=== PATIENT | female | born 1995 | race Caucasian/White ===

== ENCOUNTER 2024-03-23 11:12 | Emergency (ER) | payer OTHER, SELFPAY ==
[2024-03-23 11:15] VITALS: BP 130/85; PULSE 83; RESP 18; TEMP 36.9; O2SAT 97
--- NOTE | 2024-03-23 11:28 | ED.GENADUL_ITS ---
Discharge Plan Disposition Patient Disposition: Home Condition: Stable Discharge Details Clinical Impression: Hives of unknown origin, Allergic reaction Primary Care Provider: Janeth,Local ED Provider: Mildred Aguilar Home Meds and New Rx's Prescriptions: New famotidine [Pepcid] 20 mg tablet 20 mg PO DAILY 7 Days Qty: 7 0RF Rx Instructions: Take 1 tablet daily for the next 7 days prednisone 50 mg tablet 50 mg PO DAILY 5 Days Qty: 5 0RF Rx Instructions: Take 1 tablet daily for the next 5 days No Action lamotrigine [Lamictal] 100 mg tablet 100 mg PO DAILY propranolol [Inderal LA] 120 mg capsule,extended release 24hr 120 mg PO BID escitalopram oxalate [Lexapro] 20 mg tablet 20 mg PO DAILY metformin 500 mg tablet 500 mg PO BID trazodone 50 mg tablet 50 mg PO QHS montelukast [Singulair] 10 mg tablet 10 mg PO DAILY Ajovy Autoinjector 225 mg/1.5 mL auto-injector 225 mg subcut [id number] etonogestrel-ethinyl estradiol [EluRyng] 0.12-0.015 mg/24 hr ring 1 vag ring vaginal ONCE Discharge Instructions Instructions: Allergic Reaction ED Additional Instructions: Please continue to take Claritin or Zyrtec or similar during the day as directed for hives and itching. You may take Benadryl 1 or 2 tablets every 6-8 hours as needed during the nighttime or for severe hives and itching. Please take the Pepcid and prednisone daily as directed. Keep your previously scheduled appointment with the inside sales account manager. Return to the ER for any worsening swelling of your face, trouble breathing, trouble swallowing, wheezing, if you need to use your EpiPen, or concerns. Follow up with primary care provider in 3-5 days. Return to ED sooner if any worsening or concerns. Thank you for allowing us to care for you today. Referrals: Primary Care Provider [Outside] - 5 days HPI General Mode of arrival: ambulatory . Date/Time Provider Initiated Documentation: 03/23/24 11:20 . Limitations to Documentation: no limitations . Information obtained by: patient, RN notes reviewed and old records reviewed . HPI Narrative: 28-year-old female presents to the ER with urticaria hives and pruritus and facial swelling. She has been having hives on and off for the last month and is due to see an inside sales account manager on the . However last night she reports that she started having lip and face swelling which is not normal for her, she does have swollen lips noted, no stridor lungs are clear to auscultation bilaterally. She did take 3 tablets of Benadryl last night the last around 4 AM. She has hives noted to her anterior and posterior torso. She is allergic to sulfa and cephalexin, denies any new detergents or any known source. She does take Lamictal, metformin Singulair propranolol and trazodone. Related Data Home Medications ?Medication ?Instructions ?Recorded ?Confirmed escitalopram oxalate 20 mg tablet 20 mg PO DAILY 03/23/24 03/23/24 (Lexapro) etonogestrel 0.12 mg-ethinyl 1 vag ring vaginal ONCE 03/23/24 03/23/24 estradiol 0.015 mg/24 hr vaginal ring (EluRyng) famotidine 20 mg tablet (Pepcid) 20 mg PO DAILY Allergic reaction 7 03/23/24 days #7 tabs fremanezumab-vfrm 225 mg/1.5 mL 225 mg subcut [id number] 03/23/24 03/23/24 subcutaneous auto-injector (Ajovy) lamotrigine 100 mg tablet 100 mg PO DAILY 03/23/24 03/23/24 (Lamictal) metformin 500 mg tablet 500 mg PO BID 03/23/24 03/23/24 montelukast 10 mg tablet 10 mg PO DAILY 03/23/24 03/23/24 (Singulair) prednisone 50 mg tablet 50 mg PO DAILY Inflammation 5 days 03/23/24 #5 tabs propranolol 120 mg capsule,24 120 mg PO BID 03/23/24 03/23/24 hr,extended release (Inderal LA) trazodone 50 mg tablet 50 mg PO QHS 03/23/24 03/23/24 Previous Rx's ?Medication ?Instructions ?Recorded famotidine 20 mg tablet (Pepcid) 20 mg PO DAILY Allergic reaction 7 03/23/24 days #7 tabs prednisone 50 mg tablet 50 mg PO DAILY Inflammation 5 days 03/23/24 #5 tabs Allergies Allergy/AdvReac Type Severity Reaction Status Date / Time Sulfa (Sulfonamide Allergy Severe Anaphylaxis Verified 03/23/24 11:18 Antibiotics) cephalexin (From Keflex) Allergy Intermediate Skin Rash Verified 03/23/24 11:18 General Stated Complaint: Allergic KUMAR: 3 Review of Systems All systems reviewed & are unremarkable except as noted in HPI and below Constitutional Constitutional: Reports as per HPI ENT Ears, Nose, Mouth, and Throat: Reports lip swelling Integumentary/Breasts Skin/Breast: Reports pruritus, Reports erythema and Reports rash Allergic/Immunologic Allergic/Immunologic: Reports as per HPI, Reports urticaria and Reports lip swelling Exam Narrative Exam Narrative: Constitutional: Alert and oriented x3. Appears stated age. Normal body habitus. Head: Normocephalic, no trauma. Lip swelling noted. Eyes: Pupils PERRL, Red reflex noted, EOM's intact. Eyelids symmetrical without lesions, discharge, or swelling. ENT: Bilateral TM's WNL, External ear normal to inspection, no mastoid TTP, swelling, or erythema, Nasal turbinates WNL, no nasal discharge. Normal dentition, Posterior pharynx WNL, no exudate. Chest: RRR, Normal S1, S2, distal pulses intact. Resp: Lungs clear to auscultation bilaterally, no wheezes, rales, or rhonchi. Abdomen: Soft, non-distended, Normoactive bowel sounds all 4 quads. Musculoskeletal: Normal gait, Moves all 4 extremities without difficulty. Skin: He urticaria and hives noted to anterior and posterior torso, raised red maculopapular rash, capillary refill less than 2 sec. Neurologic: Cranial nerves II-XII intact. Alert and oriented x 3. Motor: No deficits noted. Sensory: Intact bilaterally all 4 extremities. Hematologic/Lymphatic: No ecchymosis, no lymphadenopathy. Course Vital Signs Vital signs: Vital Signs Temperature 36.9 C 03/23/24 11:15 Pulse 83 03/23/24 11:15 Respiratory Rate 18 03/23/24 11:15 Blood Pressure 130/85 03/23/24 11:15 Pulse Oximetry 97 03/23/24 11:15 Temperature 36.9 C 03/23/24 11:15 Temperature Source Oral 03/23/24 11:15 Pulse 83 03/23/24 11:15 Respiratory Rate 18 03/23/24 11:15 Blood Pressure 130/85 03/23/24 11:15 Blood Pressure Position Sitting 03/23/24 11:15 Pulse Oximetry 97 03/23/24 11:15 Oxygen Delivery Method Room Air 03/23/24 11:15 Oxygen Flow Rate 0 03/23/24 11:15 Medical Decision Making 28-year-old female presents to the ER with urticaria hives and pruritus and facial swelling. She has been having hives on and off for the last month and is due to see an inside sales account manager on the . However last night she reports that she started having lip and face swelling which is not normal for her, she does have swollen lips noted, no stridor lungs are clear to auscultation bilaterally. She did take 3 tablets of Benadryl last night the last around 4 AM. She has hives noted to her anterior and posterior torso. She is allergic to sulfa and cephalexin, denies any new detergents or any known source. She does take Lamictal, metformin Singulair propranolol and trazodone. IV ordered, 125 Solu-Medrol, 20 of Pepcid and 25 of Benadryl IV. Will reevaluate after medication administration. 1158: On reevaluation patient reports that she feels her face is becoming less swollen, the redness has decreased to her hives on her torso. Will continue to observe. Patient swelling and rash is decreasing, discussed home care I will give her a prescription for Pepcid and prednisone. Discussed taking Zyrtec or Claritin during the day and Benadryl at night as needed for itching. Encouraged to get keep follow-up appointment with inside sales account manager and discussed return instructions. Patient does have an EpiPen at home. This text was generated using Gold Lasso[employer] system, please disregard any oddities of phrase or misspellings. Medical Records Medical records reviewed: Yes I reviewed the patient's medical records. Quality:SDOH Health Related Social Needs: No Data to Display PFSH All Active Problems (Updated 03/23/24 @ 12:26 by Mildred Aguilar NP) Allergic reaction (Acute) Hives of unknown origin (Acute) Social History Smoking/Tobacco Use Status: Never Smoking risk assessment performed?: Yes Alcohol Intake: current Alcohol Intake frequency: a few times a month Drug use: Never Substance use type: does not use PAWSS Have you Been Recently Intoxicated or Drunk Within the Last 30 days?: No Have you Ever Experienced Previous Episodes of Alcohol Withdrawal?: No Have you ever Experienced Withdrawal Seizures?: No Have you ever Experienced Delirium Tremens(DT)s?: No Have you ever undergone Alcohol Rehabilitation Treatment (i.e, inpt ot outpatient treatment programs)?: No Have you ever Experienced Blackouts?: No Have you ever Combined Alcohol with other Downers within the last 90 days?: No Have you ever Combined Alcohol with any other Substance of Abuse during the last 90 days?: No Positive Blood Alcohol level on Presentation? [PCS.BAL]: No Evidence of Increased Autonomic Activity (i.e. HR>120, tremor, sweating, agitation, nausea)?: No Result: 0
[2024-03-23] MEDS: methylPREDNISolone SUCC 125 MG VIAL IVP (11:41)
[2024-03-23] MEDS: Famotidine 20 MG/2 ML VIAL IVP (11:41)
[2024-03-23] MEDS: diphenhydrAMINE 50 MG/ML VIAL 25 MG IVP (11:41)
--- OUTSIDE RECORDS SUMMARY | 2024-03-23 13:11 | XMS_ITS | Encounter Summary ---
Author Organization [facility] Care Address [address] [place] [address] Care Team Providers Care Freezer Assistant Name Role Phone Julito Mayo MD Primary Care Pro vider Reason for Referral * Diagnostic Imaging (Routine) - Closed Specialty Diagnoses / Procedures Referred By Hiram montalvo Referred To Contact Diagnoses Closed displaced fracture of proximal phalanx of lesser toe of left foot with routine healing, subsequent encounter Procedures XR Toes Left Franca Hyde FNP [address] [place] [id number] Phone: tel: fax: Referral ID Status Reason Start Date Expiration Date Visits Re quested Visits Authorized [id number] Closed 09/20/2019 09/19/2020 1 1 Reason for Visit * Diagnostic Imaging (Routine) - Closed Specialty Diagnoses / Procedures Referred By Hiram montalvo Referred To Contact Diagnoses Closed displaced fracture of proximal phalanx of lesser toe of left foot with routine healing, subsequent encounter Procedures XR Toes Left Franca Hyde FNP [address] [place] [phone] Phone: tel: fax: Referral ID Status Reason Start Date Expiration Date Visits Re quested Visits Authorized [id number] Closed 09/20/2019 09/19/2020 1 1 Encounter Details Date Type Department Care Team (Latest Contact Info) Description 09/20/2019 3:11 PM EDT - 09/20/2019 11:59 PM EDT Hospital Encounter IMG DIAG X-RAY [facility] [address] [facility] [address] [place] [address] Mary Ellen, May Graciela, COLOR WEIGHER [address] [place], [place] [id number] Injury of left toe, subsequent encounter Discharge Disposition: Home with Self Care Social History Tobacco Use Types Packs/Day Years Used Date Smoking Tobacco: Never Smokeless Tobacco: Never Alcohol Use Standard Drinks/Week Comments Yes 0 (1 standard drink = 0.6 oz pur e alcohol) occas PHQ-2 Answer Date Recorded PHQ-2 Total Score 2 09/05/2019 Comments No Sex and Gender Information Value Date Recorded Sex Assigned at Not on file Legal Sex Female 11:55 PM EST Gender Identity Not on file Sexual Orientation Not on file Occupation Industry Job Start Date Job End Date student [employer] Not on file Not on file Not on file documented as of this encounter Medications at Time of Discharge B2-mag cit & ox-feverfew (MIGRELIEF) 200-180-50 mg Tab Take 1 tablet by mouth Two (2) times a day. docusate sodium (COLACE) 50 MG capsule Take by mouth Two (2) times a day. escitalopram oxalate (LEXAPRO) 20 MG tablet Take 20 mg by mouth daily. fluticasone-vilante rol (BREO ELLIPTA) 100-25 mcg/dose inhaler Inhale 1 puff nightly. HYDROcodone-acetami nophen (NORCO) 5-325 mg per tablet Take 1 tablet by mouth every six (6) hours as needed for pain. 20 tablet 08/23/2019 lamoTRIgine (LAMICTAL) 25 MG tablet Take 100 mg by mouth daily. levocetirizine (XYZAL) 5 MG tablet Take 5 mg by mouth every evening. melatonin 3 mg Tab Take 6 mg by mouth nightly. montelukast (SINGULAIR) 10 mg tablet Take 10 mg by mouth nightly. multivitamin (MULTIVITAMIN) per tablet Take 1 tablet by mouth daily. prazosin (MINIPRESS) 2 MG capsule Take 1 capsule (2 mg total) by mouth nightly. 90 capsule 3 09/05/2019 propranolol (INDERAL LA) 80 mg 24 hr capsule Take 80 mg by mouth daily. migraines propranoloL (INDERAL XL) 120 MG 24 hr capsule Take 120 mg by mouth every morning. thyroid, pork, (ARMOUR THYROID) 180 mg Tab Take by mouth nightly. traZODone (DESYREL) 50 MG tablet Take 50 mg by mouth nightly. norethindrone-ethin yl estradiol (02/25, ,) 1-20 mg-mcg per tabletIndications:E ncounter for surveillance of contraceptive pills Take 1 tablet by mouth daily. 84 tablet 09/05/2019 0 documented as of this encounter Plan of Treatment Not on file documented as of this encounter Procedures Procedure Name Priority Date/Time Associated Diagnosis Comments XR TOES LEFT Routine 09/20/2019 3:21 PM EDT Injury of left toe, subsequent encounter documented in this encounter Results * XR Toes Left (09/20/2019 3:21 PM EDT) Anatomical Region Laterality Modality Foot Left Radiographic Iveth ging 09/20/2019 3:26 PM EDT Impressions 09/20/2019 3:27 PM EDT Healing and otherwise unchanged small toe proximal phalanx fracture. Narrative 09/20/2019 3:27 PM EDT EXAM: XR TOES LEFT DATE: 09/20/2019 3:21 PM DICTATED: 09/20/2019 3:26 PM INTERPRETATION LOCATION: [facility] [place] CLINICAL INDICATION: 24 years old Female with eval left 5th toe injury ??- S99.922D - Injury of left toe, subsequent encounter ?? COMPARISON: 08/19/2019 TECHNIQUE: AP, lateral, oblique views of the left fifth toe. FINDINGS: Healing minimally displaced transverse fracture of the small toe proximal phalanx with callus formation. Alignment is unchanged. No new fracture. Joint spaces are preserved. Decreased soft tissue swelling. Procedure Note Nate Mclean MD - 09/20/2019 EXAM: XR TOES LEFT DATE: 09/20/2019 3:21 PM DICTATED: 09/20/2019 3:26 PM INTERPRETATION LOCATION: [facility] [place] CLINICAL INDICATION: 24 years old Female with eval left 5th toe injury -S99.922D - Injury of left toe, subsequent encounter COMPARISON: 08/19/2019 TECHNIQUE: AP, lateral, oblique views of the left fifth toe. FINDINGS: Healing minimally displaced transverse fracture of the small toe proximalphalanx with callus formation. Alignment is unchanged. No new fracture.Joint spaces are preserved. Decreased soft tissue swelling. IMPRESSION: Healing and otherwise unchanged small toe proximal phalanx fracture. May Graciela Hyde COLOR WEIGHER IMG DIAGNOSTIC IMAGING ORDERABLES Final Result documented in this encounter Visit Diagnoses Diagnosis Injury of left toe, subsequent encounter documented in this encounter Care Teams Freezer Assistant Relationship Specialty Start Date End Date Julito Mayo MD [address] [place] [id number] PCP - General Family Medicine 09/06/19 02/11/20 documented as of this encounter
--- OUTSIDE RECORDS SUMMARY | 2024-03-23 13:11 | XMS_ITS | Clinical Summary ---
Author Organization [facility] Care Address [address] [place] [address] Care Team Providers Care Lumber Material Handler Name Role Phone Natanael Santoyo MD Primary Care Provider + Source Comments In the event that these patient records contain information protected by 42 CFRpart 2 (i.e., would identify the patient as a substance abuser and was obtainedby a federally assisted substance abuse program to diagnose, refer fortreatment or treat the patient for substance abuse), please be advised of thefollowing: This information has been disclosed to you from records protected by Federalconfidentiality rules (42 CFR part 2). The Federal rules prohibit you frommaking any further disclosure of this information unless further disclosure isexpressly permitted by the written consent of the person to whom it pertains oras otherwise permitted by 42 CFR part 2. A general authorization for therelea se of medical or other information is NOT sufficient for this purpose.The Federal rules restrict any use of the information to criminally investigateor prosecute any alcohol or drug abuse patient. expressly permitted by the written consent of the person to whom it pertains or as otherwise permitted by 42 CFR part 2. A general authorization for the release of medical or other information is NOT sufficient for this purpose. The Federal rules restrict any use of the information to criminally investigate or prosecute any alcohol or drug abuse patient.[facility] Allergies Active Allergy Reactions Criticality Noted Date Comments Cephalosporins Rash Low 03/07/2014 Sulfa (Sulfonamide Antibiotics) Anaphylaxis High Medications B2-mag cit & ox-feverfew (MIGRELIEF) 200-180-50 mg Tab Take 1 tablet by mouth Two (2) times a day. Active fluticasone-moe anterol (BREO ELLIPTA) 100-25 mcg/dose inhaler Inhale 1 puff nightly. Active docusate sodium (COLACE) 50 MG capsule Take by mouth Two (2) times a day. Active propranolol (INDERAL LA) 80 mg 24 hr capsule Take 80 mg by mouth daily. migraines Active lamoTRIgine (LAMICTAL) 25 MG tablet Take 100 mg by mouth daily. Active traZODone (DESYREL) 50 MG tablet Take 50 mg by mouth nightly. Active thyroid, pork, (ARMOUR THYROID) 180 mg Tab Take by mouth nightly. Active multivitamin (MULTIVITAMIN) per tablet Take 1 tablet by mouth daily. Active melatonin 3 mg Tab Take 6 mg by mouth nightly. Active propranoloL (INDERAL XL) 120 MG 24 hr capsule Take 120 mg by mouth every morning. Active escitalopram oxalate (LEXAPRO) 20 MG tablet Take 20 mg by mouth daily. Active levocetirizine (XYZAL) 5 MG tablet Take 5 mg by mouth every evening. Active montelukast (SINGULAIR) 10 mg tablet Take 10 mg by mouth nightly. Active HYDROcodone-tye taminophen (NORCO) 5-325 mg per tablet Take 1 tablet by mouth every six (6) hours as needed for pain. 20 tablet 0 Active Additional Information Patient not taking.Reported on 10/24/2019 prazosin (MINIPRESS) 2 MG capsule Take 1 capsule (2 mg total) by mouth nightly. 90 capsule 3 0 Active JUNEL 1.5/, 21, 1.5-30 mg-mcg Tab TAKE 1 TABLET ONCE DAILY 84 tablet 0 Active predniSONE (DELTASONE) 20 MG tablet 3 po daily for 2 days, then 2 po daily for 2 days, then 1 po daily for 2 days 12 tablet 4 Active Active Problems Problem Noted Date Diagnosed Date Anxiety 09/05/2019 Gastroesophageal reflux disease 09/05/2019 Allergic rhinitis 09/05/2019 Migraine without aura and wi thout status migrainosus, not intractable 02/06/2018 Chondromalacia patellae 12/01/2017 Obesity (BMI 30-39.9) 11/20/2017 Mild intermittent asthma with acute exacerbation 04/20/2015 Raynaud's phenomenon 10/15/2014 Other specified behavioral a nd emotional disorders with onset usually occurring in childhood and adolescence 10/15/2014 Attention deficit disorder 10/15/2014 Depression 10/15/2014 Headache 10/15/2014 Acquired hypothyroidism 10/07/2006 Immunizations Immunization Administration Dates Next Due DTaP 12/15/1998, 9,01/12/1998,11/11 HPV Quadrivalent (Gardasil) 12/16/2010, 1,05/19/2010 Hepatitis A Vaccine Pediatri c / Adolescent 2 Dose IM 12/16/2010,05/19/2010 Hepatitis B vaccine, pediatric/adolescent dosage, 01/12/1998,1997,1997 HiB, unspecified 12/15/1998,01/12/1998, 8 INFLUENZA TIV (TRI) PF (IM)(HISTORICAL) 11/22/2013 Influenza Vaccine Quad(IM)6 MO-Adult(PF) 11/27/2018,11/17/2017 MMR 06/24/2002,09/21/1998 Meningococcal Conjugate MCV4P 11/17/2017, 009 PNEUMOCOCCAL POLYSACCHARIDE 23-VALENT 06/26/2018 TdaP 11/06/2016 Varicella 11/30/2006,09/21/1998 Family History Medical History Relation Name Comments Hyperlipidemia Father Hypertension Father Anxiety disorder Mother Depression Mother Heart disease Paternal Grandfather Diabetes Paternal Grandmother Relation Name Status Comments Father Alive Mother Alive Paternal Grandfather Paternal Grandmother Social History Tobacco Use Types Packs/Day Years Used Date Smoking Tobacco: Never Smokeless Tobacco: Never Alcohol Use Standard Drinks/Week Comments Yes 0 (1 standard drink = 0.6 oz pur e alcohol) occas PHQ-2 Answer Date Recorded PHQ-2 Total Score 2 09/05/2019 Substance Use Answer Date Recorded In the past year, how often have you used prescription drugs for non-medical reasons? Not on file 12/16/2023 In the past year, how often have you used illega l drugs? Not on file 12/16/2023 In the past year, have you u sed any substance for non-medical reasons? No 12/16/2023 Comments No Sex and Gender Information Value Date Recorded Sex Assigned at Not on file Legal Sex Female 11:55 PM EST Gender Identity Not on file Sexual Orientation Not on file Occupation Industry Job Start Date Job End Date student [employer] Not on file Not on file Not on file Last Filed Vital Signs Vital Sign Reading Time Taken Comments Blood Pressure 111/86 11/20/2023 7:21 PM EDT Pulse 95 11/20/2023 7:21 PM EDT Temperature 37.9 ??C (100.3 ??F) 11/20/2023 10:45 PM EDT Respiratory Rate 19 11/20/2023 7:21 PM EDT Oxygen Saturation 94% 11/20/2023 10: 45 PM EDT DOWN TO 91% WHILE AMBULATING, PAC AWARE Inhaled Oxygen Concentration - - Weight 98.4 kg (217 lb) 11/20/2023 7:19 PM EDT Height 147.3 cm (4' 10) 11/20/2023 7:1 9 PM EDT Body Mass Index 45.35 11/20/2023 7:19 PM EDT Plan of Treatment Health Maintenance Due Date Last Done Comments Pap Smear with Reflex HPV (21-) 03/04/2023 03/04/2020 COVID-19 Vaccine ( season) 2023 05/05/2020, 04/06/2020 Influenza Vaccine (#1) 2023 9, 11/17/2017, 11/22/2013, Additional history exists DTaP/Tdap/Td Vaccines (8 - Td or Tdap) 11/06/2026 11/06/2016, 09/16/2008, 06/24/2002, Additional history exists HPV Vaccines Completed 12/16/2010, 0707/2010, 05/19/2010 Hepatitis C Screen Completed 01/26/2017 Pneumococcal Vaccine 0-49 Aged Out 06/26/2018 No longer eligible based on patient's age to complete [place] [address] [place] [address] [facility] [employer] Care Teams Lumber Material Handler Relationship Specialty Start Date End Date Natanael Santoyo MD [address] [place] [id number] PCP - General Internal Medicine 11/20/23
--- OUTSIDE RECORDS SUMMARY | 2024-03-23 13:11 | XMS_ITS | Encounter Summary ---
Author Organization [facility] Health Care Address [address] [place] [id number] Care Team Providers Care Building Construction Foreman Name Role Phone Toshia Heller MD Primary Care [facility] Reason for Referral * Generic Referral (Routine) - Closed Specialty Diagnoses / Procedures Referred By Contac t Referred To Contact Obstetrics and Gynecology Diagnoses Encounter for surveillance of contraceptive pills Well woman exam Julito Mayo MD [address] [place] [id number] Phone: tel: fax: [facility] [address] [place] [address] Phone: tel: fax: Referral ID Status Reason Start Date Expiration Date V isits Requested Visits Authorized [id number] Closed Specialty Services Required 09/05/2019 09/04/2020 1 1 * Generic Referral (Routine) - Closed Specialty Diagnoses / Procedures Referred By Contac t Referred To Contact Diagnoses Gastroesophageal reflux disease, esophagitis presence not specified Abdominal pain, unspecified abdominal location Julito Mayo MD [address] [place] [address] Phone: tel: fax: Referral ID Status Reason Start Date Expiration Date V isits Requested Visits Authorized [id number] Closed Specialty Services Required 09/05/2019 09/04/2020 1 1 * Generic Referral (Routine) - Closed Specialty Diagnoses / Procedures Referred By Contac t Referred To Contact Orthopedic Surgery Diagnoses Closed nondisplaced fracture of phalanx of lesser toe of left foot, unspecified phalanx, sequela Julito Mayo MD [address] [address] Phone: tel: fax: [facility] [address] [address] Phone: tel: fax: Referral ID Status Reason Start Date Expiration Date V isits Requested Visits Authorized [id number] Closed Specialty Services Required 09/05/2019 09/04/2020 1 1 * Generic Referral (Routine) - Closed Specialty Diagnoses / Procedures Referred By Contac t Referred To Contact Diagnoses Acquired hypothyroidism Julito Mayo MD [address] [address] Phone: tel: fax: Referral ID Status Reason Start Date Expiration Date V isits Requested Visits Authorized [id number] Closed Specialty Services Required 09/05/2019 09/04/2020 1 1 * Generic Referral (Routine) - Closed Specialty Diagnoses / Procedures Referred By Contac t Referred To Contact Diagnoses Migraine without aura and without status migrainosus, not intractable Julito Mayo MD [address] [address] Phone: tel: fax: Referral ID Status Reason Start Date Expiration Date V isits Requested Visits Authorized [id number] Closed Specialty Services Required 09/05/2019 09/04/2020 1 1 * Generic Referral (Routine) - Closed Specialty Diagnoses / Procedures Referred By Contac t Referred To Contact Diagnoses Mild intermittent asthma with acute exacerbation Allergic rhinitis, unspecified seasonality, unspecified trigger Julito Mayo MD [address] [place] [address] Phone: tel: fax: Referral ID Status Reason Start Date Expiration Date V isits Requested Visits Authorized [id number] Closed Specialty Services Required 09/05/2019 09/04/2020 1 1 Reason for Visit * Reason Comments Establish Care Referral Setup requesting referrals to allergy dr. Buchanan at [facility] backdated to july. Dr. Elias [address] [place] [address] [facility] Dr. Niko luna gastro back dated to april, [facility] back dated to this past monday, therapist nicole stack with [facility] in [place], [place], Would like General referral to Gynecology * Generic Referral (Routine) - Closed Specialty Diagnoses / Procedures Referred By Hiram montalvo Referred To Contact Family Medicine Diagnoses establish care Procedures NEW GENERAL [facility] [address] [place] [address] Phone: tel: fax: Julito Mayo MD [facility] [place] [address] Phone: tel: fax: Referral ID Status Reason Start Date Expiration Date Visits Re quested Visits Authorized [id number] Closed 09/05/2019 09/04/2020 1 1 Encounter Details Date Type Department Care Team (Latest Contact Info) Description 09/05/2019 11:10 AM EDT Office Visit [facility] [address] [place] [address] Julito Mayo MD [facility] [place] [address] Acquired hypothyroidism (Primary Dx); Mild intermittent asthma with acute exacerbation; Migraine without aura and without status migrainosus, not intractable; Recurrent major depressive disorder, remission status unspecified ([facility]); Attention deficit disorder, unspecified hyperactivity presence; Allergic rhinitis, unspecified seasonality, unspecified trigger; Encounter for surveillance of contraceptive pills; Well woman exam; Closed nondisplaced fracture of phalanx of lesser toe of left foot, unspecified phalanx, sequela; Gastroesophageal reflux disease, esophagitis presence not specified; Abdominal pain, unspecified abdominal location; Anxiety Social History Tobacco Use Types Packs/Day Years [...] on file documented as of this encounter Last Filed Vital Signs Vital Sign Reading Time Taken Comments Blood Pressure 116/74 09/05/2019 11:08 AM EDT Pulse 77 09/05/2019 11:08 AM EDT Temperature 37.4 ??C (99.4 ??F) 09/05/2019 11:08 AM E DT Respiratory Rate - - Oxygen Saturation 98% 09/05/2019 11:08 AM EDT Inhaled Oxygen Concentration - - Weight 96.4 kg (212 lb 8 oz) 09/05/2019 11:08 AM EDT Height 147.3 cm (4' 10) 09/05/2019 11:08 AM EDT Body Mass Index 44.41 09/05/2019 11:08 AM EDT documented in this encounter Functional Status documented as of this encounter Patient Instructions * Patient Instructions* Julito Mayo MD - 09/05/2019 11:10 AM EDT Images from the original note were not included. Patient Education Heart-Healthy Diet: Care Instructions Your Care Instructions A heart-healthy diet has lots of vegetables, fruits, nuts, beans, and whole grains, and is low in salt. It limits foods that are high in saturated fat, such as meats, cheeses, and fried foods. It maybe hard to change your diet, but even small changes can lower your risk of heart attack and heart disease. Follow-up care is a marie part of your treatment and safety. Be sure to make and go to all appointments, and call your doctor if you are having problems. It's also a good idea to know your test resultsand keep a list of the medicines you take. How can you care for yourself at home? Watch your portions ?? Learn what a serving is. A serving and a portion are not always the same thing. Make sure that you are not eating larger portions than are recommended. For example, a serving of pasta is ?? cup. A serving size of meat is 2 to 3 ounces. A 3-ounce serving is about the size of a deck of cards. Measure serving sizes until you are good at eyeballing them. Keep in mind that restaurants often serve portions that are 2 or 3 times the size of one serving. ?? To keep your energy level up and keep you from feeling hungry, eat often but in smaller portions. ?? Eat only the number of calories you need to stay at a healthy weight. If you need to lose weight, eat fewer calories than your body coates (through exercise and other physical activity). Eat more fruits and vegetables ?? Eat a variety of fruit and vegetables every day. Dark green, deep orange, red, or yellow fruits and vegetables are especially good for you. Examples include spinach, carrots, peaches, and berries. ?? Keep carrots, celery, and other veggies handy for snacks. Buy fruit that is in season and store it where you can see it so that you will be tempted to eat it. ?? Cook dishes that have a lot of veggies in them, such as stir-fries and soups. Limit saturated and trans fat ?? Read food labels, and try to avoid saturated and trans fats. They increase your risk of heart disease. ?? Use olive or canola oil when you cook. ?? Bake, broil, grill, or steam foods instead of frying them. ?? Choose lean meats instead of high-fat meats such as hot dogs and sausages. Cut off all visible fat when you prepare meat. ?? Eat fish, skinless poultry, and meat alternatives such as soy products instead of high-fat meats. Soy products, such as tofu, may be especially good for your heart. ?? Choose low-fat or fat-free milk and dairy products. Eat foods high in fiber ?? Eat a variety of grain products every day. Include whole-grain foods that have lots of fiber andnutrients. Examples of whole-grain foods include oats, whole wheat bread, and brown rice. ?? Buy whole-grain breads and cereals, instead of white bread or pastries. Limit salt and sodium ?? Limit how much salt and sodium you eat to help lower your blood pressure. ?? Taste food before you salt it. Add only a little salt when you think you need it. With time, your taste buds will adjust to less salt. ?? Eat fewer snack items, fast foods, and other high-salt, processed foods. Check food labels for the amount of sodium in packaged foods. ?? Choose low-sodium versions of canned goods (such as soups, vegetables, and beans). Limit sugar ?? Limit drinks and foods with added sugar. These include candy, desserts, and soda pop. Limit alcohol ?? Limit alcohol to no more than 2 drinks a day for men and 1 drink a day for women. Too much alcohol can cause health problems. When should you call for help? Watch closely for changes in your health, and be sure to contact your doctor if: ?? You would like help planning heart-healthy meals. Where can you learn more? Go to [facility] at https://[facility].org Select bluebird bio under the Resources menu. Enter V137 in the search box to learn more about Heart-Healthy Diet: Care Instructions. Current as of: September 27, 2018?Content Version: 12.5 ?? [id number] [employer]. Care instructions adapted under license by [facility]. If you have questions about a medical condition or this instruction, always ask your healthcare professional. [employer] disclaims any warranty or liability for your use of this information. documented in this encounter Progress Notes * Julito Mayo MD - 09/05/2019 11:10 AM EDT CC: Chief Complaint Patient presents with ??? Establish Care ??? Referral Setup requesting referrals to allergy dr. Buchanan at [facility] backdated to july. [facility] backdated to april, [facility], [facility]. Dr. Niko luna gastro back dated to april, [facility] back dated to this past monday, therapist nicole stack with [facility] in [place], Would like General referral to Gynecology S: -- Establishing care, needs referrals for continued care. -- Sees Allergy Ptnrs for A/A issues. Paul Tavera Singulair. Has a prn albuterol, uses once per 6 mo. Occas slight sx that she is able to manage w/o MDI. Triggers = exercise, URIs, some AIA sx. Never had allergy shots. Manageable for now. -- Migraines. Dxd since a child. Currently gets one r/t caffeine, chocolate etc. Occurs once a month or less. Inderal 120am and 80pm preventive; abortive is Imitrex shots, or naratriptan PO; also hasajovy q3m, and ubrelvy. Atarax prn TRUONG as well has helped. No viz loss or N/W extrs. No aura. In past could occur when awakening. No snoring or wit apnea. -- Endocrine for hypothyroid and short stature. Dxd 11yo. No XRT or surgery to thyroid. Was found oneval of falling off the growth chart. States TSH>100 before meds. Was on GH shots for 4 yrs as well, of those now (since menarche). Denies concerns about thyroid dose; states very stable past couple yrs -- [facility] Ortho for fx toe. See note in chart. Was running c dog, tripped and it went out. No surgery,just hard soled shoe. Sporadic Lortab now. Pain off/on. Has f/u next mo. -- Dr. Pope for GERD, also some ill defined abd pains. PRN Bentyl helps that. Initial sx were some ocas vomiting. She had bell out was crystallized, helped partially. PRN Zofran used for these sx as well, QOD-QD use 4mg ODT. Workup still in progress per pt. No BRB/melena. Tends to some constipated, has Colace. Bentyl does not worsen her constipation. BM q3d. Had tried Linzess samples that helped some. Does not like Miralax. -- Mood d/o since 13yo. Denies BPD, just anx/dep/ADHD. Lamictal, Lexapro been on Lamitcal few yrs, resumed Lexapro 6mo ago. In general they do well for her sx. Has ? OTC lithium supp. No current hopeless/SI thought (has had in past). Has had panic attacks in past, but therapy is helping. Has Klonopin for prn use. Has done DBT/mindfullness tx in past. Feels in control of sx @ present. Has Trazodone for sleep. Also has Prazosin 2mg from Neuro for night terrors. -- desires FIRE ENGINE PUMP OPERATOR referral for routine care. On OCPs for irreg menses as well. OCP does not worsen hermigraines or mood. No ACHES sx on it (nothing new since she got on it 3-4 yr ago related to above. ROS above. Otherwise 10 point ROS negative as per intake form. Past Medical History: Diagnosis Date ??? Acid reflux ??? ADHD (attention deficit hyperactivity disorder) ??? Anemia ??? Anxiety ??? Asthma ??? Benign essential tremor ??? Depression ??? History of Helicobacter pylori infection ??? History of MRSA infection 2013 left leg ??? Hypothyroidism, juvenile ??? IgA deficiency (CMS-HCC) ??? Low ferritin ??? Migraines ??? Obesity Past Surgical History: Procedure Laterality Date ??? COLONOSCOPY ? ulcer ??? ESOPHAGOGASTRODUODENOSCOPY x2 ??? KNEE ARTHROSCOPY Bilateral ??? [place] LAP,CHOLECYSTECTOMY N/A 06/15/2017 Procedure: LAPAROSCOPIC CHOLECYSTECTOMY; Surgeon: New Felton MD; Location: [facility]; Service: General Surgery ??? TONSILLECTOMY AND ADENOIDECTOMY ??? TYMPANOSTOMY TUBE PLACEMENT Bilateral Family History Problem Relation Age of Onset ??? Depression Mother ??? Anxiety disorder Mother ??? Hypertension Father ??? Hyperlipidemia Father ??? Diabetes Paternal Grandmother ??? Heart disease Paternal Grandfather Social History Socioeconomic History ??? Marital status: Single Spouse name: None ??? Number of children: None ??? Years of education: None ??? Highest education level: None Occupational History ??? Occupation: student [employer] Social Needs ??? Financial resource strain: None ??? Food insecurity Worry: None Inability: None ??? Transportation needs Medical: None Non-medical: None Tobacco Use ??? Smoking status: Never Smoker ??? Smokeless tobacco: Never Used Substance and Sexual Activity ??? Alcohol use: Yes Frequency: Monthly or less Comment: occas ??? Drug use: No ??? Sexual activity: Yes Partners: Male control/protection: Pill Lifestyle ??? Physical activity Days per week: None Minutes per session: None ??? Stress: None Relationships ??? Social connections Talks on phone: None Gets together: None Attends mormon service: None Active member of club or organization: None Attends meetings of clubs or organizations: None Relationship status: None Other Topics Concern ??? None Social History Narrative ??? None Allergies Allergen Reactions ??? Sulfa (Sulfonamide Antibiotics) Anaphylaxis ??? Cephalosporins Rash Current Outpatient Medications: ? ? B2-mag cit & ox-feverfew (MIGRELIEF) 200-180-50 mg Tab, Take 1 tablet by mouth Two (2) times a day. , Disp: , Rfl: ??? docusate sodium (COLACE) 50 MG capsule, Take by mouth Two (2) times a day., Disp: , Rfl: ??? escitalopram oxalate (LEXAPRO) 20 MG tablet, Take 20 mg by mouth daily., Disp: , Rfl: ??? fluticasone-vilanterol (BREO ELLIPTA) 100-25 mcg/dose inhaler, Inhale 1 puff nightly., Disp: , Rfl: ??? HYDROcodone-acetaminophen (NORCO) 5-325 mg per tablet, Take 1 tablet by mouth every six (6) hours as needed for pain., Disp: 20 tablet, Rfl: 0 ??? lamoTRIgine (LAMICTAL) 25 MG tablet, Take 100 mg by mouth daily. , Disp: , Rfl: ??? levocetirizine (XYZAL) 5 MG tablet, Take 5 mg by mouth every evening., Disp: , Rfl: ??? melatonin 3 mg Tab, Take 6 mg by mouth nightly., Disp: , Rfl: ??? montelukast (SINGULAIR) 10 mg tablet, Take 10 mg by mouth nightly., Disp: , Rfl: ??? multivitamin (MULTIVITAMIN) per tablet, Take 1 tablet by mouth daily., Disp: , Rfl: ??? norethindrone-ethinyl estradiol (JUNEL ,) 1-20 mg-mcg per tablet, Take 1 tablet by mouth daily., Disp: , Rfl: ??? propranolol (INDERAL LA) 80 mg 24 hr capsule, Take 80 mg by mouth daily. migraines , Disp: , Rfl: ??? propranoloL (INDERAL XL) 120 MG 24 hr capsule, Take 120 mg by mouth every morning., Disp: , Rfl: ??? thyroid, pork, (ARMOUR THYROID) 180 mg Tab, Take by mouth nightly., Disp: , Rfl: ??? traZODone (DESYREL) 50 MG tablet, Take 50 mg by mouth nightly., Disp: , Rfl: Vitals: 09/05/19 1108 BP: 116/74 Pulse: 77 Temp: 37.4 ??C (99.4 ??F) SpO2: 98% Vitals: 09/05/19 1108 Weight: 96.4 kg (212 lb 8 oz) O: GEN: WDWN. NAD. nontoxic. EYES: PERRL. EOMI. no conjunctivitis or jaundice. ENT: TMs normal without eryth, opacity, or bulge. EACs benign withouth eryth, edema, or lesions. NECK: Supple. No LAD. 2+ carotids. No carotid bruits. Posterior neck MMs somethat tight. Thyroid mild generous but symmetric, no palpable nodules. HEART: RRR. no MGR. LUNG: CTAB. unlabored. no WRR. ABD: Soft. Nontender. Nondistended. NABS. No HSM palpable. No midline bruits. No rebound, guarding,or rigidity. EXTREMETIES: Warm and dry. No PTE. NEURO: Good gait. SKIN: No jaundice. No mottling. No unusual pallor. MALE: FEMALE: BREAST: PSY: Normal mood. Normal affect. Well kempt. Clear and coherent thought and speech. A/P: -- A/A stable, manageable, ok referral. -- Migraines stable, ok referral. -- Hypothyroid, ok referral. Gets labs there. She does not recall a PCOS w/u in past, could consider asking them (or FIRE ENGINE PUMP OPERATOR) given abnl menses, obesity, etc. -- ok referral for continued f/u @ [facility] Ortho for toe fx. -- GERD, also ill defined abd pains, constipation issues, cramps etc, poss IBS? Await notes, ok referral. -- Anxiety, depression, ADHD, stable, ok referral. -- ok referral for routine FIRE ENGINE PUMP OPERATOR care. Gave 1 rf of BCPs pending. Tolerated well. -- Will await specialist notes and follow along. OK to f/u here for next routine CPE, or prn. Medication adherence and barriers to the treatment plan have been addressed. Opportunities to optimize healthy behaviors have been discussed. Patient / caregiver voiced understanding. Barriers to goals identified and addressed. Pertinent handouts given today if indicated. Encouragedkeeping regular logs as indicated for me to review at next visit if indicated. No outside resources/referrals needed at this time unless listed. The potential common side effects and benefits associated with any new medications that were prescribed today were discussed and patient expressed understanding and agreement to the treatment plan. documented in this encounter Plan of Treatment Not on file documented as of this encounter Results * Ambulatory referral to Gynecology (10/04/2019) Impressions Natty Boucher - 10/04/2019 Unable to contact patient after numerous times Per [facility] van driver helper at [facility] us Julito Mayo MD OUTPATIENT REFERR AL ORDERABLES Final Result * Ambulatory referral to Orthopedic Surgery (09/20/2019) Impressions Natty Boucher - 09/20/2019 Saw Franca Hyde at [facility] Ortho on 09/20/19 Office notes are in epic under the chart review tab then see encounters us Julito Mayo MD OUTPATIENT REFERR AL ORDERABLES Final Result * Ambulatory referral to Neurology (07/19/2019) Result María Elena Mayo MD OUTPATIENT REFERR AL ORDERABLES Final Result * Ambulatory referral to Immunology (07/17/2019) ImpressionNatty Lamb - 07/17/2019 She is a patient of Dr Isabel Schroeder and was seen on 07/17/19 And needed a back dated authorization for that visit Result María Elena Mayo MD OUTPATIENT REFERR AL ORDERABLES Final Result * Ambulatory referral to Endocrinology (05/31/2019) Natty Garrido - 05/31/[address] Edie Oconnor on 05/31/19 at [place] Office notes are in care everywhere us Julito Mayo MD OUTPATIENT REFERR AL ORDERABLES Final Result * Ambulatory referral to Gastroenterology (04/16/2019) ImpressionNatty Lamb - 04/16/2019 She was seen at [facility] and needed a back dated authorization from [facility] To cover her visit on 04/16/19 Result María Elena Mayo MD OUTPATIENT REFERR AL ORDERABLES Final Result documented in this encounter Visit Diagnoses Diagnosis Acquired hypothyroidism- Primary Unspecified hypothyroidism Mild intermittent asthma with acute exacerbation Migraine without aura and without status migrainosus, not intractable Recurrent major depressive disorder, remission status unspecified ([facility]) Attention deficit disorder, unspecified hyperactivity presence Allergic rhinitis, unspecified seasonality, unspecified trigger Encounter for surveillance of contraceptive pills Well woman exam Routine general medical examination at a health care facility Closed nondisplaced fracture of phalanx of lesser toe of left foot, unspecified phalanx, sequela Gastroesophageal reflux disease, esophagitis presence not specified Abdominal pain, unspecified abdominal location Anxiety Anxiety state, unspecified Closed displaced fracture of proximal phalanx of lesser toe of left foot with routine healing, subsequent encounter- Primary Closed nondisplaced fracture of proximal phalanx of lesser toe of left foot with routine healing, subsequent encounter Mild intermittent asthma with acute exacerbation Allergic rhinitis, unspecified seasonality, unspecified trigger Migraine without aura and without status migrainosus, not intractable Acquired hypothyroidism Unspecified hypothyroidism Gastroesophageal reflux disease, esophagitis presence not specified Abdominal pain, unspecified abdominal location Encounter for surveillance of contraceptive pills Well woman exam Routine general medical examination at a health care facility documented in this encounter Care Teams Building Construction Foreman Relationship Specialty Start Date End Date Toshia Heller MD PCP - General 03/13/14 09/05/19 documented as of this encounter
--- OUTSIDE RECORDS SUMMARY | 2024-03-23 13:11 | XMS_ITS | Encounter Summary ---
Author Organization [facility] Address [address] [place] [address] Care Team Providers Care Employee Communications Manager Name Role Phone Julito Mayo MD Primary Care Pro vider Reason for Visit * Reason Comments Insect Bite c/o ant bite to L fo ot yesterday; L foot dorsal side appears red and swollen Encounter Details Date Type Department Care Team (Late st Contact Info) Description 10/24/2019 12:45 PM EDT Office Visit [facility] [address] [facility] [place] [address] [place] [address] Yenny Serrano PA [address] [place] [address] Cellulitis of left lower extremity (Primary Dx) Social History Tobacco Use Types Packs/Day Years [...] Sign Reading Time Taken Comments Blood Pressure 144/69 10/24/2019 12:55 PM EDT Pulse 85 10/24/2019 12:55 PM EDT Temperature 36.7 ??C (98.1 ??F) 10/24/2019 12:55 PM E DT Respiratory Rate 20 10/24/2019 12:55 PM EDT Oxygen Saturation 98% 10/24/2019 12:55 PM EDT Inhaled Oxygen Concentration - - Weight 97 kg (213 lb 13.5 oz) 10/24/2019 12:55 P M EDT Height 147.3 cm (4' 10) 10/24/2019 12:55 PM EDT Body Mass Index 44.69 10/24/2019 12:55 PM EDT documented in this encounter Patient Instructions * Patient Instructions* Yenny Serrano PA - 10/24/2019 12:45 PM EDT You were seen in the today for cellulitis which is a skin infection. This will get better with the help of antibiotics. You will take it twice a day for 10 days. You can still apply hydrocortisoneand benadryl creams and take oral benadryl at night if there is itching. If you get worse after 2 full days of antibiotics, you will need to return or go to the Emergency Room. documented in this encounter Progress Notes * Yenny Serrano PA - 10/24/2019 12:45 PM EDT Assessment/Plan: Diagnoses and all orders for this visit: Cellulitis of left lower extremity - doxycycline (VIBRAMYCIN) 100 MG capsule; Take 1 capsule (100 mg total) by mouth Two (2) times a day for 10 days. 12:45 PM Linh Carvalho is a 24 y/o F with PMH of asthma, hypothyroidism, migraines who presented to the with concerns for a possible infected ant bite to her left foot which was initially sustained yesterday. VS with slight HTN. PE demonstrates: left dorsal foot with erythema, mild swelling and warmth to touch. DP pulses 2+. NV intact. Full ROM. Due to degree of erythema and pt reports of pain rather than itching, will treat with Doxycycline BID x 10 days. I recommended topical hydrocortisone or benadryl if itching becomes a concern. I discussed strict return precautions for worsening redness, warmth, swelling. She voiced understanding and all questions were answered prior to discharge. BP 144/69 (BP Site: R Arm, BP Position: Sitting) Pulse 85 Temp 36.7 ??C (98.1 ??F) (Tympanic) Resp 20 Ht 147.3 cm (4' 10) Wt 97 kg (213 lb 13.5 oz) SpO2 98% BMI 44.69 kg/m?? Subjective: Patient ID: Linh Carvalho is a 24 y.o. female. Linh Carvalho is a 24 y/o F with PMH of asthma, hypothyroidism, migraines who presented to the with concerns for a possible infected ant bite to her left foot. She reports she was bitten byan ant yesterday and it was mildly swollen/red and she priya a line and then it has extended past ittoday. She reports this has never happened before with ant bites and usually they are much smaller.She denies itching and reports this is mostly pain. The following portions of the patient's history were reviewed and updated as appropriate: allergies, current medications, past family history, past medical history, past social history, past surgicalhistory and problem list. Review of Systems Skin: Positive for wound. All other systems reviewed and are negative. Objective: Physical Exam Vitals signs and nursing note reviewed. Constitutional: General: She is not in acute distress. Appearance: Normal appearance. She is normal weight. She is not ill-appearing or toxic-appearing. HENT: Head: Normocephalic and atraumatic. Eyes: Conjunctiva/sclera: Conjunctivae normal. Neck: Musculoskeletal: Normal range of motion. Cardiovascular: Rate and Rhythm: Normal rate. Pulmonary: Effort: Pulmonary effort is normal. Musculoskeletal: Normal range of motion. Skin: Comments: Left dorsal foot with erythema, mild swelling and warmth to touch. DP pulses 2+, NV intact. Full ROM. Neurological: General: No focal deficit present. Mental Status: She is alert and oriented to person, place, and time. Mental status is at baseline. documented in this encounter Plan of Treatment Not on file documented as of this encounter Visit Diagnoses Diagnosis Cellulitis of left lower extremity- Primary documented in this encounter Care Teams Employee Communications Manager Relationship Specialty Start Date End Date Julito Mayo MD [address] [place] [id number] PCP - General Family Medicine 09/06/19 02/11/20 documented as of this encounter
--- OUTSIDE RECORDS SUMMARY | 2024-03-23 13:11 | XMS_ITS | Encounter Summary ---
Author Organization [facility] Address [address] [place] [id number] Care Team Providers Care Software Licensing Analyst Name Role Phone Toshia Heller MD Primary Care Provi [facility] Reason for Visit * Reason Onset Date Comments REFERRAL 08/22/2019 Encounter Details Date Type Department Care Team (Late st Contact Info) Description 08/22/2019 Telephone [facility] [address] [place] [address] ChelseaJulito MD [address] [place] [address] REFERRAL Social History Tobacco Use Types Packs/Day Years Used Date Smoking Tobacco: Never Smokeless Tobacco: Never Alcohol Use Standard Drinks/Week Comments No 0 (1 standard drink = 0.6 oz pur e alcohol) Comments No Sex and Gender Information Value Date Recorded Sex Assigned at Not on file Legal Sex Female 11:55 PM EST Gender Identity Not on file Sexual Orientation Not on file documented as of this encounter Progress Notes * Natty Boucher - 08/22/2019 3:13 PM EDT Linh called and she broke her left pinky toe on MondayAugust 15 and was seen at [facility] [address] on MondayAugust 18 The notes for this visit in in epic under the notes or encounters tabs They want her to follow up with Randy Yeager She will be seeing you on 09/06/19 for her first New patient visit She has prime and in order for her to be seen at [facility] she needs a authorizaiton Can you asist? documented in this encounter Plan of Treatment Not on file documented as of this encounter Visit Diagnoses Not on filedocumented in this encounter Care Teams Software Licensing Analyst Relationship Specialty Start Date End Date Toshia Heller MD PCP - General 03/13/14 09/05/19 documented as of this encounter
--- OUTSIDE RECORDS SUMMARY | 2024-03-23 13:11 | XMS_ITS | Encounter Summary ---
Author Organization [facility] Address [address] [place] [id number] Care Team Providers Care Water/Wastewater Project Engineer Name Role Phone Julito Mayo MD Primary Care Pro vider Encounter Details Date Type Department Care Team (Late st Contact Info) Description 10/04/2019 Abstract PENDING SALE TO [facility] FAMILY [facility]IC[facility] [address] [place] [address] Julito Mayo MD [address] [place], [place] [id number] Mild intermittent asthma with acute exacerbation; Allergic rhinitis, unspecified seasonality, unspecified trigger; Migraine without aura and without status migrainosus, not intractable; Acquired hypothyroidism; Gastroesophageal reflux disease, esophagitis presence not specified; Abdominal pain, unspecified abdominal location; Encounter for surveillance of contraceptive pills; Well woman exam Social History Tobacco Use Types Packs/Day Years [...] on file documented as of this encounter Plan of Treatment Not on file documented as of this encounter Procedures Procedure Name Priority Date/Time Associated Diagnosis Comments AMB REFERRAL TO GYNECOLOGY Routine 10/04/2019 Encounter for surveillance of contraceptive pills Well woman exam AMB REFERRAL TO NEUROLOGY Routine 07/19/2019 Migraine without aura and without status migrainosus, not intractable AMB REFERRAL TO IMMUNOLOGY Routine 07/17/2019 Mild intermittent asthma with acute exacerbation Allergic rhinitis, unspecified seasonality, unspecified trigger AMB REFERRAL TO ENDOCRINOLOGY Routine 05/31/2019 Acquired hypothyroidism AMB REFERRAL TO GASTROENTEROLOGY Routine 04/16/2019 Gastroesophageal reflux disease, esophagitis presence not specified Abdominal pain, unspecified abdominal location documented in this encounter Results * Ambulatory referral to Gynecology (10/04/2019) Natty Garrido - 10/04/2019 Unable to contact patient after numerous times Per PENDING SALE TO [facility] psychologist clinical at [facility] us Julito Mayo MD OUTPATIENT REFERR AL ORDERABLES Final Result * Ambulatory referral to Neurology (07/19/2019) us Julito Mayo MD OUTPATIENT REFERR AL ORDERABLES Final Result * Ambulatory referral to Immunology (07/17/2019) Natty Garrido - 07/17/2019 She is a patient of Dr Isabel Schroeder and was seen on 07/17/19 And needed a back dated authorization for that visit us Julito Mayo MD OUTPATIENT REFERR AL ORDERABLES Final Result * Ambulatory referral to Endocrinology (05/31/2019) Natty Garrido - 05/31/[address] Edie Oconnor on 05/31/19 at [place] Office notes are in care everywhere us Julito Mayo MD OUTPATIENT REFERR AL ORDERABLES Final Result * Ambulatory referral to Gastroenterology (04/16/2019) Natty Garrido - 04/16/2019 She was seen at [facility] and needed a back dated authorization from To cover her visit on 04/16/19 us Julito Mayo MD OUTPATIENT REFERR AL ORDERABLES Final Result documented in this encounter Visit Diagnoses Diagnosis Mild intermittent asthma with acute exacerbation Allergic rhinitis, unspecified seasonality, unspecified trigger Migraine without aura and without status migrainosus, not intractable Acquired hypothyroidism Unspecified hypothyroidism Gastroesophageal reflux disease, esophagitis presence not specified Abdominal pain, unspecified abdominal location Encounter for surveillance of contraceptive pills Well woman exam Routine general medical examination at a health care facility documented in this encounter Care Teams Water/Wastewater Project Engineer Relationship Specialty Start Date End Date Julito Mayo MD [address] [place] [address] PCP - General Family Medicine 09/06/19 02/11/20 documented as of this encounter
--- OUTSIDE RECORDS SUMMARY | 2024-03-23 13:11 | XMS_ITS | Encounter Summary ---
Author Organization [facility] Address [address] [place] [id number] Care Team Providers Care Picture Framer Name Role Phone Julito Mayo MD Primary Care Pro vider Reason for Visit * Reason Comments Other Encounter Details Date Type Department Care Team (Late st Contact Info) Description 12/25/2019 Refill [facility]IC[facility] [place] [address] [place] [address] Julito Mayo MD [address] [place] [address] Social History Tobacco Use Types Packs/Day Years [...] as of this encounter Progress Notes * Michelle Webster CMA - 12/27/2019 7:23 AM EST My chart message sent to the patient. JE * Julito Mayo MD - 12/26/2019 4:28 PM EST 1 more rf sent See 09/04 HARVESTING SUPERVISOR referral for routine well woman care per pt request. See if you can give her that contact info if she is still planning to see them for checkups. Then they can manage OCPs. * Michelle Webster CMA - 12/26/2019 7:39 AM EST Last well women exam was 09-05-19 documented in this encounter Plan of Treatment Not on file documented as of this encounter Visit Diagnoses Not on filedocumented in this encounter Care Teams Picture Framer Relationship Specialty Start Date End Date Julito Mayo MD [address] [place] [id number] PCP - General Family Medicine 09/06/19 02/11/20 documented as of this encounter
--- OUTSIDE RECORDS SUMMARY | 2024-03-23 13:11 | XMS_ITS | Encounter Summary ---
Author Organization [facility] Address [address] [place] [address] Care Team Providers Care Marshmallow Machine Operator Name Role Phone Toshia Heller MD Primary Care Provi [facility] Reason for Visit * Auth/Cert Specialty Diagnoses / Procedures Referred By Contac t Referred To Contact Diagnoses RIGHT UPPER QUADRANT PAIN Procedures IA LAP,CHOLECYSTECTOMY LAPAROSCOPIC CHOLECYSTECTOMY Referral ID Status Reason Start Date Expiration Date Visits Re quested Visits Authorized [id number] 1 1 Encounter Details Date Type Department Care Team (Late st Contact Info) Description 06/15/2017 8:00 AM EDT - 06/15/2017 10:00 AM EDT Surgery [facility] [address] [place] [id number] New Felton MD [address] [facility] [place] [address] LAPAROSCOPIC CHOLECYSTECTOMY Social History Tobacco Use Types Packs/Day Years [...] Sign Reading Time Taken Comments Blood Pressure 111/55 06/15/2017 10:00 AM EDT Pulse 91 06/15/2017 10:00 AM EDT Temperature 36.8 ??C (98.2 ??F) 06/15/2017 10:00 AM E DT Respiratory Rate 17 06/15/2017 10:00 AM EDT Oxygen Saturation 98% 06/15/2017 10:00 AM EDT Inhaled Oxygen Concentration - - Weight 79.5 kg (175 lb 3.2 oz) 06/15/2017 6:42 A M EDT Height 147.3 cm (4' 10) 06/15/2017 6:42 AM EDT Body Mass Index 36.62 06/15/2017 6:42 AM EDT documented in this encounter Discharge Instructions * Patient Instructions* Keiry Cortez RN - 06/13/2017 10:57 AM EDT Pt instructed to arrive 2 hours prior to surgery unless otherwise instructed by surgeon's office. Pt instructed to remove all jewelry and nail bengali prior to surgery. Per NPO guidelines - pt instructed that they may have 12oz of clear liquids up to 3 hours prior to surgery. Pt instructed to have no food after midnight prior to surgery. Pt instructed to have a responsible adult drive them home and stay with them for 24 hours post-procedure. Pt instructed to bathe with an antibacterial soap prior to surgery. Pt instructed to have no alcohol or tobacco products 24 hours prior to surgery. Preop instructions reviewed with pt, verbalized understanding. * Medications* Tyler Gibson RN - 06/15/2017 10:58 AM EDT NO TYLENOL OR TYLENOL PRODUCTS UNTIL AFTER 6:30 PM 1 OXYCODONE GIVEN AT 10:30 AM * Discharge Instr - Other Orders* Tyler Gibson RN - 06/15/2017 10:55 AM EDT 1. If you have had sedation, you must have a responsible adult with you today and tonight. 2. You may feel tired and slightly weak following the procedure. Limit your activities for today. Rest at home for the remainder of the day and while taking prescription pain medications. If the patient is a child you should watch the child closely to prevent accidents. They may be slower to react and their sense of balance may be off. 3. Eat a light diet (soups, jello, ect.). Advance gradually to your your regular diet,unless otherwise Instructed by your doctor. 4. Drink plenty of fluids. Pain medications can cause constipation. Use Milk of Magnesia or Laxative of your choice if needed. 5. Take pain medication as directed to stay comfortable and heal more quickly. You may resume your normal prescription medications, unless otherwise instructed by your doctor. 6. You may experience swelling or bruising around the surgical site. You may also experience some bleeding or drainage from the incision. documented in this encounter Medications at Time of Discharge B2-mag cit & ox-feverfew (MIGRELIEF) 200-180-50 mg Tab Take 1 tablet by mouth Two (2) times a day. docusate sodium (COLACE) 50 MG capsule Take by mouth Two (2) times a day. fluticasone-jd nterol (BREO ELLIPTA) 100-25 mcg/dose inhaler Inhale 1 puff nightly. lamoTRIgine (LAMICTAL) 25 MG tablet Take 100 mg by mouth daily. melatonin 3 mg Tab Take 6 mg by mouth nightly. multivitamin (MULTIVITAMIN) per tablet Take 1 tablet by mouth daily. propranolol (INDERAL LA) 80 mg 24 hr capsule Take 80 mg by mouth daily. migraines thyroid, pork, (ARMOUR THYROID) 180 mg Tab Take by mouth nightly. traZODone (DESYREL) 50 MG tablet Take 50 mg by mouth nightly. melatonin 5 mg Tab Take 6 mg by mouth nightly. 0 norethindrone-et hinyl estradiol (JUNEL 02/25, ,) 1-20 mg-mcg per tablet Take 1 tablet by mouth daily. 0 vortioxetine (TRINTELLIX) 10 mg tablet Take 15 mg by mouth nightly. 0 documented as of this encounter H&P Notes * New Felton MD - 06/15/2017 7:49 AM EDT History and Physical Assessment/Plan: Recurring Right upper abdominal pain with progressive nausea. U/S of GB negative with poor EF. Planlaparoscopic cholecystectomy. History of Present Illness: Chief Complaint: Recurring RUQ pain. The patient describes his symptoms as abdominal pain. Onset of symptoms was gradual starting 3 months ago. The symptoms are located in the right upper quandrant. The patient describes the symptoms assharp and aching. The symptoms are intermittent and post prandial. The symptoms radiate to the R chest and R flank. The patient rates the symptoms as moderate. Allergies Sulfa (sulfonamide antibiotics) and Cephalosporins Medications Current Facility-Administered Medications Medication Dose Route Frequency Provider Last Rate Last Dose ??? cefazolin 2 g in 100 mL D5W (premix) 2 g Intravenous Once New Felton MD ??? lactated Ringers infusion 20 mL/hr Intravenous Continuous Benigno Hull, DO 20 mL/hrat 06/15/17 0735 20 mL/hr at 06/15/17 0735 ??? lidocaine (PF) (XYLOCAINE-MPF) 10 mg/mL (1 %) injection 0.2 mL 0.2 mL Intradermal Q 1 min PRN Benigno Hull, DO 0.2 mL at 06/15/17 0720 ??? scopolamine (TRANSDERM-SCOP) 1 mg over 3 days topical patch 1.5 mg 1 patch Topical Q72H Sunita Pulido MD 1.5 mg at 06/15/17 0719 Past Medical History Past Medical History: Diagnosis Date ??? Acid reflux ??? ADHD (attention deficit hyperactivity disorder) ??? Anemia ??? Anxiety ??? Depression ??? History of MRSA infection 2013 left leg ??? Hypothyroidism, juvenile ??? IgA deficiency (CMS-HCC) ??? Low ferritin ??? Migraines ??? Obesity Past Surgical History Past Surgical History: Procedure Laterality Date ??? KNEE ARTHROSCOPY Bilateral ??? TONSILLECTOMY AND ADENOIDECTOMY ??? TYMPANOSTOMY TUBE PLACEMENT Bilateral Family History The patient's family history is not on file.. Social History: Tobacco use: denies Alcohol use: denies Drug use: denies Review of Systems A 12 system review of systems was negative except as noted in HPI Objective: Vital Signs Temp: [37.1 ??C (98.7 ??F)] 37.1 ??C (98.7 ??F) Heart Rate: [80] 80 Resp: [16] 16 BP: (112)/(68) 112/68 SpO2: [98 %] 98 % BMI (Calculated): [36.6] 36.6 No intake or output data in the 24 hours ending 06/15/17 0750 Physical Exam General Appearance: No acute distress, well appearing and well nourished. Head: Normocephalic, atraumatic. Eyes: Conjuctiva and lids appear normal. Pupils equal and round, sclera anicteric. Ears: Overall appearance normal with no scars, lesions or masses. Hearing is grossly normal. Nose: Nares grossly normal, no drainage. Throat: Lips, mucosa, and tongue normal; teeth and gums normal. Neck: Supple, symmetrical, trachea midline, no adenopathy; thyroid: no enlargement/tenderness/nodules. Pulmonary: Normal respiratory effort. Lungs were clear to auscultation bilaterally. Cardiovascular: Regular rate and rhythm, no murmur noted. No thrill noted. Abdomen: Soft, non-tender, without masses. No hepatosplenomegaly. No hernias appreciated. Musculoskeletal: Normal gait. Extremities without clubbing, cyanosis, or edema. Skin: Skin color, texture, turgor normal, no rashes or lesions. Neurologic: No motor abnormalities noted. Sensation grossly intact. Psychiatric: Judgement and insight appropriate. Oriented to person, place, and time. Test Results All lab results last 24 hours: Recent Results (from the past 24 hour(s)) Qualitative, Urine Collection Time: 06/15/17 6:56 AM Result Value Ref Range Test, Urine Negative Negative Imaging: Radiology studies were personally reviewed Problem List: Active Problems: * No active hospital problems. * documented in this encounter OR Notes * Op Note - New Felton MD - 06/15/2017 9:12 AM EDT 10/30/14 0000 Expand All Collapse All Linh Carvalho [phone] Operative Note (CSN: [id number]) Date of Surgery: 06/15/2017 Pre-op Diagnosis: RIGHT UPPER QUADRANT PAIN Post-op Diagnosis: same LAPAROSCOPIC CHOLECYSTECTOMY Performing Service: General Surgery Surgeon(s) and Role: * New Felton MD - Primary * ASHLEY Yancey - assist Anesthesia: General Estimated Blood Loss: minimal Complications: None Specimens: gallbladder Procedure Note: The patient was brought to the operating room and placed in the supine position. General anesthesiawas obtained with orotracheal intubation. The abdomen was sterilely prepped and draped. A linear incision was made in the superior fold of the umbilicus through which a Veress needle was introduced in the abdominal cavity as confirmed by saline drop test. Pneumoperitoneum obtained with carbon dioxide. A 5 mm Optiview trocar was introduced under direct visualization. Pneumoperitoneum preserved. A 5 mm trocar introduced in the epigastric area followed by two 2 mm percutaneous graspers introduced in the right subcostal area. The gallbladder was elevated. The peritoneum at the base of the gallblad padma scored by use of the Harmonic scalpel. The cystic duct was then isolated circumferentially as was the cystic artery. The cystic artery divided at several of its branch points along the base of the gallbladder by use of the Harmonic scalpel. A retrograde dissection of the gallbladder then performed with the use of the Harmonic scalpel resulting in excellent hemostasis as the gallbladder was free. The cystic duct then further isolated as the dissection was directed towards the common bile duct. 2 Hem-o-janis clips were then used to ligate the cystic duct near its junction with the common bileduct. The cystic duct was transected and the gallbladder was brought up to the epigastric wound where its contents were cleared by aspiration followed by retrieval of the gallbladder. The liver bed was inspected for hemostasis and found to be adequate. Pneumoperitoneum relieved and wounds injected with local anesthetic. Wounds closed with 4.0 Monocryl to the dermis and covered with Dermabond. He was allowed to recover from anesthesia having tolerated the procedure well. New Felton M.D. * Pre-Procedure Instructions - Keiry Cortez RN - 06/13/2017 10:57 AM EDT EKG - none. Pt given information on how to access the Preparing for Surgery video and preoperative patient handout. documented in this encounter Plan of Treatment Not on file documented as of this encounter Procedures Procedure Name Priority Date/Time Associated Diagnosis Comments SURGICAL PATHOLOGY EXAM Timed 06/15/2017 9:00 AM EDT LAPAROSCOPY, SURGICAL; CHOLECYSTECTOMY 06/15/2017 8:00 AM EDT RIGHT UPPER QUADRANT PAIN Case Notes /CPT 55104 / PRE-CALL / CASE MOVED UP TO 0800 WITH JONATHAN 4/16 [facility] Special Needs /CPT 17560 / PRE-CALL / CASE MOVED UP TO 0800 WITH JONATHAN 4/16 [facility] , URINE STAT 06/15/2017 6:56 AM EDT documented in this encounter Results * Surgical pathology exam (06/15/2017 9:00 AM EDT) Case Report Surgical Pathology Report ? Case: [id number] ? Authorizing Provider: ??New Felton MD ??Collected: ? 06/15/2017 0900 ? Ordering Location: ? [facility] ? Received: ?06/15/2017 0929 ? Pathologist: ? Violet Harley MD ? Specimen: ?Gallbladder, GALLBLADDER ? 06/16/2017 8:40 AM EDT [facility] Diagnosis Gallbladder, excision: -Cholesterolos is and mild chronic cholecystitis. 06/16/2017 8:40 AM EDT [facility] at 0840 EDT Clinical History Pre-op diagnosis: RIGHT UPPER QUADRANT PAIN 06/16/2017 8:40 AM EDT [facility] Gross Description Label: Gallbladder. Received: Focally disrupted. Measurements: 5.7 x 2.6 x 1.5 cm. External surface: pink-prescott, smooth, glistening. Luminal Contents: Green viscous bile. Stones: Absent. Mucosa: [place]-prescott prescott with diffuse yellow stippling. Wall thickness: 0.2 cm. Other findings: None. Rep, 1. 06/16/2017 8:40 AM EDT [facility] Microscopic Description Microscopic examination performed. 06/16/2017 8:40 AM EDT [facility] EMBEDDED IMAGES 06/16/2017 8:40 AM EDT [facility] Tissue GALLBLADDER STRUCTURE / Unknown 06/15/2017 9:00 AM EDT 06/15/2017 9:29 AM EDT Comment:Pre-op diagnosis: RIGHT UPPER QUADRANT PAIN New Felton MD PATHOLOGY/CYTOLOGY ORDE ALPHONSO Final Result Performing Organization Address [facility] de Phone Number [facility] [address] [place] [address] * Qualitative, Urine (06/15/2017 6:56 AM EDT) Test, Urine Negative Negative 06/15/2017 7:13 AM EDT [facility] Urine Collection / Unknown 06/15/2017 6:56 AM EDT 06/15/2017 7:00 AM EDT New Felton MD URINE ORDERABLES Final Result Performing Organization Address [facility]/State/ZIP Co de Phone Number TUSHAR FEL[facility] [address] [facility] [place] [address] documented in this encounter Visit Diagnoses Not on filedocumented in this encounter Administered Medications Inactive Administered Medications - up to 3 most recent administrations Medication Order MAR Action Action Date Dose Rate Site acetaminophen (TYLENOL) tablet 975 mg 975 mg, Oral, Once as needed, other, For ALL pain levels, Starting on Cheri 06/15/17 at 0911, For 1 dose, PACU (only), Use as 1st choice. (PACU LEVEL II). May administer acetaminophen if NOT given within the last 4 hrs. Discontinue 6 hours post-op. ADULT MAX: NOT TO EXCEED 4GM ACETAMINOPHEN IN 24HRS, Routine Given 06/15/2017 10:40 AM EDT 975 mg bupivacaine-epinephrine (PF) (MARCAINE-PF w/EPI) 0.25 %-1:200,000 injection (PF) As needed (once a day), Starting on Cheri 06/15/17 at 0859, Intra-op, Routine Given 06/15/2017 8:59 AM EDT 20 mL Abdominal Tissue fentaNYL (PF) (SUBLIMAZE) injection 25 mcg 25 mcg, Intravenous, Every 5 min PRN, other, pain scale score > 4, Starting on Cheri 06/15/17 at 0911, For 4 doses, PACU (only), (PACU LEVEL 1) Up to a total dose 100 mcg MAX. Call anesthesiologist if pain not controlled. Concentration = 50 mcg/mL., Routine Given 06/15/2017 9:41 AM EDT 25 mcg Given 06/15/2017 9:35 AM EDT 25 mcg Given 06/15/2017 9:30 AM EDT 25 mcg HYDROmorphone (PF) (DILAUDID) injection 0.2 mg 0.2 mg, Intravenous, Every 5 min PRN, other, Pain scale score >4, Starting on Cheri 06/15/17 at 0911, For 10 doses, PACU (only), (PACU LEVEL I) Up to a total dose of 2 mg MAX. ONLY administer HYDROmorphone if pain level remains >4 after MAX dose of fentanyl is reached or if allergic to fentanyl. Call Anesthesiologist if pain not controlled or patient is allergic to HYDROmorphone. Concentration = 1 mg/mL, Routine lactated Ringers infusion 20 mL/hr, Intravenous, Continuous, Starting on Cheri 06/15/17 at 0800, Pre-op (day of surgery), KVO; All other patients receive LR except for those meeting criteria 1-4 in Peripheral IV Therapy Protocol., Routine Rate/Dose Verify 06/15/2017 10:25 AM EDT 80 mL/hr 80 mL/hr Rate/Dose Change 06/15/2017 9:15 AM EDT 80 mL/hr 80 mL/h r New Bag 06/15/2017 7:35 AM EDT 20 mL/hr 20 mL/hr lidocaine (PF) (XYLOCAINE-MPF) 10 mg/mL (1 %) injection 0.2 mL 0.2 mL, Intradermal, Every 1 minute PRN, intradermal wheal, Starting on Cheri 06/15/17 at 0703, For 2 doses, Pre-op (day of surgery), An intradermal wheal of 0.05 mL to 0.2 mL is made near the IV insertion site by using 25 or 30 gauge needles. (Not to exceed to 0.2 mL) Limit 2 attempts., Routine Given 06/15/2017 7:20 AM EDT 0.2 mL meperidine (DEMEROL) injection 12.5 mg 12.5 mg, Intravenous, Every 10 min PRN, shivering, Starting on Cheri 06/15/17 at 0911, For 2 doses, PACU (only), (PACU LEVEL I) Until a maximum dose of 25mg is reached or shivering is relieved. Discontinue 4 hours post-op., Routine ondansetron (ZOFRAN) injection 4 mg 4 mg, Intravenous, Once as needed, nausea, vomiting, Starting on Cheri 06/15/17 at 0911, For 1 dose, PACU (only), (PACU LEVEL I & II) Do NOT exceed maximum dose of 8 mg in 6 hours. Discontinue 4 hours post-op., Routine oxyCODONE (ROXICODONE) immediate release tablet 5 mg 5 mg, Oral, Every 30 min PRN, other, pain scale >/=4, Starting on Cheri 06/15/17 at 0911, For 2 doses, PACU (only), (PACU LEVEL II) If acetaminophen given within the last 4 hrs, may administer oxycodone for pain scale GREATER than or EQUAL to 4. May repeat dose in 30 min if pain unrelieved or pain scale remains GREATER than or EQUAL to 4. Discontinue 6 hours post-op., Routine Given 06/15/2017 10:40 AM EDT 5 mg oxyCODONE-acetaminophen (PERCOCET) 5-325 mg tablet 1 tablet 1 tablet, Oral, Every 30 min PRN, other, pain scale >/= 4, Starting on Cheri 06/15/17 at 0911, For 2 doses, PACU (only), (PACU LEVEL II) If acetaminophen NOT given within last 4 hours, may administer for pain GREATER than or EQUAL to 4. May repeat dose in 30 min if pain unrelieved or pain scale remains GREATER than or EQUAL to 4. Discontinue 6 hours post-op. ADULT MAX: NOT TO EXCEED 4GM ACETAMINOPHEN IN 24HRS, Routine promethazine (PHENERGAN) injection 25 mg 25 mg, Intramuscular, Once as needed, nausea, vomiting, Starting on Cheri 06/15/17 at 0911, For 1 dose, PACU (only), (PACU LEVEL ll) Administer promethazine if no relief from ondansetron after 15 min OR if ondansetron has been given within the previous 8 hours. Discontinue 6 hours post-op., Routine scopolamine (TRANSDERM-SCOP) 1 mg over 3 days topical patch 1.5 mg 1.5 mg (1 patch), Topical, Administer over 72 Hours, Every 72 hours, First dose on Cheri 06/15/17 at 0800, Pre-op (day of surgery), Apply patch to hairless area of skin behind the ear. Do NOT cut. Patch Applied 06/15/2017 7:19 AM EDT 1.5 mg Behind Left Ear documented in this encounter Active and Recently Administered Medications Times are shown in EDT. Scheduled Medication Order 06/13/2017 06/14/2017 06/15/2017 scopolamine (TRANSDERM-SCOP) 1 mg over 3 days topical patch 1.5 mg 1.5 mg (1 patch), Topical, Administer over 72 Hours, Every 72 hours, First dose on Cheri 06/15/17 at 0800, Pre-op (day of surgery), Apply patch to hairless area of skin behind the ear. Do NOT cut. 0719 (Patch Applied - Provider: Ayse Mooney RN) Continuous Medication Order 06/13/2017 06/14/2017 06/15/2017 lactated Ringers infusion 20 mL/hr, Intravenous, Continuous, Starting on Cheri 06/15/17 at 0800, Pre-op (day of surgery), KVO; All other patients receive LR except for those meeting criteria 1-4 in Peripheral IV Therapy Protocol., Routine 0735 (New Bag - Prov ider: Ayse Mooney RN)0907 (Anesthesia Volume Adjustment - Provider: RICHELLE Velasco)0915 (Rate/Dose Change - Provider: Louise Bailey RN)1025 (Rate/Dose Verify - Provider: Tyler Gibson RN) PRN Medication Order 06/13/2017 06/14/2017 06/15/2017 acetaminophen (TYLENOL) tablet 975 mg (COMPLETED) 975 mg, Oral, Once as needed, other, For ALL pain levels, Starting on Cheri 06/15/17 at 0911, For 1 dose, PACU (only), Use as 1st choice. (PACU LEVEL II). May administer acetaminophen if NOT given within the last 4 hrs. Discontinue 6 hours post-op. ADULT MAX: NOT TO EXCEED 4GM ACETAMINOPHEN IN 24HRS, Routine 1040 (Given - Provid er: Tyler Gibson RN) bupivacaine-epinephrine (PF) (MARCAINE-PF w/EPI) 0.25 %-1:200,000 injection (PF) (CANCELED) As needed (once a day), Starting on Cheri 06/15/17 at 0859, Intra-op, Routine 0859 (Given - Provid er: New Felton MD) fentaNYL (PF) (SUBLIMAZE) injection 25 mcg (COMPLETED) 25 mcg, Intravenous, Every 5 min PRN, other, pain scale score > 4, Starting on Cheri 06/15/17 at 0911, For 4 doses, PACU (only), (PACU LEVEL 1) Up to a total dose 100 mcg MAX. Call anesthesiologist if pain not controlled. Concentration = 50 mcg/mL., Routine 0925 (Given - Provid er: Louise Bailey RN)0930 (Given - Provider: Louise Bailey RN)0935 (Given - Provider: Louise Bailey RN)0941 (Given - Provider: Louise Bailey RN) HYDROmorphone (PF) (DILAUDID) injection 0.2 mg 0.2 mg, Intravenous, Every 5 min PRN, other, Pain scale score >4, Starting on Cheri 06/15/17 at 0911, For 10 doses, PACU (only), (PACU LEVEL I) Up to a total dose of 2 mg MAX. ONLY administer HYDROmorphone if pain level remains >4 after MAX dose of fentanyl is reached or if allergic to fentanyl. Call Anesthesiologist if pain not controlled or patient is allergic to HYDROmorphone. Concentration = 1 mg/mL, Routine lidocaine (PF) (XYLOCAINE-MPF) 10 mg/mL (1 %) injection 0.2 mL 0.2 mL, Intradermal, Every 1 minute PRN, intradermal wheal, Starting on Cheri 06/15/17 at 0703, For 2 doses, Pre-op (day of surgery), An intradermal wheal of 0.05 mL to 0.2 mL is made near the IV insertion site by using 25 or 30 gauge needles. (Not to exceed to 0.2 mL) Limit 2 attempts., Routine 07 (Given - Provid er: Ayse Mooney RN) meperidine (DEMEROL) injection 12.5 mg 12.5 mg, Intravenous, Every 10 min PRN, shivering, Starting on Cheri 06/15/17 at 0911, For 2 doses, PACU (only), (PACU LEVEL I) Until a maximum dose of 25mg is reached or shivering is relieved. Discontinue 4 hours post-op., Routine ondansetron (ZOFRAN) injection 4 mg 4 mg, Intravenous, Once as needed, nausea, vomiting, Starting on Cheri 06/15/17 at 0911, For 1 dose, PACU (only), (PACU LEVEL I & II) Do NOT exceed maximum dose of 8 mg in 6 hours. Discontinue 4 hours post-op., Routine oxyCODONE (ROXICODONE) immediate release tablet 5 mg 5 mg, Oral, Every 30 min PRN, other, pain scale >/=4, Starting on Cheri 06/15/17 at 0911, For 2 doses, PACU (only), (PACU LEVEL II) If acetaminophen given within the last 4 hrs, may administer oxycodone for pain scale GREATER than or EQUAL to 4. May repeat dose in 30 min if pain unrelieved or pain scale remains GREATER than or EQUAL to 4. Discontinue 6 hours post-op., Routine 1040 (Given - Provid er: Tyler Gibson RN) oxyCODONE-acetaminophen (PERCOCET) 5-325 mg tablet 1 tablet 1 tablet, Oral, Every 30 min PRN, other, pain scale >/= 4, Starting on Cheri 06/15/17 at 0911, For 2 doses, PACU (only), (PACU LEVEL II) If acetaminophen NOT given within last 4 hours, may administer for pain GREATER than or EQUAL to 4. May repeat dose in 30 min if pain unrelieved or pain scale remains GREATER than or EQUAL to 4. Discontinue 6 hours post-op. ADULT MAX: NOT TO EXCEED 4GM ACETAMINOPHEN IN 24HRS, Routine promethazine (PHENERGAN) injection 25 mg 25 mg, Intramuscular, Once as needed, nausea, vomiting, Starting on Cheri 06/15/17 at 0911, For 1 dose, PACU (only), (PACU LEVEL ll) Administer promethazine if no relief from ondansetron after 15 min OR if ondansetron has been given within the previous 8 hours. Discontinue 6 hours post-op., Routine documented in this encounter Care Teams Marshmallow Machine Operator Relationship Specialty Start Date End Date Toshia Heller MD PCP - General 03/13/14 09/05/19 documented as of this encounter
--- OUTSIDE RECORDS SUMMARY | 2024-03-23 13:11 | XMS_ITS | Encounter Summary ---
Author Organization [facility] Health Care Address [address] [place] [address] Care Team Providers Care Nylon Machine Operator Name Role Phone Toshia Heller MD Primary Care Provi [facility] Reason for Referral * Diagnostic Imaging (Routine) - Closed Specialty Diagnoses / Procedures Referred By Contac t Referred To Contact Diagnoses Injury of right foot, initial encounter Procedures XR Foot 3 Or More Views Left Janis Khan PA [address] [place] [address] Phone: tel: fax: Referral ID Status Reason Start Date Expiration Date Visits Re quested Visits Authorized [id number] Closed 08/19/2019 08/18/2020 1 1 Reason for Visit * Reason Comments Toe Injury Patient states she w as playing/running with her dogs in the middle of the night Monday night of last week. She states the dog stepped on her left pinkey toe, causing her pain. Mild redness, swelling and bruising noted to the area. Encounter Details Date Type Department Care Team (Late st Contact Info) Description 08/19/2019 1:10 PM EDT Office Visit [facility] [address] [facility] [place] [address] [place] [address] Janis Khan PA [address] [facility] [address] [place], [place] [id number] Closed fracture of phalanx of left fifth toe, initial encounter (Primary Dx); Injury of right foot, initial encounter Social History Tobacco Use Types Packs/Day Years [...] Sign Reading Time Taken Comments Blood Pressure 121/67 08/19/2019 1:25 PM EDT Pulse 69 08/19/2019 1:25 PM EDT Temperature 36.9 ??C (98.4 ??F) 08/19/2019 1:25 PM ED T Respiratory Rate 16 08/19/2019 1:25 PM EDT Oxygen Saturation 98% 08/19/2019 1:25 PM EDT Inhaled Oxygen Concentration - - Weight 97.9 kg (215 lb 13.3 oz) 08/19/2019 1:25 PM EDT Height 147.3 cm (4' 10) 08/19/2019 1:25 PM EDT Body Mass Index 45.11 08/19/2019 1:25 PM EDT documented in this encounter Patient Instructions * Patient Instructions* Janis Khan PA - 08/19/2019 1:10 PM EDT Images from the original note were not included. You were seen today for left toe pain after and injury. Your xray today revealed you have a fracture to your pinky toe. We recommend you wear the post op shoe given as well as using crutches for comfort. We have provided you with a disc of your xray and recommend following up with orthopedics within the week. Continue resting, icing and elevating the foot to help with pain and swelling. We also re commend using tylenol for pain control. If you develop any new or worsening symptoms such as increased pain, numbness, tingling, swelling, warmth or fever go immediately to the emergency room for further evaluation. Patient Education Broken Toe: Care Instructions Your Care Instructions You have broken (fractured) a bone in your toe. This kind of fracture does not need a special cast or brace. Emmanuel-taping your broken toe to a healthy toe next to it is almost always enough to treat the problem and ease symptoms. The toe may take 4 weeks or more to heal. You heal best when you take good care of yourself. Eat a variety of healthy foods, and don't smoke. Follow-up care is a marie part of your treatment and safety. Be sure to make and go to all appointments, and call your doctor if you are having problems. It's also a good idea to know your test resultsand keep a list of the medicines you take. How can you care for yourself at home? ?? Be safe with medicines. Take pain medicines exactly as directed. ? If the doctor gave you a prescription medicine for pain, take it as prescribed. ? If you are not taking a prescription pain medicine, ask your doctor if you can take an [id number]-[id number] medicine. ?? If your toe is taped to the toe next to it, your doctor has shown you how to change the tape. Protect the skin by putting something soft, such as felt or foam, between your toes before you tape them together. Never tape the toes together [id number]. Your broken toe may need to be emmanuel-taped for 2 to 4 weeks to heal. ?? Rest and protect your toe. Do not walk on it until you can do so without too much pain. If the doctor has told you to use crutches, use them as instructed. ?? Put ice or a cold pack on your toe for 10 to 20 minutes at a time. Try to do this every 1 to 2 hours for the next 3 days (when you are awake) or until the swelling goes down. Put a thin cloth between the ice and your skin. ?? Prop up your foot on a pillow when you ice it or anytime you sit or lie down. Try to keep it above the level of your heart. This will help reduce swelling. ?? Make sure you go to your follow-up appointments. Your doctor will need to check that your toe ishealing right. When should you call for help? Call your doctor now or seek immediate medical care if: ?? You have severe pain. ?? Your toe is cool or pale or changes color. ?? You have tingling, weakness, or numbness in your toe. Watch closely for changes in your health, and be sure to contact your doctor if: ?? Pain and swelling get worse. ?? You are not getting better as expected. Where can you learn more? Go to [facility] at https://[facility].org [employer] under the Resources menu. Enter W408 in the search box to learn more about Broken Toe: Care Instructions. Current as of: April 08, 2019?Content Version: 12.5 ?? 7239-1400 [employer]. Care instructions adapted under license by [facility]. If you have questions about a medical condition or this instruction, always ask your healthcare professional. [employer] disclaims any warranty or liability for your use of this information. ORTHOPAEDIC PROVIDERS [facility] URGENT CARE AT [facility] These practices are members of the [facility] Health and Senior alliance network [facility] ORTH[facility]EDICS AT [facility] [address] [place] [address], [address], [address], [place] [phone] URGENT CARE Monday - Monday 8a - 8p [facility] [phone] [place] [address], [address], [address], [place] [address] [facility], [address], [place] [address] [place] [address] [place] [address], [address], [place] [address] [facility] URGENT CARE [place] location M-F 8a-8pm, Sat 9-2 pm [place] location Mon-Mon 8:00-4:00pm [facility] [address] [facility], [address] [place] [phone] [facility] [address] [facility], [address], [place] [address] [address] [facility], [address], [place] [address] URGENT CARE Hours 7 days/wk, 9:00 AM to 9:00 PM [address] [facility], [address], [place] [address] URGENT CARE Hours 7 days/wk, 9:00 to 9:00 PM [facility] ( formerly known as [facility]) [facility] operates numerous office locations, dispersed throughout multiple [facility] and [facility]. Each location, staffed with board-certified physicians and professional medical staff, offers comprehensive orthopaedic care including imaging services, rehabilitation and pain management. Ten locations feature urgent care clinics, also known as [facility] centers. Please check their website @ [email or web address] for all locations, urgent care centers and hours of operation. 02/2019 documented in this encounter Progress Notes * Janis Khan PA - 08/19/2019 1:10 PM EDT [facility] Urgent Care Provider Note Clinical Impression Final diagnoses: Closed fracture of phalanx of left fifth toe, initial encounter (Primary) Injury of right foot, initial encounter Initial Impression, Course, Assessment and Plan 23 y.o. female with a PMH of acid reflux, ADHD, anemia, anxiety, depression, MRSA, hypothyroidism, IgA deficiency, migraines presenting to the for left fifth digit pain x1 week. Upon exam, patient appears nontoxic and in NAD. TTP noted to proximal left 5th digit and lateral foot. Ecchymosis and swelling noted to affected area. Distal pulses intact. Cap refill <3 sec. Footstrength 5/5. Sensation intact. Decreased flexion and extension to fifth digit, otherwise normal ROM. Pain with weightbearing. Will obtain foot xray to assess for possible fracture. I personally reviewed xray which revealed Minimally displaced transversely oriented fracture through the proximal shaft of the fifth proximal phalanx. I discussed results with patient and plan to d/c with post op shoe, crutches and ortho follow up. Patient provided disc with xrays and is already followed at [facility]. I discussed rice protocol as well as strict return precautions. Patient expressed understanding and agreed to plan. Patient discharged in stable condition. FOLLOWING PPE WAS USED DURING THIS ENCOUNTER PATIENT: Linh Carvalho [] EXAM GLOVES, N95 MASK, FACE SHIELD [] EXAM GLOVES, N95 MASK, FACE SHIELD AND GOWN [] EXAM GLOVES, MAX AIR, AND GOWN [x] EXAM GLOVES, SURGICAL MASK, EYE PROTECTION [facility] No results found for this visit on 08/19/19. Radiology Xr Foot 3 Or More Views Left Result Date: 08/19/2019 Exam: Left Foot History: Pinky toe pain after injury. Technique: AP, oblique, and lateral views were obtained. Comparison: None. Findings: There is a minimally displaced transversely oriented fracture noted at the junction of the base and proximal shaft of the fifth proximal phalanx, without articular extension. There is associated mild soft tissue swelling. The remainder of the foot is unremarkable. Minimally displaced transversely oriented fracture through the proximal shaft of the fifth proximalphalanx. Signed (Electronic Signature): 08/19/2019 1:57 PM Signed By: Pasquale Olea MD History Chief Complaint Toe Injury (Patient states she was playing/running with her dogs in the middle of the night Monday night of last week. She states the dog stepped on her left pinkey toe, causing her pain. Mild redness, swelling and bruising noted to the area. ) HPI Patient was seen by me at 2:13 PM. Patient is a 23 y.o. female with a PMH of acid reflux, ADHD, anemia, anxiety, depression, MRSA, hypothyroidism, IgA deficiency, migraines presenting to the for left fifth digit pain x1 week. Patient states a week ago she was playing around with her dog when he collided with her left foot. She states since then she has had pain, swelling, and bruising to her lateral foot and fifth digit. She has pain with weightbearing. She has been taking Tylenol and Aleve without significant improvement. She denies any numbness, tingling, weakness, fever, shortness of breath, cough, or other physical complaints. She further denies any previous injury to this affected area. Previous chart, nursing notes, and vital signs reviewed. Pertinent labs & imaging results that were available during my care of the patient were reviewed by me and considered in my medical decision making (see chart for details). Past Medical History: Diagnosis Date ??? Acid reflux ??? ADHD (attention deficit hyperactivity disorder) ??? Anemia ??? Anxiety ??? Depression ??? History of MRSA infection 2013 left leg ??? Hypothyroidism, juvenile ??? IgA deficiency (CMS-HCC) ??? Low ferritin ??? Migraines ??? Obesity Past Surgical History: Procedure Laterality Date ??? KNEE ARTHROSCOPY Bilateral ??? WI LAP,CHOLECYSTECTOMY N/A 06/15/2017 Procedure: LAPAROSCOPIC CHOLECYSTECTOMY; Surgeon: New Felton MD; Location: [place]; Service: General Surgery ??? TONSILLECTOMY AND ADENOIDECTOMY ??? TYMPANOSTOMY TUBE PLACEMENT Bilateral Current Outpatient Medications: ??? escitalopram oxalate (LEXAPRO) 20 MG tablet, Take 20 mg by mouth daily., Disp: , Rfl: ??? levocetirizine (XYZAL) 5 MG tablet, Take 5 mg by mouth every evening., Disp: , Rfl: ??? montelukast (SINGULAIR) 10 mg tablet, Take 10 mg by mouth nightly., Disp: , Rfl: ??? propranoloL (INDERAL XL) 120 MG 24 hr capsule, Take 120 mg by mouth every morning., Disp: , Rfl: ? ? B2-mag cit & ox-feverfew (MIGRELIEF) 200-180-50 mg Tab, Take 1 tablet by mouth Two (2) times a day. , Disp: , Rfl: ??? docusate sodium (COLACE) 50 MG capsule, Take by mouth Two (2) times a day., Disp: , Rfl: ??? fluticasone-vilanterol (BREO ELLIPTA) 100-25 mcg/dose inhaler, Inhale 1 puff nightly., Disp: , Rfl: ??? lamoTRIgine (LAMICTAL) 25 MG tablet, Take 100 mg by mouth daily. , Disp: , Rfl: ??? melatonin 3 mg Tab, Take 6 mg by mouth nightly., Disp: , Rfl: ??? melatonin 5 mg Tab, Take 6 mg by mouth nightly. , Disp: , Rfl: ??? multivitamin (MULTIVITAMIN) per tablet, Take 1 tablet by mouth daily., Disp: , Rfl: ??? norethindrone-ethinyl estradiol (JUNEL 02/25, ,) 1-20 mg-mcg per tablet, Take 1 tablet by mouth daily., Disp: , Rfl: ??? propranolol (INDERAL LA) 80 mg 24 hr capsule, Take 80 mg by mouth daily. migraines , Disp: , Rfl: ??? thyroid, pork, (ARMOUR THYROID) 180 mg Tab, Take by mouth nightly., Disp: , Rfl: ??? traZODone (DESYREL) 50 MG tablet, Take 50 mg by mouth nightly., Disp: , Rfl: ??? vortioxetine (TRINTELLIX) 10 mg tablet, Take 15 mg by mouth nightly., Disp: , Rfl: Allergies Sulfa (sulfonamide antibiotics) and Cephalosporins History reviewed. No pertinent family history. Social History Social History Tobacco Use ??? Smoking status: Never Smoker ??? Smokeless tobacco: Never Used Substance Use Topics ??? Alcohol use: No ??? Drug use: No Review of Systems Review of Systems Constitutional: Negative for chills, fever and malaise/fatigue. HENT: Negative. Eyes: Negative. Respiratory: Negative for cough and shortness of breath. Cardiovascular: Negative for chest pain, palpitations and leg swelling. Gastrointestinal: Negative for nausea and vomiting. Musculoskeletal: Negative for myalgias. Positive for left foot pain. Skin: Negative for itching and rash. Neurological: Negative for dizziness, tingling, sensory change, speech change, focal weakness and headaches. All other systems reviewed and are negative. Physical Exam VITAL SIGNS: Vitals: 08/19/19 1325 BP: 121/67 BP Site: R Arm BP Position: Sitting BP Cuff Size: Medium Pulse: 69 Resp: 16 Temp: 36.9 ??C (98.4 ??F) TempSrc: Oral SpO2: 98% Weight: 97.9 kg (215 lb 13.3 oz) Height: 147.3 cm (4' 10) Physical Exam Constitutional: She is oriented to person, place, and time and well-developed, well-nourished, and in no distress. Vital signs are normal. HENT: Head: Normocephalic and atraumatic. Eyes: Conjunctivae and lids are normal. Neck: Normal range of motion present. Cardiovascular: Normal rate, regular rhythm, normal heart sounds and normal pulses. Pulmonary/Chest: Effort normal and breath sounds normal. No stridor. Musculoskeletal: Left foot: Decreased range of motion. Normal capillary refill. Tenderness, bony tenderness and swelling present. No deformity or laceration. Comments: TTP noted to proximal left 5th digit and lateral foot. Ecchymosis and swelling noted to affected area. Neurological: She is alert and oriented to person, place, and time. She has normal sensation and normal strength. GCS score is 15. Skin: Skin is warm and dry. Ecchymosis noted. Nursing note and vitals reviewed. documented in this encounter Plan of Treatment Not on file documented as of this encounter Results * XR Foot 3 Or More Views Left (08/19/2019 1:53 PM EDT) Anatomical Region Laterality Modality Foot Bilateral Radiographic Iveth ging 08/19/2019 1:56 PM EDT Impressions 08/19/2019 1:57 PM EDT Minimally displaced transversely oriented fracture through the proximal shaft of the fifth proximal phalanx. Signed (Electronic Signature): 08/19/2019 1:57 PM Signed By: Pasquale Olea MD Narrative 08/19/2019 1:57 PM EDT Exam: ??Left Foot History: ??Pinky toe pain after injury. Technique: ??AP, oblique, and lateral views were obtained. Comparison: ??None. Findings: ??There is a minimally displaced transversely oriented fracture noted at the junction of the base and proximal shaft of the fifth proximal phalanx, without articular extension. ?? There is associated mild soft tissue swelling. The remainder of the foot is unremarkable. Procedure Note Pasquale Olea MD - 08/19/2019 Exam: Left Foot History: Pinky toe pain after injury. Technique: AP, oblique, and lateral views were obtained. Comparison: None. Findings: There is a minimally displaced transversely oriented fracturenoted at the junction of the base and proximal shaft of the fifth proximalphalanx, without articular extension. There is associated mild softtissue swelling. The remainder of the foot is unremarkable. IMPRESSION: Minimally displaced transversely oriented fracture through the proximalshaft of the fifth proximal phalanx. Signed (Electronic Signature): 08/19/2019 1:57 PM Signed By: Pasquale Olea MD [facility] Final Result documented in this encounter Visit Diagnoses Diagnosis Closed fracture of phalanx of left fifth toe, initial encounter- Primary Injury of right foot, initial encounter Injury of right foot, initial encounter documented in this encounter Care Teams Nylon Machine Operator Relationship Specialty Start Date End Date Toshia Heller MD PCP - General 03/13/14 09/05/19 documented as of this encounter
--- OUTSIDE RECORDS SUMMARY | 2024-03-23 13:11 | XMS_ITS | Encounter Summary ---
Author Organization [facility] Address [address] [place] [address] Care Team Providers Care Dough Molder Hand Name Role Phone Mali Ascencio MD Primary Care Provider Reason for Visit * Reason Comments Cyst cyst to left axilla for past 3 days. Increasing in size over past three days. Encounter Details Date Type Department Care Team (Late st Contact Info) Description 02/12/2020 5:10 PM EST Office Visit [facility] [address] [place] [address] Silvana Lou, HARNESS BRUSHER [id number] [facility] [place] [address] Cellulitis of left axilla (Primary Dx) Social History Tobacco Use Types [...] Sign Reading Time Taken Comments Blood Pressure 122/74 02/12/2020 5:21 PM EST Pulse 87 02/12/2020 5:21 PM EST Temperature 37 ??C (98.6 ??F) 02/12/2020 5:21 PM EST Respiratory Rate 16 02/12/2020 5:21 PM EST Oxygen Saturation 98% 02/12/2020 5:21 PM EST Inhaled Oxygen Concentration - - Weight 95.3 kg (210 lb) 02/12/2020 5:21 PM EST Height 147.3 cm (4' 10) 02/12/2020 5:21 PM EST Body Mass Index 43.89 02/12/2020 5:21 PM EST documented in this encounter Patient Instructions * Patient Instructions* Silvana Lou FNP - 02/12/2020 5:10 PM EST You have been seen in the Urgent Care (UC) for your left armpit redness and tenderness. Your evaluation was generally reassuring. We will be sending you home with a prescription for doxycycline (an antibiotic), please take this medication as directed. Additionally, we recommend warm compresses withepsom salt and use of [id number] NSAIDs for pain and swelling. Please follow up with your Primary Care Provider as needed or within x1-2wks regarding today???s urgent care visit and the symptoms that are bothering you. Please go to the Emergency Department if your pain worsens or fails to improve, weakness/dizziness,severe headaches, nausea, vomiting, diarrhea, you are unable to tolerate fluids, fever greater [id number], or any other concerning signs or symptoms. documented in this encounter Progress Notes * Jyoti Hall RN - 02/12/2020 5:10 PM EST THE FOLLOWING PPE WAS USED DURING THIS ENCOUNTER PATIENT: Linh Carvalho [] EXAM GLOVES, N95 MASK, FACE SHIELD [] EXAM GLOVES, N95 MASK, FACE SHIELD AND GOWN [] EXAM GLOVES, N95 MASK, EYE PROTECTION AND GOWN [] EXAM GLOVES, MAX AIR, AND GOWN [] EXAM GLOVES, SURGICAL MASK AND EYE PROTECTION [] EXAM GLOVES, SURGICAL MASK [x] SURGICAL MASK, EYE PROTECTION Patient wearing mask. Jyoti Hall RN * Silvana Lou, HARNESS BRUSHER - 02/12/2020 5:10 PM EST [facility] Provider Note UC Clinical Impression Final diagnoses: Cellulitis of left axilla (Primary) UC HPI/Impression/Assessment/Plan and UC Course Patient was seen by me at 5:35 PM. Patient is a 24 y.o. female with a PMH of asthma, rhinitis, GERD, hypothyroidism, Raynaud's, ADD, depression, migraine, anxiety, obesity, anemia who presents to the with c/o left axilla pain, swelling, redness, and mass. Patient reports onset of symptoms was x3 days ago. She reports history of si milar symptoms and states that she has had 2 have the area of swelling drained previously. The patient reports area of redness has spread since onset. She states noticing pus from a central site of the area of swelling. Patient reports that she does shave her axillas regularly. She denies any fevers, numbness or tingling down her left arm, pain into her neck or shoulder. She states she was otherwise feeling well prior to the onset of the symptoms and denies any recent sick contacts. On exam, patient is well-appearing and in no acute distress. Notable area of induration is noted toher left upper and lateral axilla. TTP to the affected site. Very minimal fluctuance (>1cm) is appreciated and a central area of eruption is noted. A small amount of pus is noted with applied gentle pressure to the central site. Area of redness with warmth to touch surrounding affected area spans 4-5 cm. Demonstrates FROM of left shoulder. LS clear, equal, unlabored bilaterally throughout. HRRnormal. Remaining PE otherwise unremarkable. Will plan to treat with abx given hx of MRSA and sxs c/w cellulitis. No indication for I&D at this time given small fluctuant area. Plan: -D/c with rx for doxycycline. -Recs for use of OTC NSAIDs and warm compresses. -Close f/u with PCP and strict ED precautions reviewed. Discussed my evaluation of the patient's symptoms, my clinical impression, and my proposed discharge treatment plan with patient. We have discussed anticipatory guidance, scheduled follow-up, and careful return precautions. Patient expresses understanding, is agreeable, and comfortable with the disc harge plan. Denies any questions or concerns at this time. NAD noted upon discharge. Previous chart, nursing notes, and vital signs reviewed. Pertinent labs & imaging results that were available during my care of the patient were reviewed by me and considered in my medical decision making (see chart for details). Portions of this record have been created using [employer] dictation software. Dictation errors have been sought, but may not have been identified and corrected. History CHIEF COMPLAINT Chief Complaint Patient presents with ??? Cyst cyst to left axilla for past 3 days. Increasing in size over past three days. PAST MEDICAL HISTORY Past Medical History: Diagnosis Date ??? Acid reflux ??? ADHD (attention deficit hyperactivity disorder) ??? Anemia ??? Anxiety ??? Asthma ??? Benign essential tremor ??? Depression ??? History of Helicobacter pylori infection ??? History of MRSA infection 2013 left leg ??? Hypothyroidism, juvenile ??? IgA deficiency (CMS-HCC) ??? Low ferritin ??? Migraines ??? Obesity SURGICAL HISTORY Past Surgical History: Procedure Laterality Date ??? COLONOSCOPY ? ulcer ??? ESOPHAGOGASTRODUODENOSCOPY x2 ??? KNEE ARTHROSCOPY Bilateral ??? CO LAP,CHOLECYSTECTOMY N/A 06/15/2017 Procedure: LAPAROSCOPIC CHOLECYSTECTOMY; Surgeon: New Felton MD; Location: [facility]; Service: General Surgery ??? TONSILLECTOMY AND ADENOIDECTOMY ??? TYMPANOSTOMY TUBE PLACEMENT Bilateral CURRENT MEDICATIONS Current Outpatient Medications: ? ? B2-mag cit [...] six (6) hours as needed for pain. (Patient not taking: Reported on 10/24/2019), Disp: 20 tablet, Rfl: 0 ??? JUNEL 1.07/05, 21, 1.5-30 mg-mcg Tab, TAKE 1 TABLET ONCE DAILY, Disp: 84 tablet, Rfl: 0 ??? lamoTRIgine (LAMICTAL) 25 [...] by mouth daily., Disp: , Rfl: ??? prazosin (MINIPRESS) 2 MG capsule, Take 1 capsule (2 mg total) by mouth nightly., Disp: 90 capsule, Rfl: 3 ??? propranolol (INDERAL LA) 80 mg 24 [...] mg by mouth nightly., Disp: , Rfl: ALLERGIES Allergies Allergen Reactions ??? Sulfa (Sulfonamide Antibiotics) Anaphylaxis ??? Cephalosporins Rash FAMILY HISTORY Family History Problem Relation Age of Onset ??? Depression Mother ??? Anxiety disorder Mother ??? Hypertension Father ??? Hyperlipidemia Father ??? Diabetes Paternal Grandmother ??? Heart disease Paternal Grandfather SOCIAL HISTORY Social History Socioeconomic History ??? Marital status: [...] on phone: None Gets together: None Attends advent service: None Active member of club or organization: None Attends meetings of clubs or organizations: None Relationship status: None Other Topics Concern ??? None Social History Narrative ??? None REVIEW OF SYSTEMS 10-point ROS is otherwise negative except as documented. Review of Systems Constitutional: Negative for fever. HENT: Negative for sore throat. Eyes: Negative for pain. Respiratory: Negative for shortness of breath. Cardiovascular: Negative for chest pain. Gastrointestinal: Negative for abdominal pain. Genitourinary: Negative for hematuria. Skin: Positive for wound (tenderness, swelling, redness, bump noted to left axilla). Negative for rash. Neurological: Negative for headaches. All other systems reviewed and are negative. Physical Exam Vital Signs BP 122/74 (BP Site: R Arm, BP Position: Sitting) Pulse 87 Temp 37 ??C (98.6 ??F) (Tympanic) Resp 16 Ht 147.3 cm (4' 10) Wt 95.3 kg (210 lb) SpO2 98% No BMI 43.89 kg/m?? Physical Exam Physical Exam Constitutional: General: She is not in acute distress. Appearance: Normal appearance. She is well-developed. She is not ill-appearing or toxic-appearing. HENT: Head: Atraumatic. Nose: Nose normal. Eyes: General: Right eye: No discharge. Left eye: No discharge. Conjunctiva/sclera: Conjunctivae normal. Pupils: Pupils are equal, round, and reactive to light. Neck: Musculoskeletal: Normal range of motion and neck supple. Trachea: No tracheal deviation. Cardiovascular: Rate and Rhythm: Normal rate and regular rhythm. Heart sounds: Normal heart sounds. No murmur. Pulmonary: Effort: Pulmonary effort is normal. No respiratory distress. Breath sounds: Normal breath sounds. No wheezing. Abdominal: General: Bowel sounds are normal. There is no distension. Palpations: Abdomen is soft. There is no mass. Tenderness: There is no abdominal tenderness. Musculoskeletal: Normal range of motion. General: No swelling or tenderness. Skin: General: Skin is warm and dry. Capillary Refill: Capillary refill takes less than 2 seconds. Findings: Erythema and lesion present. Comments: Notable area of induration is noted to her left upper and lateral axilla. TTP to the affected site. Very minimal fluctuance (>1cm) is appreciated and a central area of eruption is noted.A small amount of pus is noted with applied gentle pressure to the central site. Area of redness with warmth to touch surrounding affected area spans 4-5 cm. Demonstrates FROM of left shoulder. Neurological: General: No focal deficit present. Mental Status: She is alert and oriented to person, place, and time. Mental status is at baseline. Motor: No weakness. Coordination: Coordination normal. Psychiatric: Mood and Affect: Mood normal. Behavior: Behavior normal. Thought Content: Thought content normal. THE FOLLOWING PPE WAS USED DURING THIS ENCOUNTER PATIENT: Linh Carvalho [x] EXAM GLOVES, N95 MASK, FACE SHIELD [] EXAM GLOVES, N95 MASK, FACE SHIELD AND GOWN [] EXAM GLOVES, MAX AIR, AND GOWN [] EXAM GLOVES, SURGICAL MASK AND EYE PROTECTION [] EXAM GLOVES, SURGICAL MASK [] SURGICAL MASK, EYE PROTECTION NICKI Moore documented in this encounter Plan of Treatment Not on file documented as of this encounter Visit Diagnoses Diagnosis Cellulitis of left axilla- Primary documented in this encounter Care Teams Dough Molder Hand Relationship Specialty Start Date End Date Mali Ascencio MD [address] [facility] [address] [facility] [place] [address] PCP - General Family Medicine 02/12/20 11/19/23 documented as of this encounter
--- OUTSIDE RECORDS SUMMARY | 2024-03-23 13:11 | XMS_ITS | Encounter Summary ---
Author Organization [facility] Address [address] [place] [address] Care Team Providers Care Clinical Account Executive Name Role Phone Julito Mayo MD Primary Care Pro vider Reason for Referral * Diagnostic Imaging (Routine) - Closed Specialty Diagnoses / Procedures Referred By Hiram montalvo Referred To Contact Diagnoses Closed displaced fracture of proximal phalanx of lesser toe of left foot with routine healing, subsequent encounter Procedures XR Toes Left Franca Hyde FNP [address] [place] [address] Phone: tel: fax: Referral ID Status Reason Start Date Expiration Date Visits Re quested Visits Authorized [id number] Closed 09/20/2019 09/19/2020 1 1 Reason for Visit * Reason Comments Foot Injury * Generic Referral (Routine) - Closed Specialty Diagnoses / Procedures Referred By Contsteffanie montalvo Referred To Contact Orthopedic Surgery Diagnoses Closed nondisplaced fracture of phalanx of lesser toe of left foot, unspecified phalanx, sequela Julito Mayo MD [address] [place] [address] Phone: tel: fax: [facility] [address] [place] [address] Phone: tel: fax: Referral ID Status Reason Start Date Expiration Date V isits Requested Visits Authorized [id number] Closed Specialty Services Required 09/05/2019 09/04/2020 1 1 Encounter Details Date Type Department Care Team (Latest Contact Info) Description 09/20/2019 3:00 PM EDT Office Visit [facility] [address] [place] [address] Mary Ellen Franca Graciela, NICKI [address] [place] [address] Closed displaced fracture of proximal phalanx of lesser toe of left foot with routine healing, subsequent encounter (Primary Dx); Closed nondisplaced fracture of proximal phalanx of lesser toe of left foot with routine healing, subsequent encounter Social History Tobacco Use Types Packs/Day [...] on file documented as of this encounter Patient Instructions * Patient Instructions* Mary Ellen Franca NICKI Owens - 09/20/2019 3:00 PM EDT Images from the original note were not included. Patient Education Toe Fracture: Rehab Exercises Introduction Here are some examples of exercises for you to try. The exercises may be suggested for a condition or for rehabilitation. Start each exercise slowly. Ease off the exercises if you start to have pain. You will be told when to start these exercises and which ones will work best for you. How to do the exercises Passive toe exercise 1. Sit on the floor, with the heel of your affected foot on the floor. Use one hand to hold your foot steady. 2. Using the thumb and index (pointing) finger of your other hand, slowly bend your toe forward andthen backward. Hold each position for about 15 seconds. 3. Repeat 2 to 4 times. Toe curl 1. Sit on the floor, with the heel of your affected foot on the floor. 2. Gently curl your toes forward and then backward. Hold each position for about 6 seconds. 3. Repeat 8 to 12 times. Towel scrunches 1. Sit in a chair, and place your affected foot on a towel on the floor. 2. Scrunch the towel toward you with your toes. Then use your toes to push the towel back into place. 3. Repeat 8 to 12 times. Nenzel pick-ups 1. Put some marbles on the floor next to a cup. 2. Sit in a chair, and use the toes of your affected foot to lift up one marble from the floor at atime. Then try to put the marble in the cup. 3. Repeat 8 to 12 times. Towel stretch 1. Sit with your legs extended and knees straight. 2. Place a towel or belt around your foot just under your toes. 3. Hold both ends of the towel or belt, with your hands above your knees. 4. Pull back with the towel or belt so that your foot stretches toward you. 5. Hold the position for at least 15 to 30 seconds. 6. Repeat 2 to 4 times. Follow-up care is a marie part of your treatment and safety. Be sure to make and go to all appointments, and call your doctor if you are having problems. It's also a good idea to know your test resultsand keep a list of the medicines you take. Where can you learn more? Go to [facility] at https://[facility].org Digitwhiz under the Resources menu. Enter N271 in the search box to learn more about Toe Fracture: Rehab Exercises. Current as of: April 08, 2019?Content Version: 12.5 ?? [id number] [employer]. Care instructions adapted under license by [facility]. If you have questions about a medical condition or this instruction, always ask your healthcare professional. [employer] disclaims any warranty or liability for your use of this information. Thank you for choosing [facility]! We appreciate the opportunity to participate in your care. You will likely be following up with one of the specialty teams if you were seen in [facility]. If any questions or concerns arise after your visit, please do not hesitant to contact me by [facility] or by calling: [facility]: [phone] or leaving a voicemail with my Manager Of Compliance, Katharine: [phone] documented in this encounter Progress Notes * Franca Hyde FNP - 09/20/2019 3:00 PM EDT Scheduled Visit Assessment: Diagnosis ICD-10-CM Associated Orders 1. Closed displaced fracture of proximal phalanx of lesser toe of left foot with routine healing, subsequent encounter S92.512D XR Toes Left 2. Closed nondisplaced fracture of proximal phalanx of lesser toe of left foot with routine healing, subsequent encounter S92.515D Ambulatory referral to Orthopedic Surgery Plan: Discussed conservative treatment options (RICE, Tylenol, NSAIDs, heat as appropriate). Discontinue HSS. Slowly return to activities as tolerated. WBAT. F/U plan: Return if symptoms worsen or fail to improve. History of present illness: 24 y.o. female following up for left 5th toe proximal phalanx fracture.DOI 08/16/2019, I last saw her in clinic 08/23/2019, continued HSS, prescription given for HC/APAP, took 5 tables since last visit. Currently not taking anything for pain relief. No interval injury. Has been wearing HSS. Past Medical History: has a past medical history of Acid reflux, ADHD (attention deficit hyperactivity disorder), Anemia, Anxiety, Asthma, Benign essential tremor, Depression, History of Helicobacterpylori infection, History of MRSA infection (2012), Hypothyroidism, juvenile, IgA deficiency ([facility]-HCC), Low ferritin, Migraines, and Obesity. Past Surgical History: has a past surgical history that includes Tonsillectomy and adenoidectomy; Knee arthroscopy (Bilateral); Tympanostomy tube placement (Bilateral); pr lap,cholecystectomy (N/A, 06/15/2017); Esophagogastroduodenoscopy; and Colonoscopy. Current Medications: has a current medication list which includes the following prescription(s): b2-magnesium cit,oxid-feverfew, docusate sodium, escitalopram oxalate, fluticasone furoate-vilanterol,hydrocodone-acetaminophen, lamotrigine, levocetirizine, melatonin, montelukast, multivitamin, norethindrone-ethinyl estradiol, prazosin, propranolol, propranolol, thyroid (pork), and trazodone. Allergies: is allergic to sulfa (sulfonamide antibiotics) and cephalosporins. Social History: reports that she has never smoked. She has never used smokeless tobacco. She reports current alcohol use. She reports that she does not use drugs. Work: [employer] Family History: family history includes Anxiety disorder in her mother; Depression in her mother; Diabetes in her paternal grandmother; Heart disease in her paternal grandfather; Hyperlipidemia in her father; Hypertension in her father. Review of Systems: No recent fevers, chest pain, eye pain, headache, wheezing, nausea, painful urination, rash, numbness/tingling, hallucinations, easy bruising, excessive thirst, allergic reaction to food. . . Physical examination: Well developed, well nourished, in no acute distress. Alert & oriented x 3. Hearing normal. No evidence of respiratory distress. No scars, rashes or lesions. Obese. Wearing HSS. Minimally antalgic gait favoring left foot. Minimally TTP medial proximal aspect of proximal phalanx left 5th toe. Nontender lateral aspect. Ankle ROM equal, full, painless. No pain with midfoot motion. Negative calcaneal squeeze, syndesmosis squeeze. Strength 5/5. No edema or effusion. Dp pulse 2+ Imaging: Three views of the left 5th toe today continue to show mildly displaced extraarticular fracture through the proximal metaphysis of the proximal phalanx, these xrays are compared with xrays from 08/19/2019, callus, blending and sclerosis at the lateral most aspect of the fracture site. No further displacement of the fracture fragments. documented in this encounter Plan of Treatment Not on file documented as of this encounter Procedures Procedure Name Priority Date/Time Associated Diagnosis Comments AMB REFERRAL TO ORTHOPEDICS Routine 09/20/2019 Closed nondisplaced fracture of proximal phalanx of lesser toe of left foot with routine healing, subsequent encounter documented in this encounter Results * XR Toes Left (09/20/2019 3:21 PM EDT) Anatomical Region Laterality Modality Foot Left Radiographic Iveth ging 09/20/2019 3:26 PM EDT Impressions 09/20/2019 3:27 PM EDT Healing and otherwise unchanged small toe proximal phalanx fracture. Narrative 09/20/2019 3:27 PM EDT EXAM: XR TOES LEFT DATE: 09/20/2019 3:21 PM DICTATED: 09/20/2019 3:26 PM INTERPRETATION LOCATION: [facility] CLINICAL INDICATION: 24 years old Female with [...] DICTATED: 09/20/2019 3:26 PM INTERPRETATION LOCATION: [facility] CLINICAL INDICATION: 24 years old Female with [...] otherwise unchanged small toe proximal phalanx fracture. Franca Graciela Mary Ellen SHOP ASSISTANT IMG DIAGNOSTIC IMAGING ORDERABLES Final Result * Ambulatory referral to Orthopedic Surgery (09/20/2019) Impressions Natty Boucher - 09/20/2019 Saw Franca Hyde at [facility] on 09/20/19 Office notes are in epic under the chart review tab then see encounters us Julito Mayo MD OUTPATIENT REFERR AL ORDERABLES Final Result documented in this encounter Visit Diagnoses Diagnosis Closed displaced fracture of proximal phalanx of lesser toe of left foot with routine healing, subsequent encounter- Primary Closed nondisplaced fracture of proximal phalanx of lesser toe of left foot with routine healing, subsequent encounter Injury of left toe, subsequent encounter documented in this encounter Care Teams Clinical Account Executive Relationship Specialty Start Date End Date Julito Mayo MD [address] [place] [address] PCP - General Family Medicine 09/06/19 02/11/20 documented as of this encounter
--- OUTSIDE RECORDS SUMMARY | 2024-03-23 13:11 | XMS_ITS | Encounter Summary ---
Author Organization [facility] Address [address] [place] [address] Care Team Providers Care Metal Miner Blasting Name Role Phone Julito Mayo MD Primary Care Pro vider Reason for Visit * Reason Onset Date Comments back dated referral 2019 Encounter Details Date Type Department Care Team (Late st Contact Info) Description 2019 Telephone [facility] [address] [place] [address] Michelle Webster CMA [facility] back dated referral Social History Tobacco Use Types Packs/Day Years [...] Progress Notes * Michelle Webster CMA - 2019 2:47 PM EDT My chart sent to the patient. JE * Michelle Webster CMA - 2019 2:47 PM EDT ----- Message from Julito Mayo MD sent at 2019 2:27 PM EDT ----- Regarding: FW: GI REFERRAL Ok with me if ok with pt... call pt 1st then let CP know ----- Message ----- From: Natty Boucher Sent: 2019 1:28 PM EDT To: Julito Mayo MD, # Subject: RE: GI REFERRAL You entered her referral for [facility] and they don't take [facility] anymore Is it okay to send referral to [facility] instead? Thank you Pratima ----- Message ----- From: Juarez Brown RN Sent: 2019 12:37 PM EDT To: Natty Boucher Subject: RE: GI REFERRAL Good morning- I have not entered any referrals so I am not sure why this is assigned to me? Sorry! Juarez ----- Message ----- From: Natty Boucher Sent: 09/05/2019 1:12 PM EDT To: Juarez Brown RN Subject: GI REFERRAL You entered her gastro referral for [facility] and she has prime and they no longer accept[facility]ricare prime Where do you want this referral sent to? Thank you Pratima documented in this encounter Plan of Treatment Not on file documented as of this encounter Visit Diagnoses Not on filedocumented in this encounter Care Teams Metal Miner Blasting Relationship Specialty Start Date End Date Julito Mayo MD [address] [place] [address] PCP - General Family Medicine 09/06/19 02/11/20 documented as of this encounter
--- OUTSIDE RECORDS SUMMARY | 2024-03-23 13:11 | XMS_ITS | Encounter Summary ---
Author Organization [facility] Care Address [address] [place] [id number] Care Team Providers Care Assistant Production Editor Name Role Phone Toshia Heller MD Primary Care [facility] Reason for Referral * Diagnostic Imaging (Routine) - Closed Specialty Diagnoses / Procedures Referred By Contac t Referred To Contact Diagnoses Injury of right foot, initial encounter Procedures XR Foot 3 Or More Views Left Janis Khan PA [address] [place] [address] Phone: tel: fax: Referral ID Status Reason Start Date Expiration Date Visits Re quested Visits Authorized [id number] Closed 08/19/2019 08/18/2020 1 1 Reason for Visit * Diagnostic Imaging (Routine) - Closed Specialty Diagnoses / Procedures Referred By Contac t Referred To Contact Diagnoses Injury of right foot, initial encounter Procedures XR Foot 3 Or More Views Left Janis Khan PA [address] [place] [address] Phone: tel: fax: Referral ID Status Reason Start Date Expiration Date Visits Re quested Visits Authorized [id number] Closed 08/19/2019 08/18/2020 1 1 Encounter Details Date Type Department Care Team (Late st Contact Info) Description 08/19/2019 1:42 PM EDT - 08/19/2019 11:59 PM EDT Hospital Encounter IMG DIAG [facility] [id number] [facility] [place] [id number] Janis Khan PA [address] [facility] [address] [place], [place] [id number] Injury of right foot, initial encounter Discharge Disposition: Home with Self Care [...] tablet Take 20 mg by mouth daily. fluticasone-jd nterol (BREO ELLIPTA) 100-25 mcg/dose inhaler [...] mouth nightly. 0 norethindrone-et hinyl estradiol (JUNEL 20, ,) 1-20 mg-mcg per tablet Take 1 tablet by mouth daily. 0 vortioxetine (TRINTELLIX) 10 mg tablet Take 15 mg by mouth nightly. 0 documented as of this encounter Plan of Treatment Not on file documented as of this encounter Procedures Procedure Name Priority Date/Time Associated Diagnosis Comments XR FOOT 3 OR MORE VIEWS LEFT STAT 08/19/2019 1:53 PM EDT Injury of right foot, initial encounter documented in this encounter Results * XR Foot 3 [...] this encounter Visit Diagnoses Diagnosis Injury of right foot, initial encounter documented in this encounter Care Teams Assistant Production Editor Relationship Specialty Start Date End Date Toshia Heller MD PCP - General 03/13/14 09/05/19 documented as of this encounter
--- OUTSIDE RECORDS SUMMARY | 2024-03-23 13:11 | XMS_ITS | Encounter Summary ---
Author Organization Care Address [address] [place] [id number] Care Team Providers Care Art Museum Docent Name Role Phone Natanael Santoyo MD Primary Care Provider + Encounter Details Date Type Department Care Team (Late st Contact Info) Description 11/20/2023 8:35 PM EDT - 11/20/2023 11:11 PM EDT Emergency [facility] [place] [address] [place] [phone] Gabino Patel MD [address] [place] [address] [address] [place], [place] [id number] Pneumonia of both lower lobes due to infectious organism (Primary Dx); Moderate persistent asthma with exacerbation Discharge Disposition: Home with Self Care Social [...] Mass Index 45.35 11/20/2023 7:19 PM EDT documented in this encounter Discharge Instructions * Discharge Instructions* Nika Gonzalez PA - 11/20/2023 10:52 PM EDT It was a pleasure meeting you today. Thank you for choosing [facility] for your medical care. You presented to the emergency room secondary to feeling more short of breath, having more cough, and fever. Your workup here included history taking and physical exam. We discussed that your workup is reassuring, we do not believe that you need hospitalization or surgery at this time. We discussedthat we want to make sure that your pneumonia is fully treated by having you take both the Augmentin you were previously prescribed as well as adding azithromycin. We gave your first dose here, azithromycin is taken once daily, started at home tomorrow. Additionally, we discussed use of steroids, steroids are used to treat asthma exacerbations, you can start it tomorrow morning, take it once daily. Call primary care and schedule follow-up appointment this week, we want them to reevaluate you and make sure that you are feeling better. Return to the emergency room if you develop lightheadedness, dizziness, shortness of breath, chest pain, oximetry less than 89% on room air or any other new or worsening symptoms. * Attachments The following attachments cannot be sent through Care Everywhere. * Pneumonia ([place]) documented in this encounter Medications at Time [...] 100-25 mcg/dose inhaler Inhale 1 puff nightly. HYDROcodone-acet aminophen (NORCO) 5-325 mg per tablet Take 1 tablet by mouth every six (6) hours as needed for pain. 20 tablet 08/23/2019 JUNEL 1.5/30, 21, 1.5-30 mg-mcg Tab TAKE 1 TABLET ONCE DAILY 84 tablet 12/26/2019 lamoTRIgine (LAMICTAL) 25 MG tablet Take 100 mg by mouth daily. levocetirizine (XYZAL) 5 MG tablet Take 5 mg by mouth every evening. melatonin 3 mg Tab Take 6 mg by mouth nightly. montelukast (SINGULAIR) 10 mg tablet Take 10 mg by mouth nightly. multivitamin (MULTIVITAMIN) per tablet Take 1 tablet by mouth daily. predniSONE (DELTASONE) 20 MG tablet 3 po daily for 2 days, then 2 po daily for 2 days, then 1 po daily for 2 days 12 tablet 11/20/2023 propranolol (INDERAL LA) 80 mg 24 hr capsule Take 80 mg by mouth daily. migraines propranoloL (INDERAL XL) 120 MG 24 hr capsule Take 120 mg by mouth every morning. thyroid, pork, (ARMOUR THYROID) 180 mg Tab Take by mouth nightly. traZODone (DESYREL) 50 MG tablet Take 50 mg by mouth nightly. azithromycin (ZITHROMAX Z-YI) 250 MG tabletIndication s:Pneumonia of both lower lobes due to infectious organism Take 1 tablet (250 mg total) by mouth daily for 4 days. 4 tablet 11/20/2023 4 documented as of this encounter ED Notes * Nika Gonzalez PA - 11/20/2023 10:20 PM EDT Images from the original note were not included. Emergency Department Provider Note Room: [facility] Virtual/Virtual Medical Decision Making Linh Carvalho is a 28 y.o. female with a history of moderate persistent asthma presents withcough and fever despite antibiotic use. On exam, the patient's initial temp is 100.9 ??F, she is not tachycardic, initial O2 sat 94% on room air, she had a repeat temp while she was waiting to see a provider and it got as high as 103 ??F. Patient was given ibuprofen. She sitting comfortably on examtable in no acute distress, I do not appreciate coughing during my exam, she has clear breath sounds without wheezing, rhonchi, or rales, she does have some upper respiratory coarseness that I discussed with her he could be hearing as wheezing. Differential diagnosis includes pneumonia with hypoxia, asthma exacerbation, undertreated pneumonia, viral URI among multiple other etiologies. Had a good conversation with the patient, discussed that we would ambulate the patient make sure that she is not hypoxic, and as long as she is not, we discussed risks and benefits of treating with steroids, discussed that I did not appreciate wheezing onmy exam but if she reports that whenever she gets a cold, she needs to be treated for an asthma exacerbation, I think is reasonable to treat with steroids, would also add azithromycin, will provide pain management as needed, will review old records and reassess frequently. Progress Notes Review of old records reveals visit to [facility] urgent care yesterday, patient was seen for 3 to 4 days of feeling poorly, she had an O2 sat of 97% on room air, she was febrile, her chest x-ray showed bilateral lung opacities compatible with pneumonia, her viral swab was negative, she was started on Augmentin. Patient ambulated, mostly stayed at 94%, towards the end of ambulation, she had an O2 sat of 91%. Discussed with the patient that I think it is reasonable to start the additional antibiotic and she is going to start the steroid pills tomorrow morning. But urged the patient to continue her nebulizertreatments and have a low threshold for returning to the emergency room for worsening shortness of breath, fever, cough or any other new or worsening symptoms. Recommend follow-up with primary care. I have discussed treatment and plan with the patient. I have discussed need for follow up with patient. Questions were addressed at length, at this time there are no remaining questions. I have givenstrict return precautions at this time. Patient verbalizes understanding of return precautions, andis agreeable to treatment plan and discharge. ___ I have reviewed recent and relavant previous record, including: Outpatient notes - urgent care Escalation of Care including OBS/Admission/Transfer was considered: However, patient was determinedto be appropriate for outpatient management. See progress note for additional detail. Considerationfor admission was made after the initial evaluation was performed the possibility of pneumonia withhypoxia was considered Diagnostic tests considered but not performed: Chest x-ray, discussed limited utility with patient Disposition Clinical Impression: Final diagnoses: Pneumonia of both lower lobes due to infectious organism (Primary) Moderate persistent asthma with exacerbation Final Disposition: Home History Chief Complaint: No chief complaint on file. HPI: Linh Carvalho is a 28 y.o. female presents with concern for persistent shortness of breath. The patient reports that about 4 days ago, she started feeling sick, she reports that she had sore throat, runny nose, and cough. The cough has persisted. She has a history of asthma, is on Breo,has not had any asthma exacerbations in the last 12 months. She reports that whenever she gets sick, she requires treatment with steroids. She reports that she went to an urgent care yesterday, they did a chest x-ray and she was diagnosed with pneumonia, she was treated with Augmentin, she took 2 doses the first day, 1 dose today, is due for her next dose at this time. She reports that she is conc erned because she continues to cough, she continues to have fever, she continues to feel poorly. She has tried using her albuterol nebulizer [id number] without much relief. Her reports that he can hear a wheeze. She reports she had a pulse oximetry at home and she had a reading of 87%on room air. She did not take any antipyretic prior to coming in because she reports that she was concerned that we would not believe her if she did not have a fever. Outside Historian(s): Significant other: MEDICATIONS: Discharge Medication List as of 11/20/2023 10:56 PM START taking these medications Details azithromycin (ZITHROMAX Z-YI) 250 MG tablet Take 1 tablet (250 mg total) by mouth daily for 4 days., Starting 11/20/2023, Until Mon11/24/2023, Normal predniSONE (DELTASONE) 20 MG tablet 3 po daily for 2 days, then 2 po daily for 2 days, then 1 po daily for 2 days, Normal CONTINUE these medications which have NOT CHANGED Details B2-mag cit & ox-feverfew (MIGRELIEF) 200-180-50 mg Tab Take 1 tablet by mouth Two (2) times a day. , Historical Med docusate sodium (COLACE) 50 MG capsule Take by mouth Two (2) times a day., Historical Med escitalopram oxalate (LEXAPRO) 20 MG tablet Take 20 mg by mouth daily., Historical Med fluticasone-vilanterol (BREO ELLIPTA) 100-25 mcg/dose inhaler Inhale 1 puff nightly., Historical Med HYDROcodone-acetaminophen (NORCO) 5-325 mg per tablet Take 1 tablet by mouth every six (6) hours asneeded for pain., Starting Mon08/23/2019, Normal JUNE 1.5, 21, 1.5-30 mg-mcg Tab TAKE 1 TABLET ONCE DAILY, Normal lamoTRIgine (LAMICTAL) 25 MG tablet Take 100 mg by mouth daily. , Historical Med levocetirizine (XYZAL) 5 MG tablet Take 5 mg by mouth every evening., Historical Med melatonin 3 mg Tab Take 6 mg by mouth nightly., Historical Med montelukast (SINGULAIR) 10 mg tablet Take 10 mg by mouth nightly., Historical Med multivitamin (MULTIVITAMIN) per tablet Take 1 tablet by mouth daily., Historical Med prazosin (MINIPRESS) 2 MG capsule Take 1 capsule (2 mg total) by mouth nightly., Starting Mon09/05/2019, Until Mon09/04/2020, No Print propranolol (INDERAL LA) 80 mg 24 hr capsule Take 80 mg by mouth daily. migraines , Historical Med propranoloL (INDERAL XL) 120 MG 24 hr capsule Take 120 mg by mouth every morning., Historical Med thyroid, pork, (ARMOUR THYROID) 180 mg Tab Take by mouth nightly., Historical Med traZODone (DESYREL) 50 MG tablet Take 50 mg by mouth nightly., Historical Med ALLERGIES: Allergies Allergen Reactions Sulfa (Sulfonamide Antibiotics) Anaphylaxis Cephalosporins Rash PAST MEDICAL HISTORY: Past Medical History: Diagnosis Date Acid reflux ADHD (attention deficit hyperactivity disorder) Anemia Anxiety Asthma Benign essential tremor Depression History of Helicobacter pylori infection History of MRSA infection 2013 left leg Hypothyroidism, 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) Low ferritin Migraines Obesity PAST SURGICAL HISTORY: Past Surgical History: Procedure Laterality Date COLONOSCOPY ? ulcer ESOPHAGOGASTRODUODENOSCOPY x2 KNEE ARTHROSCOPY Bilateral GA LAP,CHOLECYSTECTOMY N/A 06/15/2017 Procedure: LAPAROSCOPIC CHOLECYSTECTOMY; Surgeon: New Felton MD; Location: [place] [facility] [place]; Service: General Surgery TONSILLECTOMY AND ADENOIDECTOMY TYMPANOSTOMY TUBE PLACEMENT Bilateral SOCIAL HISTORY: Social History Tobacco Use Smoking status: Never Smokeless tobacco: Never Substance Use Topics Alcohol use: Yes Comment: occas FAMILY HISTORY: Family History Problem Relation Age of Onset Depression Mother Anxiety disorder Mother Hypertension Father Hyperlipidemia Father Diabetes Paternal Grandmother Heart disease Paternal Grandfather Physical Exam Vitals: 11/20/23 2245 BP: Pulse: Resp: Temp: (!) 37.9 ??C (100.3 ??F) SpO2: 94% Reviewed vital signs and nursing note as charted by RN. CONSTITUTIONAL: Alert and oriented and responds appropriately to questions. Well-appearing; in no acute distress HEAD: Normocephalic; atraumatic EYES: Conjunctivae clear, sclerae non-icteric ENT: Moist mucous membranes NECK: Supple without meningismus CARD: Skin is well perfused, no JVD. Regular rate and rhythm, no murmur, rub or gallop RESP: I did not appreciate any coughing during the time my exam, normal chest excursion without splinting or tachypnea. Clear to auscultation bilaterally, no wheezing, rhonchi, or rales. I do appreciate some upper respiratory hoarseness ABD/GI: Nondistended EXT: No long bone deformities SKIN: Normal color for age and race; warm; dry; no acute lesions noted NEURO: Alert, oriented, Moves all extremities PSYCH: The patient's mood and manner are appropriate. Grooming and personal hygiene are appropriate Results Pertinent labs & imaging results that were available during my care of the patient were reviewed by me and considered in my medical decision making (see chart for details). No results found for this visit on 11/20/23. No orders to display No results found for this visit on 11/20/23 (from the past 4464 hour(s)). Nika Gonzalez PA 11/21/23 0120 Cosigned by Gabino Patel MD at 11/21/2023 3:12 PM EDT * Dahlia Calvert RN - 11/20/2023 7:19 PM EDT Dx w/ double pneumonia. C/o continued fever and body aches. Last Tylenol was 5 hrs ago documented in this encounter Plan of Treatment Not on file documented as of this encounter Visit Diagnoses Diagnosis Pneumonia of both lower lobes due to infectious organism- Primary Moderate persistent asthma with exacerbation Unspecified asthma, with exacerbation documented in this encounter Administered Medications Inactive Administered Medications - up to 3 most recent administrations Medication Order MAR Action Action Date Dose Rate Site amoxicillin-clavulanate (AUGMENTIN) 875-125 mg per tablet 1 tablet 1 tablet, Oral, Once, On Mon11/20/23 at 2252, For 1 dose, Give With Food, STAT, Indications: pneumoniaIndications:pneumonia Given 11/20/2023 11:01 PM EDT 1 tablet azithromycin (ZITHROMAX) tablet 500 mg 500 mg, Oral, Once, On Mon11/20/23 at 2252, For 1 dose, STAT, Indications: pneumoniaIndications:pneumonia Given 11/20/2023 11:01 PM EDT 500 mg ibuprofen (MOTRIN) tablet 600 mg 600 mg, Oral, Once, On Mon11/20/23 at 2129, For 1 dose, Give with Food or Milk, STAT Given 11/20/2023 9:33 PM EDT 600 mg documented in this encounter Active and Recently Administered Medications Times are shown in EDT. Scheduled Medication Order 11/18/2023 11/19/2023 11/20/2023 amoxicillin-clavulanate (AUGMENTIN) 875-125 mg per tablet 1 tablet (COMPLETED) 1 tablet, Oral, Once, On Mon11/20/23 at 2252, For 1 dose, Give With Food, STAT, Indications: pneumonia 2301 (Given - Provid er: Karina Wolf RN) azithromycin (ZITHROMAX) tablet 500 mg (COMPLETED) 500 mg, Oral, Once, On Mon11/20/23 at 2252, For 1 dose, STAT, Indications: pneumonia 2301 (Given - Provid er: Karina Wolf RN) ibuprofen (MOTRIN) tablet 600 mg (COMPLETED) 600 mg, Oral, Once, On Mon11/20/23 at 2129, For 1 dose, Give with Food or Milk, STAT 2133 (Given - Provid er: Karina Wolf RN) documented in this encounter Care Teams Art Museum Docent Relationship Specialty Start Date End Date Natanael Santoyo MD [address] [place] [address] PCP - General Internal Medicine 11/20/23 documented as of this encounter
--- OUTSIDE RECORDS SUMMARY | 2024-03-23 13:11 | XMS_ITS | Encounter Summary ---
Author Organization [facility] Health Care Address [address] [place] [address] Care Team Providers Care Recruiting Assistant Name Role Phone Toshia Heller MD Primary Care Provi [facility] Reason for Visit * Reason Comments Foot Injury Left foot * Generic Referral (Routine) - Closed Specialty Diagnoses / Procedures Referred By Hiram montalvo Referred To Contact Orthopedic Surgery Diagnoses LEFT FOOT 5TH TOE INJURY- ONSET: ONE WEEK AGO, XRAYS IN EPIC Procedures ORTHONOW Franca Hyde FNP [address] [place] [address] Phone: tel: fax: Referral ID Status Reason Start Date Expiration Date Visits Re quested Visits Authorized [id number] Closed 08/23/2019 08/22/2020 1 1 Encounter Details Date Type Department Care Team (Latest Contact Info) Description 08/23/2019 4:45 PM EDT Office Visit [facility]TH[facility] [address] [place] [address] [address] and [address] [place] [id number] Franca Hyde FNP [address] [place] [address] Closed nondisplaced fracture of proximal phalanx of lesser toe of left foot, initial encounter (Primary Dx) Social History Tobacco Use Types [...] this encounter Patient Instructions * Patient Instructions* Franca Hyde, NICKI - 08/23/2019 4:45 PM EDT Images from the original note [...] place. 3. Repeat 8 to 12 times. Mcdonough pick-ups 1. Put some marbles on the [...] more? Go to [facility] at https://my[facility]chart.org Select nprogress under the Resources menu. Enter N271 in the search box to learn more about Toe Fracture: Rehab Exercises. Current as of: April 08, 2019?Content Version: 12.5 ?? 0425-2646 American Board of Addiction Medicine (ABAM). Care instructions adapted under license by [facility] [place] [employer] [facility]. If you have questions about a medical condition or this instruction, always ask your healthcare professional. American Board of Addiction Medicine (ABAM) disclaims any warranty or liability for your use of this information. Thank you for choosing [facility] Orthopaedics! We appreciate the opportunity to participate in your care. You will likely be following up with one of the specialty teams if you were seen in [facility]. If any questions or concerns arise after your visit, please do not hesitant to contact me by [facility] Aductionst or by calling: Main Orthopaedic Appointment Center: [phone] or leaving a voicemail with my Technical Information Specialist Katharine: [phone] documented in this encounter Progress Notes * Franca Hyde FNP - 08/23/2019 4:45 PM EDT [facility] Visit Assessment: Diagnosis ICD-10-CM Associated Orders 1. Closed nondisplaced fracture of proximal phalanx of lesser toe of left foot, initial encounter S92.515A Plan: Discussed conservative treatment options (RICE, Tylenol, NSAIDs, heat as appropriate). Emmanuel tape for comfort, continue HSS. Prescription sent electronically for HC/APAP 5/325 1 tab po q 6 hr prn pain, #20, refills 0. This should be her only prescription for narcotics for this fracture. Transition to Tylenol after this prescription complete. F/U plan: Return for F/U 3-4 weeks, 5th toe prox ph fx, XR L toe ([place], [place]). History of present illness: 23 y.o. female c/o left toe fracture. DOI 08/16/2019, running with dog in basement, caught toe on something, abduction injury. Presented to [facility] Urgent Care in [place] 08/19/2019, xrays showed 5th toe proximal phalanx fracture. Has not established with PCP yet, called to get a referral to Orthopaedics, declined. Called [facility], declined appt w/o referral from PCP (previously seen for another issue). Localizes pain to proximal phalanx left 5th toe. Given HSS, has been wearing and has been emmanuel taping. No interval injury. No paresthesias. 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 Past Surgical History: has a past surgical history that includes Tonsillectomy and adenoidectomy; Knee arthroscopy (Bilateral); Tympanostomy tube placement (Bilateral); and pr lap,cholecystectomy (N/A, 06/15/2017). Current Medications: has a current medication list which includes the following prescription(s): b2-magnesium cit,oxid-feverfew, docusate sodium, escitalopram oxalate, fluticasone furoate-vilanterol,lamotrigine, levocetirizine, melatonin, melatonin, montelukast, multivitamin, norethindrone-ethinylestradiol, propranolol, propranolol, thyroid (pork), trazodone, vortioxetine, and hydrocodone-acetaminophen. Allergies: is allergic to sulfa (sulfonamide antibiotics) and cephalosporins. Social History: reports that she has never smoked. She has never used smokeless tobacco. She reports that she does not drink alcohol or use drugs. Work: Family History: family history is not on file. Review of Systems: No recent fevers, chest pain, eye pain, headache, wheezing, nausea, painful urination, rash, numbness/tingling, hallucinations, easy bruising, excessive thirst, allergic reaction to food. Negative ROS: no Allergic reaction to food, no Chest pain, no Fever, no Eye pain, no Headache, no Wheezing, no Painful urination, no Nausea, no Excessive thirst, no Easy bruising, no Hallucinations, no Numbness/tingling, no Rash, no Joint pain. . Physical examination: Well developed, well nourished, in no acute distress. Alert & oriented x 3. Hearing normal. No evidence of respiratory distress. Subtle ecchymosis dorsal proximal left 5th toe, and dorsal foot at the base of the 3rd toe. No open wounds. No erythema or warmth. Wearing HSS. No gross deformity. Moves toes well through ROM. Mild pain with ROM 5th toe, MTP and IP joints. Mildly antalgic gait favoring left foot. Sensation intact LLE. Dp pulse 2+ No edema or effusions. No pain with midfoot motion. Ankle ROM equal, full, painless. Nontender throughout entire ankle. Negative syndesmosis squeeze, calcaneal squeeze. Bilateral 5th toes rotate at the PIP joints and toe nail face s laterally. Imaging: No imaging today. Reviewed foot xrays from 08/19/2019, minimally displaced extraarticular fracture through the proximal phalanx metaphysis. IP joints appear malaligned. documented in this encounter Plan of Treatment Not on file documented as of this encounter Visit Diagnoses Diagnosis Closed nondisplaced fracture of proximal phalanx of lesser toe of left foot, initial encounter- Primary documented in this encounter Care Teams Recruiting Assistant Relationship Specialty Start Date End Date Toshia Heller MD PCP - General 03/13/14 09/05/19 documented as of this encounter
--- OUTSIDE RECORDS SUMMARY | 2024-03-23 13:12 | XMS_ITS | Encounter Summary ---
Author Organization [facility] Address [address] [place] [address] Care Team Providers Care Border Machine Operator Name Role Phone Toshia Heller MD Primary Care Provi [facility] Reason for Visit * Auth/Cert Specialty Diagnoses / Procedures Referred By Contac t Referred To Contact Diagnoses RIGHT UPPER QUADRANT PAIN Procedures IL LAP,CHOLECYSTECTOMY LAPAROSCOPIC CHOLECYSTECTOMY Referral ID Status Reason Start Date Expiration Date Visits Re quested Visits Authorized [id number] 1 1 Encounter Details Date Type Department Care Team (Late st Contact Info) Description 06/15/2017 6:03 AM EDT - 06/15/2017 12:15 PM EDT Hospital Encounter [facility] [address] [place] [phone] [place] Fel[place] MD [address] [facility] [place] [address] Discharge Disposition: Home with Self Care Social [...] Sign Reading Time Taken Comments Blood Pressure 119/68 06/15/2017 11:45 AM EDT Pulse 90 06/15/2017 11:45 AM EDT Temperature 36.6 ??C (97.9 ??F) 06/15/2017 11:45 AM E DT Respiratory Rate 18 06/15/2017 11:45 AM EDT Oxygen Saturation 100% 06/15/2017 11:45 AM EDT Inhaled Oxygen Concentration - - [...] instructed to remove all jewelry and nail syriac prior to surgery. Per NPO guidelines - [...] 0000 Expand All Collapse All Linh Carvalho [phone] Operative Note (CSN: [id number]) Date of Surgery: 06/15/2017 Pre-op Diagnosis: RIGHT [...] RIGHT UPPER QUADRANT PAIN Case Notes /CPT 28099 / PRE-CALL / CASE MOVED UP TO 0800 WITH JONATHAN 4/16 [facility] Special Needs /CPT 08471 / PRE-CALL / CASE MOVED UP TO 0800 WITH JONATHAN 4/16 [facility] , URINE STAT 06/15/2017 6:56 AM EDT documented in this encounter Results * Surgical pathology exam (06/15/2017 9:00 AM EDT) Case Report Surgical Pathology Report ? Case: [id number] ? Authorizing Provider: ??New Felton MD ??Collected: ? 06/15/2017 0900 ? Ordering Location: ? [facility] ? Received: ?06/15/2017 0929 ? Pathologist: ? Violet Harley MD ? Specimen: ?Gallbladder, GALLBLADDER ? 06/16/2017 8:40 AM EDT [facility] Diagnosis Gallbladder, excision: -Cholesterolos is and mild chronic cholecystitis. 06/16/2017 8:40 AM EDT [facility] at 0840 EDT Clinical History Pre-op diagnosis: RIGHT UPPER QUADRANT PAIN 06/16/2017 8:40 AM EDT [facility] Gross Description Label: Gallbladder. Received: Focally disrupted. Measurements: 5.7 x 2.6 x 1.5 cm. External surface: pink-prescott, smooth, glistening. Luminal Contents: Green viscous bile. Stones: Absent. Mucosa: [place]-prescott prescott with diffuse yellow stippling. Wall thickness: 0.2 cm. Other findings: None. Rep, 1. 06/16/2017 8:40 AM EDT [facility] Microscopic Description Microscopic examination performed. 06/16/2017 8:40 AM EDT [facility] EMBEDDED IMAGES 06/16/2017 8:40 AM EDT [facility] Tissue GALLBLADDER STRUCTURE / Unknown 06/15/2017 9:00 AM EDT 06/15/2017 9:29 AM EDT Comment:Pre-op diagnosis: RIGHT UPPER QUADRANT PAIN New Fel[place] MD PATHOLOGY/CYTOLOGY OLYA WERNER Final Result Performing Organization Address [facility] de Phone Number [facility] [address] [place] [address] * Qualitative, Urine (06/15/2017 6:56 AM EDT) Test, Urine Negative Negative 06/15/2017 7:13 AM EDT [facility] Urine Collection / Unknown 06/15/2017 6:56 AM EDT 06/15/2017 7:00 AM EDT New Fel[place] MD URINE ORDERABLES Final Result [facility] [address] [place] [address] documented in this encounter Visit Diagnoses Not [...] Given 06/15/2017 10:40 AM EDT 975 mg fentaNYL (PF) (SUBLIMAZE) injection 25 mcg 25 [...] to 0.2 mL) Limit 2 attempts., Routine 0720 (Given - Provid er: Ayse Mooney RN) [...] Routine documented in this encounter Care Teams Border Machine Operator Relationship Specialty Start Date End Date Toshia Heller MD PCP - General 03/13/14 09/05/19 documented as of this encounter
--- OUTSIDE RECORDS SUMMARY | 2024-03-23 13:12 | XMS_ITS | Encounter Summary ---
Author Organization [facility] Address [address] [place] [address] Phone [phone] Care Team Providers Care Filling Separator Name Role Phone Shakira Santos MD Primary Care Provide r Reason for Referral * Specialty Diagnoses / Procedures Referred By Hiram montalvo Referred To Contact Diagnoses Positive self-administered antigen test for COVID-19 Pain of left lower extremity Markell Denny PA [address] [place] [address] [place] [address] Phone: tel: fax: Referral ID Status Reason Start Date Expiration Date Visits Re quested Visits Authorized Scheduling Instructions Patient verbalized understanding that they are responsible for scheduling their own appointment with recommended provider for their non emergent/urgent healthcare need. Encounter Details Date Type Department Care Team (Late st Contact Info) Description 03/13/2023 2:20 PM EST Telemedicine [place] [facility] [address] [facility] [address] [place] [address] Markell Denny PA [address] [place] [address] Ks Video Visit, Generic Positive self-administered antigen test for COVID-19 (Primary Dx); Pain of left lower extremity Social History Tobacco Use Types Packs/Day Years Used Date Smoking Tobacco: Never Smokeless Tobacco: Never Tobacco Cessation:Counseling Given: Not Answered Alcohol Use Standard Drinks/Week Comments Yes 0 (1 standard drink = 0.6 oz pure alcohol) Usually only 1-2 drinks per month Comments No Sex and Gender Information Value Date Recorded Sex Assigned at Not on file Legal Sex Female 12:58 PM EDT Gender Identity Not on file Sexual Orientation Not on file documented as of this encounter Patient Instructions * Patient Instructions* ASHLEY Olson - 03/13/2023 2:20 PM EST We are pleased to have treated you today via [facility] new telemedicine visit option. This type of visit was either appropriate for your complaint and physical screening parameters, or you were directed to in-person treatment. If we were able to treat you and you are not improving in the timeframe suggested, or the symptoms we discussed today worsen, please go to your nearest [facility] location, orsee your primary care provider for an in-person evaluation. If your symptoms become severe, please go to the nearest emergency department. * Attachments The following attachments cannot be sent through Care Everywhere. * COVID-19 Discharge Instructions (Slovak) * Deep vein thrombosis (blood clot in the legs) (Slovak) documented in this encounter Progress Notes * ASHLEY Olson - 03/13/2023 2:20 PM EST Subjective Patient ID: Linh Carvalho is a 27 y.o. female. Linh Carvalho is a 27 y.o. female who presents for evaluation of congestion and coughing for the past 24 hours and she tested positive for COVID with an at home test. No SOB, wheezing, nausea, vomiting or diarrhea. OTC medicine has helped slightly with symptoms. Additionally, starting today she developed left calf pain. No history of blood clots. History provided by: Patient Review of Systems Constitutional: Positive for fatigue. Negative for appetite change, chills, diaphoresis and fever. HENT: Positive for congestion. Negative for postnasal drip, rhinorrhea, sinus pressure, sinus pain,sneezing and sore throat. No loss of smell or taste. Eyes: Negative for discharge and redness. Respiratory: Positive for cough. Negative for apnea, chest tightness, shortness of breath and wheezing. Cardiovascular: Negative for chest pain and leg swelling. Gastrointestinal: Negative for diarrhea and nausea. Musculoskeletal: Positive for myalgias (leg pain). Negative for arthralgias. Skin: Negative for rash. Allergic/Immunologic: Negative for immunocompromised state. Neurological: Negative for headaches. Hematological: Does not bruise/bleed easily. Psychiatric/Behavioral: Negative for confusion. Patient History Allergies: Allergies Allergen Reactions Cephalosporins Rash Sulfa Antibiotics Anaphylaxis Cefuroxime Rash Cephalexin Rash Past Medical History: Diagnosis Date Asthma Disease of thyroid gland PCOS (polycystic ovarian syndrome) Past Surgical History: Procedure Laterality Date CHOLECYSTECTOMY KNEE SURGERY Bilateral TONSILLECTOMY Social History Socioeconomic History Marital status: Single Spouse name: Not on file Number of children: Not on file Years of education: Not on file Highest education level: Not on file Occupational History Not on file Tobacco Use Smoking status: Never Smokeless tobacco: Never Substance and Sexual Activity Alcohol use: Yes Comment: Usually only 1-2 drinks per month Drug use: Never Sexual activity: Yes Partners: Male control/protection: Ring Other Topics Concern Not on file Social History Narrative Not on file Family History Problem Relation Name Age of Onset Asthma Mother Yonis Carvalho Migraines Mother Yonis Carvalho Thyroid disease Mother Yonis Carvalho Seizures Father Keanu Carvalho Diabetes Paternal Grandmother Brittni Carvalho Current Outpatient Medications on File Prior to Visit Medication Sig Dispense Refill Advair HFA 115-21 MCG/ACT inhaler albuterol (2.5 MG/3ML) 0.083% nebulizer solution albuterol sulfate 2.5 mg/3 mL (0.083 %) solution for nebulization clonazePAM (KlonoPIN) 0.5 MG tablet clonazepam 0.5 mg tablet escitalopram (Lexapro) 10 MG tablet escitalopram 10 mg tablet fluticasone-vilanterol (BREO ELIPTA) 100-25 MCG/INH inhaler Inhale 1 puff 1 (one) time each day. lamoTRIgine (LaMICtal) 100 MG tablet lamotrigine 100 mg tablet metFORMIN XR (Glucophage-XR) 500 MG 24 hr tablet metformin ER 500 mg tablet,extended release 24 hr ondansetron (Zofran) 4 MG tablet ondansetron HCl 4 mg tablet propranolol (Inderal) 80 MG tablet Take 80 mg by mouth. thyroid ([place] Thyroid) 90 MG tablet [place] Thyroid 90 mg tablet traZODone (Desyrel) 100 MG tablet trazodone 100 mg tablet [DISCONTINUED] norethindrone-ethinyl estradiol (Junel FE 1/20) 1-20 MG-MCG tablet Take 1 tablet by mouth 1 (one) time each day. No current facility-administered medications on file prior to visit. Objective There were no vitals filed for this visit. LMP date is Approximate OBGYN/ Status: Having periods No results found. Physical Exam Constitutional: General: She is not in acute distress. Appearance: Normal appearance. She is normal weight. She is not ill-appearing, toxic-appearing or diaphoretic. HENT: Head: Normocephalic and atraumatic. Nose: No rhinorrhea. Eyes: General: No scleral icterus. Right eye: No discharge. Left eye: No discharge. Conjunctiva/sclera: Conjunctivae normal. Pulmonary: Effort: Pulmonary effort is normal. Musculoskeletal: Right lower leg: No tenderness or bony tenderness. Left lower leg: Tenderness (and pain with ambulation (self palpation telemed exam)) present. No bony tenderness. Neurological: Mental Status: She is alert and oriented to person, place, and time. Psychiatric: Mood and Affect: Mood normal. Behavior: Behavior normal. Thought Content: Thought content normal. Judgment: Judgment normal. No results found for this visit on 03/13/23. Procedures MDM: 1 Acute complicated illness or injury Explanation of Medical Decision Making and variances from expected care: Discussed with patient differential potential diagnoses. Diagnosis today is based on a one time evaluation without access to advanced diagnostic modalities. If the patient does not improve in the timeframe suggested, or the symptoms we discussed today worsen, the patient was instructed go to their nearest [facility] location, or see their primary care provider. If symptoms become severe, patient was instructed to go to the nearest emergency department. Patient is on Lexapro which is contraindicated with Paxlovid. Lexapro should not be stopped abruptly. Patient developed unilateral leg pain with diagnosis of COVID. Unable to properly examine the leg on telemedicine. Advised ED evaluation for possible DVT Risk:: High Assessment/Plan Diagnoses and all orders for this visit: Positive self-administered antigen test for COVID-19 - Referral to Emergency Medicine; Future Pain of left lower extremity - Referral to Emergency Medicine; Future Progress note signed by ASHLEY Olson on 03/13/23 at 2:30 PM documented in this encounter Plan of Treatment Scheduled Referrals Name Type Priority Associated Diagnoses Order Schedule Referral to Emergency Medicine Outpatient Referral Routine Positive self-administered antigen test for COVID-19 Pain of left lower extremity 1 Occurrences starting 03/13/2023 until 09/11/2023 documented as of this encounter Visit Diagnoses Diagnosis Positive self-administered antigen test for COVID-19- Primary Pain of left lower extremity documented in this encounter Care Teams Filling Separator Relationship Specialty Start Date End Date Shakira Santos MD [address] [place] [address] PCP - General Internal Medicine 04/20/21 documented as of this encounter
--- OUTSIDE RECORDS SUMMARY | 2024-03-23 13:12 | XMS_ITS | Encounter Summary ---
Author Organization [facility] Address [address] [place] [address] Phone [phone] Care Team Providers Care Scientific Manager Name Role Phone Shakira Santos MD Primary Care Provide r Encounter Details Date Type Department Care Team (Latest Contact Info) Description 03/13/2023 Travel Social History Tobacco Use Types Packs/Day Years [...] on filedocumented in this encounter Care Teams Scientific Manager Relationship Specialty Start Date End Date Shakira Santos MD [address] [place] [address] PCP - General Internal Medicine 04/20/21 documented as of this encounter
--- OUTSIDE RECORDS SUMMARY | 2024-03-23 13:12 | XMS_ITS | Encounter Summary ---
Author Organization [facility] Health Care Address [address] [id number] Care Team Providers Care Hides And Skins Colorer Name Role Phone Unavailable Primary Care Provider Unavailabl e Encounter Details Date Type Department Care Team (Late st Contact Info) Description 02/22/2012 Orders Only [facility] [address] [phone] Blanca Jacobs MD [address] [place] [id number] Social History Tobacco Use Types Packs/Day Years Used Date Smoking Tobacco: Never Assessed Comments Unknown Sex and Gender Information Value Date Recorded Sex Assigned at Not on file Legal Sex Female 11:55 PM EST Gender Identity Not on file Sexual Orientation Not on file documented as of this encounter Plan of Treatment Not on file documented as of this encounter Procedures Procedure Name Priority Date/Time Associated Diagnosis Comments SPINE CERV AP LAT ODON ([facility] HISTORICAL RESULT) Routine 02/22/2012 2:42 PM EST documented in this encounter Results * SPINE CERV AP LAT ODON ([facility] HISTORICAL RESULT) (02/22/2012 2:42 PM EST) Anatomical Region Laterality Modality Radiographic Iveth ging 02/22/2012 2:42 PM EST Narrative 02/22/2012 2:42 PM EST ORIGINAL REPORT [id number] ??02/22/12 ??14:38:00 [id number] ([facility]) : SPINE CERV AP LAT ODON EXAM: SPINE, CERVICAL TWO OR THREE VIEWS AP and lateral views of the cervical spine are presented for interpretation 02/22/12. ?? CLINICAL INDICATIONS: 16 year old F. ??PAIN. The vertebral body and disk space heights are preserved. ??No evidence for acute fracture, prevertebral soft tissue swelling or listhesis is noted. ??Lung apices are clear. INTERPRETATION LOCATION: ??[facility] [place] IMPRESSION: No acute osseous abnormality. ?? Procedure Note Joselito Cox MD - 04/11/2013 ORIGINAL REPORT [id number] 02/22/12 14:38:00 [id number] ([facility]) : SPINE CERV AP LAT ODON EXAM: SPINE, CERVICAL TWO OR THREE VIEWS AP and lateral views of the cervical spine are presented forinterpretation 02/22/12. CLINICAL INDICATIONS: 16 year old F. PAIN. The vertebral body and disk space heights are preserved. No evidence for acute fracture, prevertebral soft tissue swelling or listhesis is noted.Lung apices are clear. INTERPRETATION LOCATION: [facility] [place] IMPRESSION: No acute osseous abnormality. us Blanca Jacobs MD IMG DIAGNOSTIC IMAGING ORDERAB LES Final Result documented in this encounter Visit Diagnoses Not on filedocumented in this encounter
--- OUTSIDE RECORDS SUMMARY | 2024-03-23 13:12 | XMS_ITS | Encounter Summary ---
Author Organization [facility] Care Address [address] [place] [address] Care Team Providers Care Philosophy Lecturer Name Role Phone Toshia Heller MD Primary Care Provi [facility] Reason for Referral * Generic Referral (Routine) - Closed Specialty Diagnoses / Procedures Referred By Hiram montalvo Referred To Contact Rheumatology Diagnoses Cyanosis Homer Gordon MD [address] [facility] [address] [place] [address] Phone: tel: fax: [facility] [address] [address] Phone: tel: fax: Referral ID Status Reason Start Date Expiration Date V isits Requested Visits Authorized [id number] Closed Specialty Services Required 03/13/2014 2014 1 1 * Diagnostic Imaging (Routine) - Closed Specialty Diagnoses / Procedures Referred By Contsteffanie t Referred To Contact Diagnoses Cyanosis Procedures PVL TOM Homer Gordon MD [facility] [facility] [place] [facility] [address] [place] [address] Phone: tel: fax: Referral ID Status Reason Start Date Expiration Date Visits Re quested Visits Authorized [id number] Closed 03/13/2014 2014 1 1 Reason for Visit * Reason Comments hands turn blue Encounter Details Date Type Department Care Team (Late st Contact Info) Description 03/13/2014 3:00 PM EST Office Visit [facility] [place] [address] [facility] [address] [place] [phone] Homer Gordon MD [address] [facility] [address] [place] [address] Cyanosis (Primary Dx) Social History Tobacco Use Types Packs/Day Years Used Date Smoking Tobacco: Never Alcohol Use Standard Drinks/Week Comments No 0 (1 standard drink = 0.6 oz pur e alcohol) Comments Unknown Sex and Gender Information Value Date Recorded Sex Assigned at Not on file Legal Sex Female 11:55 PM EST Gender Identity Not on file Sexual Orientation Not on file documented as of this encounter Last Filed Vital Signs Vital Sign [place] Time Taken Comments Blood Pressure 112/55 03/13/2014 3:50 PM EST Pulse 71 03/13/2014 3:50 PM EST Temperature 36.4 ??C (97.5 ??F) 03/13/2014 3:50 PM ES T Respiratory Rate - - Oxygen Saturation - - Inhaled Oxygen Concentration - - Weight 70.8 kg (156 lb 1.6 oz) 03/13/2014 3:50 P M EST Height 147.3 cm (4' 10) 03/13/2014 3:50 PM EST Body Mass Index 32.62 03/13/2014 3:50 PM EST Body Mass Index Percentile 96.93% 03/13/2014 3:5 0 PM EST Growth Chart: CDC (Girls, 2- 20 Years) documented in this encounter Progress Notes * Homer Gordon MD - 03/13/2014 4:24 PM EST Date of visit: 03/13/2014 Referring physician: Toshia Heller MD Reason for visit: color and hand discoloration ASSESSMENT/PLAN: Bluish discoloration of hands and feet-does not appear to be raynaud's will refer to rheumatology. Not a macrovascular problem. Follow up PRN HPI:Linh Carvalho is a 18 y.o. year old female with a complex medical medical history. She reports developing bluish discoloration in her hands and feet over the last three weeks. Her hands are affected more than her feet. These episodes are not precipitated by cold. She has not started on any new medication. During the episodes she does not describe pain although she does describe some tingling. On her digital waveform exam she does not have vasospasm are cold immersion. No history of DVT/PE or heart problems as an . MEDICAL HISTORY: Past Medical History Diagnosis Date ??? ADHD (attention deficit hyperactivity disorder) ??? Hypothyroidism, juvenile ??? IgA deficiency ??? Anemia ??? Obesity ??? Anxiety ??? Raynauds phenomenon blue from wrist to fingers ??? Vasculitis SURGICAL HISTORY: Past Surgical History Procedure Laterality Date ??? Knee surgery ALLERGIES: Allergies as of 03/13/2014 - Jimi as Reviewed 03/13/2014 Allergen Reaction Noted ??? Sulfa (sulfonamide antibiotics) Anaphylaxis 03/07/2014 ??? Cephalosporins Rash 03/07/2014 MEDICATIONS: Prior to Admission medications Medication Sig Start Date End Date Taking? Authorizing Provider B2-mag cit & ox-feverfew (MIGRELIEF) 200-180-50 mg Tab Take 2 tablets by mouth. Yes Historical Provider, beclomethasone (QVAR) 80 mcg/actuation inhaler Inhale 2 puffs Two (2) times a day. Yes Historical Provider, CALCIUM PHOSPHATE/MELATONIN (CALCIUM-MELATONIN) 112-3 mg Tab Take by mouth. 03/17/09 Yes Historical Provider, clonazePAM (KLONOPIN) 0.5 MG tablet Take 0.5 mg by mouth Three (3) times a day. Yes Historical Provider, CONCERTA 18 mg CR tablet 02/11/14 Yes Historical Provider, diclofenac (VOLTAREN) 50 MG EC tablet 02/11/14 Yes Historical Provider, docusate sodium (COLACE) 100 MG capsule Take 100 mg by mouth daily. Yes Historical Provider, melatonin 5 mg Tab Take 5 mg by mouth nightly. Yes Historical Provider, montelukast (SINGULAIR) 10 mg tablet 02/24/14 Yes Historical Provider, OMEGA-3/DHA/EPA/FISH OIL (FISH OIL-OMEGA-3 FATTY ACIDS) 300-1,000 mg capsule Take 1 g by mouth daily. Yes Historical Provider, propranolol (INDERAL LA) 60 mg 24 hr capsule 02/07/14 Yes Historical Provider, risperiDONE (RISPERDAL) 0.25 MG tablet Take by mouth. 03/17/09 Yes Historical Provider, rizatriptan (MAXALT) 10 MG tablet 02/11/14 Yes Historical Provider, SYNTHROID 175 mcg tablet 03/08/14 Yes Historical Provider, topiramate (TOPAMAX) 25 MG tablet Take by mouth. 03/17/09 Yes Historical Provider, SOCIAL HISTORY reports that she has never smoked. She does not have any smokeless tobacco history on file. She reports that she does not drink alcohol or use illicit drugs. History Smoking status ??? Never Smoker Smokeless tobacco ??? Not on file FAMILY HISTORY No family history on file. REVIEW OF SYSTEMS: A further review of ten systems was performed and negative except as stated in HPI. PHYSICAL EXAMINATION: Filed Vitals: 03/13/14 1550 BP: 112/55 Pulse: 71 Temp: 36.4 ??C (97.5 ??F) GENERAL: Comfortable HEENT: normocephalic, atraumatic, EOMI, PERRLA CARDIOVASCULAR: RRR, no m/r/g RESPIRATORY: Normal work of breathing on RA, Clear to auscultation bilaterally, adequate inspiratory/expiratory effort ABDOMEN: Soft, nontender, nondistended. No appreciable hernias, masses, organomegaly. EXTREMITIES: Right Leg Femoral Palpable DP Palpable PT Palpable No edema or varicose veins Left Leg Femoral Palpable DP Palpable PT Palpable No edema or varicose veins Palpable radial pulses bilatearlly SKIN: No lesions, ulcerations, breakdowns noted on exam NEURO: CN II-XII grossly intact, no focal deficits noted LYMPHATICS: No cervical, supraclavicular, infraclavicular, axillary, or inguinal lymphadenopathy. Imaging: IMPRESSION A forearm to brachial index and digit #2 to brachial index was obtained bilaterally. PPG waveforms were obtained from the bilateral upper extremity digits pre and post ice bath immersion. Impression:. There was no evidence of hemodynamically significant upper extremity arterial disease before or immediately following cold immersion. documented in this encounter Procedure Notes * Provider, Not In System - 03/27/2014 12:00 AM EST documented in this encounter Plan of Treatment Scheduled Referrals Name Type Priority Associated Diagnoses Order Schedule Ambulatory referral to Rheumatology Outpatient Referral Routine Cyanosis Expected: 03/13/2014 (Approximate), Expires: 03/13/2015 documented as of this encounter Procedures Procedure Name Priority Date/Time Associated Diagnosis Comments PVL TOM Routine 03/13/2014 4:22 PM EST Cyanosis documented in this encounter Results * PVL TOM (03/13/2014 4:22 PM EST) Anatomical Region Laterality Modality Ultrasound 03/14/2014 8:30 AM EST Narrative 03/16/2014 8:10 AM EST Ankle-Arm Index Report [address] [address] [facility] Exam Date: 03/14/2014 08:30 Ordering Physician: HOMER GORDON ([id number]) Age: 18 Gender: F Exam Location: [facility] [place] Referring Physician: Homer Gordon MD : 1995 Ht (in): Wt (lb): CC: EHR CC: Junior Net Developer: Walker Hennessy RVT Procedure CPT: 21793 Indications: cyanosis ICD-9 Codes: 782.5 IMPRESSION A forearm to brachial index and digit #2 to brachial index was obtained bilaterally. PPG waveforms were obtained from the bilateral upper extremity digits pre and post ice bath immersion. Impression:. There was no evidence of hemodynamically significant upper extremity arterial disease before or immediately following cold immersion. [place] MD (Electronically Signed) Final Date: 16 March 2014 08:10 Procedure Note [place] MD - 03/16/2014 Ankle-Arm Index Report [address] [address] [facility] Exam Date: 03/14/2014 08:30 Ordering Physician:HOMER GORDON ([id number]) Age: 18 Gender: F Exam Location: [facility] Referring Physician:Homer Gordon MD : 1995 Ht (in): Wt (lb): CC: EHR CC: Junior Net Developer: Walker Hennessy RVT Procedure CPT: 30668 Indications: cyanosis ICD-9 Codes: 782.5 IMPRESSION A forearm to brachial index and digit #2 to brachial index was obtainedbilaterally. PPG waveforms were obtained from the bilateral upper extremity digits pre and post ice bath immersion. Impression:. There was no evidence of hemodynamically significant upper extremityarterial disease before or immediately following cold immersion. [place] MD (Electronically Signed) Final Date: 16 March 2014 08:10 Homer Gordon MD CV VASCULAR ORDERABLE S Final Result documented in this encounter Visit Diagnoses Diagnosis Cyanosis- Primary documented in this encounter Care Teams Philosophy Lecturer Relationship Specialty Start Date End Date Toshia Heller MD PCP - General 03/13/14 09/05/19 documented as of this encounter
--- OUTSIDE RECORDS SUMMARY | 2024-03-23 13:12 | XMS_ITS | Encounter Summary ---
Author Organization [facility] Health Care Address [address] [place] [address] Care Team Providers Care Corporate Events Director Name Role Phone Unavailable Primary Care Provider Unavailabl e Encounter Details Date Type Department Care Team (Late st Contact Info) Description 02/22/2012 Orders Only [facility] [address] [phone] Blanca Jacobs MD [address] [place] [address] Social History Tobacco Use Types Packs/Day Years [...] Procedure Name Priority Date/Time Associated Diagnosis Comments BUN/CR RATIO Routine 02/22/2012 1:25 PM EST ANION GAP Routine 02/22/2012 1:25 PM EST ALCOHOL PANEL Routine 02/22/2012 1:25 PM EST CREATININE Routine 02/22/2012 1:25 PM EST CBC W/ DIFFERENTIAL Routine 02/22/2012 1 :25 PM EST BUN Routine 02/22/2012 1:25 PM EST T3 Routine 02/22/2012 1:25 PM EST ALT Routine 02/22/2012 1:25 PM EST AST Routine 02/22/2012 1:25 PM EST TSH Routine 02/22/2012 1:25 PM EST T4, FREE Routine 02/22/2012 1:25 PM EST SODIUM Routine 02/22/2012 1:25 PM EST POTASSIUM Routine 02/22/2012 1:25 PM EST ALKALINE PHOSPHATASE Routine 02/22/2012 1:25 PM EST LIPASE Routine 02/22/2012 1:25 PM EST GAMMA GT Routine 02/22/2012 1:25 PM EST GLUCOSE, RANDOM Routine 02/22/2012 1:25 PM EST CHLORIDE Routine 02/22/2012 1:25 PM EST CO2, TOTAL Routine 02/22/2012 1:25 PM EST CALCIUM Routine 02/22/2012 1:25 PM EST BILIRUBIN, TOTAL Routine 02/22/2012 1:25 PM EST ACETAMINOPHEN LEVEL Routine 02/22/2012 1 :25 PM EST SALICYLATE LEVEL Routine 02/22/2012 1:25 PM EST , URINE Routine 02/22/2012 1:10 PM EST TOXICOLOGY SCREEN, URINE Routine 02/22/2012 1:10 PM EST URINALYSIS WITH MICROSCOPY Routine 02/22/2012 1:10 PM EST documented in this encounter Results * (ABNORMAL) CBC and differential (02/22/2012 1:25 PM EST) WBC 8.1 4.5 - 13.0 x10 9th/L [facility] RBC 4.77 4.10 - 5.10 x10 12th/L [facility] HGB 13.3 12.0 - 16.0 G/DL [facility] HCT 38.1 36.0 - 46.0 % [facility] MCV 80 78 - 102 FL [facility] MCH 28 25 - 35 PG [facility] MCHC 35 31 - 37 G/DL [facility] RDW 13.5 12.0 - 15.0 % [facility] MPV 6.9(L) 7.0 - 10.0 FL [facility] Platelet 197 150 - 440 x10 9th/L [facility] Absolute Neutrophils 5.3 2.0 - 7.5 x10 9th/L [facility] Absolute Lymphocytes 2.1 1.5 - 5.0 x10 9th/L [facility] Absolute Monocytes 0.4 0.2 - 0.8 x10 9th/L [facility] Absolute Eosinophils 0.2 0.0 - 0.4 x10 9th/L [facility] Absolute Basophils 0.0 0.0 - 0.1 x10 9th/L [facility] Large Unstained Cells 1 0 - 4 % [facility] 02/22/2012 1:25 PM EST us Blanca Jacobs MD LAB BLOOD ORDERABLES Final Res ult [facility] [address] [place] [address] * (ABNORMAL) TSH (02/22/2012 1:25 PM EST) TSH 4.55(H) 0.50 - 4.50 MICROIU/ML [facility] 02/22/2012 1:25 PM EST us Blanca Jacobs MD LAB BLOOD ORDERABLES Final Res ult Performing Organization Address [facility] Co de Phone Number [address] [address] * T3 (02/22/2012 1:25 PM EST) T3, Total 1.3 1.0 - 1.7 NG/ML [facility] 02/22/2012 1:25 PM EST us Blanca Jacobs MD LAB BLOOD ORDERABLES Final Res ult Performing Organization Address [facility]/[place] [address] * Alcohol Panel (02/22/2012 1:25 PM EST) Alcohol, Methyl Level NEGATIVE UNDEFINED MG/DL [facility] Alcohol, Ethyl NEGATIVE UNDEFINED MG/DL [facility] Alcohol, Isopropyl NEGATIVE UNDEFINED MG/DL [facility] Acetone, Bld NEGATIVE UNDEFINED MG/DL [facility] Ethylene Glycol Level NEGATIVE UNDEFINED MG/DL [facility] 02/22/2012 1:25 PM EST us Blanca Jacobs MD LAB BLOOD ORDERABLES Final Res ult Performing Organization Address [facility] Co de Phone Number [address] [address] * T4, Free (02/22/2012 1:25 PM EST) Free T4 1.29 0.80 - 2.00 NG/DL [facility] 02/22/2012 1:25 PM EST us Blanca Jacobs MD LAB BLOOD ORDERABLES Final Res ult Performing Organization Address City/[facility]/ZIP Co de Phone Number [address] [address] * Acetaminophen level (02/22/2012 1:25 PM EST) Acetaminophen Level <10 10 - 25 MCG/ML [facility] 02/22/2012 1:25 PM EST us Blanca Jacobs MD LAB BLOOD ORDERABLES Final Res ult Performing Organization Address City/[facility] Co de Phone Number [address] [address] * Salicylate level (02/22/2012 1:25 PM EST) Salicylate Lvl <10 0 - 250 MCG/ML [facility] 02/22/2012 1:25 PM EST us Blanca Jacobs MD LAB BLOOD ORDERABLES Final Res ult Performing Organization Address City/[facility] Co de Phone Number [address] [address] * Bilirubin, total (02/22/2012 1:25 PM EST) Total Bilirubin 0.5 0.0 - 1.2 MG/DL [facility] 02/22/2012 1:25 PM EST us Blanca Jacobs MD LAB BLOOD ORDERABLES Final Res ult Performing Organization Address City/[facility] Co de Phone Number [address] [address] * (ABNORMAL) Lipase Level (02/22/2012 1:25 PM EST) Lipase 275(H) 10 - 180 U/L [facility] 02/22/2012 1:25 PM EST us Blanca Jacobs MD LAB BLOOD ORDERABLES Final Res ult Performing Organization Address City/[facility]/ZIP Co de Phone Number [address] [address] * (ABNORMAL) Gamma GT (GGT) (02/22/2012 1:25 PM EST) GGT <10(L) 11 - 48 U/L [facility] 02/22/2012 1:25 PM EST us Blanca Jacobs MD LAB BLOOD ORDERABLES Final Res ult Performing Organization Address [facility] Co de Phone Number [address] [address] * (ABNORMAL) Alkaline Phosphatase (02/22/2012 1:25 PM EST) Alkaline Phosphatase 64(L) 70 - 230 U/L [facility] 02/22/2012 1:25 PM EST us Blanca Jacobs MD LAB BLOOD ORDERABLES Final Res ult Performing Organization Address [facility] Co de Phone Number [address] [address] * ALT (02/22/2012 1:25 PM EST) ALT 28 5 - 30 U/L [facility] 02/22/2012 1:25 PM EST us Blanca Jacobs MD LAB BLOOD ORDERABLES Final Res ult Performing Organization Address [facility] Co de Phone Number [address] [address] * AST (02/22/2012 1:25 PM EST) AST 23 5 - 30 U/L [facility] 02/22/2012 1:25 PM EST us Blanca Jacobs MD LAB BLOOD ORDERABLES Final Res ult Performing Organization Address City/[facility]/ZIP Co de Phone Number [address] [address] * Calcium (02/22/2012 1:25 PM EST) Calcium 9.3 8.5 - 10.2 MG/DL [facility] 02/22/2012 1:25 PM EST us Blanca Jacobs MD LAB BLOOD ORDERABLES Final Res ult Performing Organization Address City/[facility]/ZIP Co de Phone Number [address] [address] * Glucose, Random (02/22/2012 1:25 PM EST) Glucose 77 65 - 179 MG/DL [facility] 02/22/2012 1:25 PM EST us Blanca Jacobs MD LAB BLOOD ORDERABLES Final Res ult Performing Organization Address [facility] Co de Phone Number [address] [address] * Bun/Creatinine Ratio (02/22/2012 1:25 PM EST) BUN/Creatinine Ratio 19 UNDEFINED [facility] 02/22/2012 1:25 PM EST us Blanca Jacobs MD LAB BLOOD ORDERABLES Final Res ult Performing Organization Address City/[facility]/ZIP Co de Phone Number [address] [address] * Anion Gap (02/22/2012 1:25 PM EST) Anion Gap 10 9 - 15 MMOL/L [facility] 02/22/2012 1:25 PM EST us Blanca Jacobs MD LAB BLOOD ORDERABLES Final Res ult [address] [address] * Creatinine (02/22/2012 1:25 PM EST) Creatinine 0.59 0.30 - 0.90 MG/DL [facility] EST.GFR (MDRD) UNABLE TO CALCULATE GFR.BASED ON PATIENT AGE >=60 mL/min/1. 73m2 [facility] 02/22/2012 1:25 PM EST us Blanca Jacobs MD LAB BLOOD ORDERABLES Final Res ult Performing Organization Address City/[facility]/ZIP Co de Phone Number [address] [address] * BUN (02/22/2012 1:25 PM EST) BUN 11 7 - 21 MG/DL [facility] 02/22/2012 1:25 PM EST us Blanca Jacobs MD LAB BLOOD ORDERABLES Final Res ult [address] [address] * CO2 Level (02/22/2012 1:25 PM EST) CO2 25 22 - 30 MMOL/L [facility] 02/22/2012 1:25 PM EST us Blanca Jacobs MD LAB BLOOD ORDERABLES Final Res ult [address] [address] * Chloride (02/22/2012 1:25 PM EST) Chloride 107 98 - 107 MMOL/L [facility] 02/22/2012 1:25 PM EST us Blanca Jacobs MD LAB BLOOD ORDERABLES Final Res ult Performing Organization Address [facility]/ZIP Co de Phone Number [facility] [address] [place] [address] * Potassium Level (02/22/2012 1:25 PM EST) Potassium 4.1 3.4 - 4.7 MMOL/L [facility] 02/22/2012 1:25 PM EST Blanca Jacobs MD LAB BLOOD ORDERABLES Final Res ult Performing Organization Address [facility] Co de Phone Number [facility] [address] [place] [address] * Sodium (02/22/2012 1:25 PM EST) Sodium 142 135 - 145 MMOL/L [facility] 02/22/2012 1:25 PM EST Blanca Jacobs MD LAB BLOOD ORDERABLES Final Res ult Performing Organization Address [facility] Co de Phone Number [facility] [address] [place] [address] * Urinalysis (02/22/2012 1:10 PM EST) Color, UA Yellow [facility] Clarity, UA Clear [facility] Specific [place], UA 1.010 1.003 - 1.030 [facility] pH, UA 6.5 5.0 - 9.0 [facility] Leukocyte Esterase, UA NEGATIVE NEGATIVE [facility] Nitrite, UA NEGATIVE NEGATIVE [facility] Protein, UA NEGATIVE NEGATIVE [facility] Glucose, UA NEGATIVE NEGATIVE [facility] Ketones, UA NEGATIVE NEGATIVE [facility] Urobilinogen, UA 1 TRACE TO 1 MG/DL [facility] Bilirubin, UA NEGATIVE NEGATIVE [facility] Blood, UA NEGATIVE NEGATIVE [facility] WBC, UA 1 0 - 5 /HPF [facility] RBC, UA 1 0 - 4 /HPF [facility] Squam Epithel, UA <1 /HPF [facility] Mucus, UA [facility] 02/22/2012 1:10 PM EST us Blanca Jacobs MD URINE ORDERABLES Final Result Performing Organization Address City/[facility] Co de Phone Number [address] [address] * Toxicology Screen, Urine (02/22/2012 1:10 PM EST) Amphetamine Screen, Ur <500 ng/mL NOT DETECTED [facility] Barbiturate Screen, Ur <200 ng/mL NOT DETECTED [facility] Benzodiazepine Screen, Urine <200 ng/mL NOT DETECTED [facility] Cannabinoid Scrn, Ur <20 ng/mL NOT DETECTED [facility] Cocaine(Metab.)Sc reen, Urine <150 ng/mL NOT DETECTED [facility] Methadone Screen, Urine <300 ng/mL NOT DETECTED [facility] Opiate Scrn, Ur <300 ng/mL NOT DETECTED [facility] 02/22/2012 1:10 PM EST us Blanca Jacobs MD URINE ORDERABLES Final Result Performing Organization Address [facility] Co de Phone Number [address] [address] * Qualitative, Urine (02/22/2012 1:10 PM EST) Preg Test, Ur NEGATIVE NEGATIVE [facility] 02/22/2012 1:10 PM EST us Blanca Jacobs MD URINE ORDERABLES Final Result Performing Organization Address City/[facility]/ZIP Co de Phone Number [address] [address] documented in this encounter Visit Diagnoses Not on filedocumented in this encounter
--- OUTSIDE RECORDS SUMMARY | 2024-03-23 13:12 | XMS_ITS | Encounter Summary ---
Author Organization [facility] Address [address] [place] [id number] Phone [phone] Care Team Providers Care Turbine Measurements Engineer Name Role Phone Shkaira Santos MD Primary Care Provide r Reason for Visit * Reason Comments Sore Throat Fatigue Earache Pt c/o cough, sore t hroat, headache, fatigue, body ache x 11 days. Encounter Details Date Type Department Care Team (Late st Contact Info) Description 04/20/2021 8:00 AM EDT Office Visit [address] [place] [address] Winter Nicholas, CORNER CUTTER MACHINE OPERATOR [address] [place] [address] Acute recurrent maxillary sinusitis (Primary Dx); Recurrent acute suppurative otitis media of right ear without spontaneous rupture of tympanic membrane Social History Tobacco Use Types Packs/Day Years Used Date Smoking Tobacco: Never Smokeless Tobacco: Never Alcohol Use Standard Drinks/Week Comments Yes 0 (1 standard drink = 0.6 oz pur e alcohol) social Comments No Sex and Gender Information Value Date Recorded Sex Assigned at Not on file Legal Sex Female 12:58 PM EDT Gender Identity Not on file Sexual Orientation Not on file COVID-19 Exposure Response Date Recorded In the last month, have you been in contact with someone who was confirmed or suspected to have Coronavirus / COVID-19? No / Unsure 04/20/2021 8:08 AM EDT documented as of this encounter Last Filed Vital Signs Vital Sign Reading Time Taken Comments Blood Pressure 110/73 04/20/2021 8:22 AM EDT Pulse 84 04/20/2021 8:22 AM EDT Temperature 37 ??C (98.6 ??F) 04/20/2021 8:22 AM EDT Respiratory Rate 18 04/20/2021 8:22 AM EDT Oxygen Saturation 97% 04/20/2021 8:22 AM EDT Inhaled Oxygen Concentration - - Weight 109 kg (239 lb 9.6 oz) 04/20/2021 8:22 AM EDT Height 147.3 cm (4' 10) 04/20/2021 8:22 AM EDT Body Mass Index 50.08 04/20/2021 8:22 AM EDT documented in this encounter Patient Instructions * Patient Instructions* Winter Nicholas NP - 04/20/2021 8:39 AM EDT Rest- drink plenty of fluids- avoid any wind or water in the affected ear- you may take over the counter acetaminophen or ibuprofen for pain or fever as long as you have no drug allergies to those medications- the antibiotic and/or ear drops will start to relieve symptoms in about 24hrs- IF YOU BECOME WORSE, WITH HIGH FEVER, INCREASED PAIN, BLOODY EAR DRAINAGE GO TO THE ER otherwise follow up with your primary care provider in 2-3 days if not better * Attachments The following attachments cannot be sent through Care Everywhere. * Sinusitis Discharge Instructions, Adult (Albanian) documented in this encounter Progress Notes * Janelle Pham MA - 04/20/2021 8:00 AM EDT Pt c/o cough, sore throat, headache, fatigue, body ache x 11 days. * Winter Nicholas NP - 04/20/2021 8:00 AM EDT Subjective Patient ID: Linh Carvalho is a 25 y.o. female. Pt sts got sick on 04/09 with fever to 100.2 and cold sx. Better after 3-4 days . Then worse again. Now fever, sore throat, right ear pain, greens nasal dc. Mild cough , non prod. No coivd contacts or other sx. History provided by: Patient hourly sign language interpreter used: No Sore Throat This is a new problem. The current episode started 1 to 4 weeks ago. The problem has been graduallyworsening. The maximum temperature recorded prior to her arrival was 100.4 - 100.9 F. The pain is at a severity of 5/10. The pain is moderate. Associated symptoms include ear pain. Pertinent negatives include no abdominal pain, congestion, coughing, diarrhea, plugged ear sensation, shortness of breath, swollen glands or vomiting. She has had no exposure to strep or mono. She has tried acetaminophen, cool liquids and gargles for the symptoms. The treatment provided mild relief. Review of Systems Constitutional: Positive for fever. Negative for chills and fatigue. HENT: Positive for ear pain, postnasal drip, rhinorrhea, sinus pressure, sinus pain and sore throat. Negative for congestion. Eyes: Negative for discharge and redness. Respiratory: Negative for cough, chest tightness, shortness of breath and wheezing. Cardiovascular: Negative for chest pain. Gastrointestinal: Negative for abdominal pain, diarrhea, nausea and vomiting. Musculoskeletal: Negative for arthralgias and myalgias. Skin: Negative for rash. Neurological: Negative for dizziness, weakness and light-headedness. Psychiatric/Behavioral: Negative for sleep disturbance. Patient History Allergies: Allergies Allergen Reactions Cephalosporins Rash Sulfa Antibiotics Anaphylaxis Cefuroxime Rash Cephalexin Rash Past Medical History: Diagnosis Date Asthma Disease of thyroid gland PCOS (polycystic ovarian syndrome) Past Surgical History: Procedure Laterality Date KNEE SURGERY Bilateral TONSILLECTOMY Social History Socioeconomic History Marital status: Single Spouse name: Not on file Number of children: Not on file Years of education: Not on file Highest education level: Not on file Occupational History Not on file Tobacco Use Smoking status: Never Smoker Smokeless tobacco: Never Used Substance and Sexual Activity Alcohol use: Yes Comment: social Drug use: Not on file Sexual activity: Yes Other Topics Concern Not on file Social History Narrative Not on file No family history on file. Current Outpatient Medications on File Prior to Visit Medication Sig Dispense Refill clonazePAM (KlonoPIN) 0.5 MG tablet clonazepam 0.5 mg tablet fluticasone-vilanterol (BREO ELIPTA) 100-25 MCG/INH inhaler Inhale 1 puff 1 (one) time each day. lamoTRIgine (LaMICtal) 100 MG tablet lamotrigine 100 mg tablet metFORMIN XR (Glucophage-XR) 500 MG 24 hr tablet metformin ER 500 mg tablet,extended release 24 hr ondansetron (Zofran) 4 MG tablet ondansetron HCl 4 mg tablet thyroid ([place] Thyroid) 90 MG tablet [place] Thyroid 90 mg tablet traZODone (Desyrel) 100 MG tablet trazodone 100 mg tablet Advair HFA 115-21 MCG/ACT inhaler albuterol (2.5 MG/3ML) 0.083% nebulizer solution albuterol sulfate 2.5 mg/3 mL (0.083 %) solution for nebulization escitalopram (Lexapro) 10 MG tablet escitalopram 10 mg tablet norethindrone-ethinyl estradiol (June02/25) 1-20 MG-MCG tablet Take 1 tablet by mouth 1 (one) time each day. propranolol (Inderal) 80 MG tablet Take 80 mg by mouth. No current facility-administered medications on file prior to visit. Objective Vitals: 04/20/21 0822 BP: 110/73 BP Location: Left arm Patient Position: Sitting BP Cuff Size: Large adult Pulse: 84 Resp: 18 Temp: 37 ??C (98.6 ??F) TempSrc: Oral SpO2: 97% Weight: 109 kg Height: 4' 10 No exam data present Physical Exam Vitals and nursing note reviewed. Constitutional: General: She is not in acute distress. Appearance: Normal appearance. She is normal weight. She is not ill-appearing. HENT: Head: Normocephalic. Right Ear: Ear canal and external ear normal. Tenderness present. A middle ear effusion is present.There is no impacted cerumen. Tympanic membrane is injected, erythematous and bulging. Tympanic membrane is not perforated or retracted. Left Ear: Tympanic membrane, ear canal and external ear normal. Nose: No congestion or rhinorrhea. Right Nostril: No foreign body or epistaxis. Left Nostril: No foreign body or epistaxis. Right Turbinates: Not enlarged, swollen or pale. Left Turbinates: Not enlarged, swollen or pale. Right Sinus: No maxillary sinus tenderness or frontal sinus tenderness. Left Sinus: No maxillary sinus tenderness or frontal sinus tenderness. Mouth/Throat: Lips: Kane. Mouth: Mucous membranes are moist. Pharynx: Posterior oropharyngeal erythema present. No pharyngeal swelling. Tonsils: No tonsillar exudate. Comments: Pnd with green mucous Eyes: Conjunctiva/sclera: Conjunctivae normal. Cardiovascular: Rate and Rhythm: Normal rate and regular rhythm. Heart sounds: Normal heart sounds. Pulmonary: Effort: Pulmonary effort is normal. Breath sounds: Normal breath sounds. Musculoskeletal: Cervical back: Normal range of motion and neck supple. Skin: General: Skin is warm and dry. Capillary Refill: Capillary refill takes less than 2 seconds. Neurological: Mental Status: She is alert. No results found for this visit on 04/20/21. Procedures MDM: 1 Acute, uncomplicated illness or injury Assessment requiring historian other than patient: No Independent visualization of image, tracing, or test: No Discussion of management with another provider: No Risk:: Moderate Assessment/Plan Diagnoses and all orders for this visit: Acute recurrent maxillary sinusitis - amoxicillin-clavulanate (Augmentin) 875-125 MG tablet; Take 1 tablet by mouth in the morning and 1 tablet in the evening. Do all this for 10 days. Recurrent acute suppurative otitis media of right ear without spontaneous rupture of tympanic membrane - amoxicillin-clavulanate (Augmentin) 875-125 MG tablet; Take 1 tablet by mouth in the morning and 1 tablet in the evening. Do all this for 10 days. Disposition Status: Home Progress note signed by Winter Nicholas NP on 04/20/21 at 8:48 AM documented in this encounter Plan of Treatment Not on file documented as of this encounter Visit Diagnoses Diagnosis Acute recurrent maxillary sinusitis- Primary Recurrent acute suppurative otitis media of right ear without spontaneous rupture of tympanic membrane documented in this encounter Care Teams Turbine Measurements Engineer Relationship Specialty Start Date End Date Shakira Santos MD [address] [place] [address] PCP - General Internal Medicine 04/20/21 documented as of this encounter
--- OUTSIDE RECORDS SUMMARY | 2024-03-23 13:12 | XMS_ITS | Encounter Summary ---
Author Organization [facility] Address [address] [place] [address] Care Team Providers Care Canoe Maker Name Role Phone Toshia Heller MD Primary Care [facility] Reason for Visit * Auth/Cert Specialty Diagnoses / Procedures Referred By Contac t Referred To Contact Diagnoses RIGHT UPPER QUADRANT PAIN Procedures RI LAP,CHOLECYSTECTOMY LAPAROSCOPIC CHOLECYSTECTOMY Referral ID Status Reason Start Date Expiration Date Visits Re quested Visits Authorized [id number] 1 1 Encounter Details Date Type Department Care Team (Late st Contact Info) Description 06/15/2017 7:53 AM EDT Anesthesia Event PERIOP ZAY[facility] [address] [place] [address] Twila Chris MD [address] [place] [address] Gloria Long SRNA Staffing Response Team Anesthesia Record Procedure Summary Procedure Name Responsible Anesthesiologist Anesthesia Start Time Anesthesia Stop Time LAPAROSCOPIC CHOLECYSTECTOMY Twila Chris MD 06/15/17 0753 06/15/17 0916 Events Date Time Event Comment 06/15/2017 0751 0753 An Start 0802 Pt in Room 0802 Preinduction Verification Pr e-Induction Verification Details: Patient name, , MRN, procedure, site/side, positioning, and allergies; availability of implant(s) or special equipment; and status of perioperative antibiotic(s) were verified with nursing, surgery and anesthesia. 0820 An Induction 0822 An Intubation 0825 Pat Release 0834 PreIncision Timeout Pre-Inci salas Time Out Details: Patient name, procedure, site/side, and positioning; antibiotic(s) status; and surgical prep status (dry) were verified with nursing, surgery attending, and anesthesia. 0835 Incision 0907 Surgery End 0908 An Extubation 0913 Pt out of Room 0915 Handoff to RN I completed my SBAR handoff to the receiving nurse in the appropriate post-anesthesia recovery environment in accordance with the procedure. 0916 An End Meds Name Total midazolam (VERSED) injection 1 mg/mL 2 m g fentaNYL (PF)(SUBLIMAZE) IV 50 mcg/mL 15 0 mcg lidocaine IV 20 mg/mL 100 mg propofol (DIPRIVAN) IV 10 mg/mL 200 mg succinylcholine (ANECTINE) 20 mg/mL syri nge/vial 180 mg rocuronium 25 mg dexamethasone (DECADRON) IV 4 mg/mL 4 mg glycopyrrolate (ROBINUL) IV 0.2 mg/mL 0. 5 mg ondansetron (ZOFRAN) IV 2 mg/mL 4 mg neostigmine (PROSTIGMINE) IV 1 mg/mL 3.5 mg phenylephrine in 0.9% NaCl(PF) IV 80 mcg /mL 160 mcg diphenhydrAMINE (BENADRYL) injection 12. 5 mg white petrolatum-mineral oil (LUBRIFRESH PM) ophth ointment 1 application. clindamycin (CLEOCIN) IV 900 mg lactated Ringers infusion 800 mL * Agents Name O2 Air Sevo ET * Blood No blood administrations on file. Lines, Drains, and Airways Type Details Placement Removal Surgical Site 06/15/17828; Abdo men; Right; UPPER SUPERIORDERMABOND 06/15/17828 by Markell Howard RN Surgical Site 06/15/17828; Abdo men; Right; UPPER INFERIORDERMABOND 06/15/17828 by Markell Howard RN Surgical Site 06/15/17; 08; Abdo men; Mid; UPPER DERMABOND 06/15/17828 by Markell Howard RN Surgical Site 06/15/17; 29; Umbi licus; PERIUMBILICALDERMABOND 06/15/17828 by Markell Howard RN PIV Placement Date: 06/06 ; Placement Time: 0737; Size (Gauge): 20 G; Orientation: Left; Location: Hand; Site Prep: Chlorhexidine ; Local Anesthetic: Injectable; Inserted by: charo; Insertion attempts: 1; Patient Tolerance: Tolerated well; Removal Date: 01/09/18 (Intravenous device is >30 days old, automatically documente.); Removal Time: 1554 (Intravenous device is >30 days old, automatically documente.) 06/15/17 0737 by Ayse Mooney RN 01/09/18 1554 by Discharge Provider, Automatic ETT Placement Date: 06/06 ; Placement Time: 0822; Pre O2/Mask induction: Preoxygenated with 100% O2 by face mask; Mask ventilation: easy; Size: 7; Secured at: 22 cm; ETT Type: Oral; Cuffed: Cuffed; Insertion attempts: 1; View: I; Blade: MAC 3; Type of view: direct laryngoscopy; Intubation Trauma: Atraumatic Placement; Placement Assessment: Equal Bilateral Breath Sounds, Positive ETCO2; Placed By: RICHELLE; Removal Date: 06/15/17; Removal Time: 0908 06/15/17 0822 by Gloria Long SRNA 06/15/17 0908 by Gloria Long SRNA documented in this encounter Social History Tobacco Use Types Packs/Day [...] on file documented as of this encounter OR Notes * Anesthesia Postprocedure Evaluation - Twila Chris MD - 06/15/2017 4:16 PM EDT Patient: Linh Carvalho Scheduled: Procedure(s): LAPAROSCOPIC CHOLECYSTECTOMY Anesthesia Start Date/Time: 06/15/17 0753 Procedure: LAPAROSCOPIC CHOLECYSTECTOMY (N/A ) Anesthesia type: general Pre-op diagnosis: RIGHT UPPER QUADRANT PAIN Location: OR [facility] / OR [facility]DA Surgeon: New Felton MD Final Anesthesia Type: general Anesthesia Staff: Anesthesiologist: Twila Chris MD Student Nurse Slice Plug Cutter Operator Helper: RICHELLE Velasco Anesthesia Provider: Alonso Ybarra CRNA Airways Type Details Placement Removal ETT Placement Date: 06/15/17; Placement Time: 821; Pre O2/Mask induction: Preoxygenated with 100% O2 by face mask; Mask ventilation: easy; Size: 7; Secured at: 22 cm; ETT Type: Oral; Cuffed: Cuffed;Insertion attempts: 1; View: I; Blade: MAC 3; Type of view: direct laryngoscopy; Intubation Trauma:Atraumatic Placement; Placement Assessment: Equal Bilateral Breath Sounds, Positive ETCO2; Placed By: SRNA; Removal Date: 06/15/17; Removal Time: 90706/15/17821 by RICHELLE Velasco 06/15/17907 by RICHELLE Velasco Patient location: PACU Last vitals: Last Documented Value for each Vital Most Recent Value BP 119/68 filed at 06/15/2017 1145 Heart Rate 90 filed at 06/15/2017 1145 Temp 36.6 ??C (97.9 ??F) filed at 06/15/2017 1145 Resp 18 filed at 06/15/2017 1145 SpO2 100 % filed at 06/15/2017 1145 Post vital signs: stable Level of consciousness: awake, alert and oriented PONV present?: No Post-anesthesia pain: adequate analgesia Airway patency: patent Respiratory: unassisted Cardiovascular: stable and blood pressure at baseline Hydration: euvolemic Anesthetic complications: no Twila Chris 06/15/17 * Anesthesia Preprocedure Evaluation - Sunita Pulido MD - 06/15/2017 7:06 AM EDT Procedure Information: Date/Time: 06/15/17 0800 Procedure: LAPAROSCOPIC CHOLECYSTECTOMY (N/A ) Anesthesia type: General Pre-op diagnosis: RIGHT UPPER QUADRANT PAIN Location: [facility] / OR Z[facility]DA Surgeon: New Felton MD Anesthesia Evaluation No history of anesthetic complications (mom has PONV) Airway Mallampati: II TM distance: >3 FB Neck ROM: full Mouth Opening: normal Dental Pulmonary - normal exam (+) asthma (used albuterol 2 days ago), Cardiovascular - negative ROS and normal exam Neuro/Psych (+) headaches (migraines), psychiatric history (anxiety) Comments: ADHD GI/Hepatic/Renal (+) GERD, Endo/Other (+) hypothyroidism, , Comments: IgA deficiency Low ferritin, but she has a normal H/H per mom Abdominal HEENT Patient current smoker?: No Anesthesia Plan ASA 2 Anesthetic: General Standard lines and monitors. (UPT pending) Anesthesia plan and risk discussed with patient and mother;. Plan discussed with anesthesiologist and ETHYLBENZENE OXIDIZER. Relevant Problems No active problems are marked relevant to this note. documented in this encounter Plan of Treatment Not on file documented as of this encounter Visit Diagnoses Not on filedocumented in this encounter Administered Medications Inactive Administered Medications - up to 3 most recent administrations Medication Order MAR Action Action Date Dose Rate Site clindamycin (CLEOCIN) injection As needed (once a day), Starting on Cheri 06/15/17 at 0833, Anesthesia Intra-op, Routine Given 06/15/2017 8:33 AM EDT 900 mg dexamethasone (DECADRON) injection As needed (once a day), Starting on Cheri 06/15/17 at 0834, Anesthesia Intra-op, Routine Given 06/15/2017 8:34 AM EDT 4 mg diphenhydrAMINE (BENADRYL) injection Intravenous, As needed (once a day), Starting on Cheri 06/15/17 at 0834, Anesthesia Intra-op, Routine Given 06/15/2017 8:34 AM EDT 12.5 mg fentaNYL (PF) (SUBLIMAZE) injection As needed (once a day), pain,severe (7-10), Starting on Cheri 06/15/17 at 0808, Anesthesia Intra-op, Routine Given 06/15/2017 9:05 AM EDT 25 mcg Given 06/15/2017 9:04 AM EDT 25 mcg Given 06/15/2017 8:08 AM EDT 100 mcg glycopyrrolate (ROBINUL) injection As needed (once a day), Starting on Cheri 06/15/17 at 0901, Anesthesia Intra-op, Routine Given 06/15/2017 9:0 1 AM EDT 0.5 mg lidocaine (PF) (XYLOCAINE) injection As needed (once a day), Starting on [facility] 06/15/17 at 0820, Anesthesia Intra-op, Routine Given 06/15/2017 8:2 0 AM EDT 100 mg midazolam (VERSED) injection Intravenous, As needed (once a day), anxiety, Starting on [facility] 06/15/17 at 0802, Anesthesia Intra-op, Routine Given 06/15/2017 8:02 AM EDT 2 mg neostigmine (PROSTIGMINE) injection As needed (once a day), Starting on [facility] 06/15/17 at 0901, Anesthesia Intra-op, Routine Given 06/15/2017 9:0 1 AM EDT 3.5 mg ondansetron (ZOFRAN) injection As needed (once a day), nausea, vomiting, Starting on [facility] 06/15/17 at 0857, Anesthesia Intra-op, Routine Given 06/15/2017 8:57 AM EDT 4 mg phenylephrine HCl in 0.9% NaCl 0.8 mg/10 mL (80 mcg/mL) injection Syrg As needed (once a day), Starting on [facility] 06/15/17 at 0833, Anesthesia Intra-op, Routine Given 06/15/2017 8:4 8 AM EDT 80 mcg Given 06/15/2017 8:33 AM EDT 80 mcg propofol (DIPRIVAN) injection As needed (once a day), Starting on [facility] 06/15/17 at 0820, Anesthesia Intra-op, Routine Given 06/15/2017 8:2 1 AM EDT 50 mg Given 06/15/2017 8:20 AM EDT 150 mg rocuronium 50 mg/5 mL (10 mg/mL) syringe Intravenous, As needed (once a day), Starting on [facility] 06/15/17 at 0820, Anesthesia Intra-op Given 06/15/2017 8:31 AM EDT 20 mg Given 06/15/2017 8:20 AM EDT 5 mg succinylcholine chloride (ANECTINE) injection As needed (once a day), Starting on [facility] 06/15/17 at 0820, Anesthesia Intra-op, Routine Given 06/15/2017 8:21 AM EDT 180 mg white petrolatum-mineral oil (LUBRIFRESH PM) 83-15 % ophthalmic ointment Both Eyes, As needed (once a day), Starting on Cheri 06/15/17 at 0825, Anesthesia Intra-op Given 06/15/2017 8:25 AM EDT 1 application. documented in this encounter Care Teams Canoe Maker Relationship Specialty Start Date End Date Tohsia Heller MD PCP - General 03/13/14 09/05/19 documented as of this encounter
--- OUTSIDE RECORDS SUMMARY | 2024-03-23 13:12 | XMS_ITS | Encounter Summary ---
Author Organization [facility] Address [address] [place] [address] Phone [phone] Care Team Providers Care Fire Fighters Dispatcher Name Role Phone Shakira Santos MD Primary Care Provide r Encounter Details Date Type Department Care Team (Latest Contact Info) Description 11/19/2023 Travel Social History Tobacco Use Types Packs/Day [...] on filedocumented in this encounter Care Teams Fire Fighters Dispatcher Relationship Specialty Start Date End Date Shakira Santos MD [address] [place] [address] PCP - General Internal Medicine 04/20/21 documented as of this encounter
--- OUTSIDE RECORDS SUMMARY | 2024-03-23 13:12 | XMS_ITS | Encounter Summary ---
Author Organization [facility] Address [address] [place] [address] Phone [phone] Care Team Providers Care Aerospace Assembler Name Role Phone Shakira Santos MD Primary Care Provide r Reason for Visit * Reason Comments Cough Encounter Details Date Type Department Care Team (Late st Contact Info) Description 11/19/2023 10:45 AM EDT Office Visit Osvaldo Almodovar N DOROTHEA [facility]RELL[facility] [place] [address] Koko hO, ASHLEY [address] [place] [address] Bronchopneumonia (Primary Dx); Cough; Bacterial URI; Medication refill Social History Tobacco Use Types Packs/Day Years [...] Sign Reading Time Taken Comments Blood Pressure 121/81 11/19/2023 11:14 AM EDT Pulse 99 11/19/2023 11:14 AM EDT Temperature 39.5 ??C (103.1 ??F) 11/19/2023 11:14 AM EDT Respiratory Rate 20 11/19/2023 11:14 AM EDT Oxygen Saturation 97% 11/19/2023 11:14 AM EDT Inhaled Oxygen Concentration - - Weight 99.3 kg (219 lb) 11/19/2023 11:14 AM EDT Height 147.3 cm (4' 10) 11/19/2023 11:14 AM EDT Body Mass Index 45.77 11/19/2023 11:14 AM EDT documented in this encounter Patient Instructions * Patient Instructions* ASHLEY Collazo - 11/19/2023 10:45 AM EDT Thank you Linh Carvalho for [facility]. We appreciate the opportunity to care for you and your family. Bronchitis is inflammation of the airways causing a cough, either with or without sputum. It is usually from a viral illness and resolves with time. Antibiotics will usually not help and can even harm you by decreasing your ability to fight infections by several months. The cough will usually resolve within a few weeks but can last for several months, average is 18 days. The cough can produce musculoskeletal pain from exercising the muscles in your ribs. Avoiding smoke, throat lozenges, locallysourced honey, hot tea, and sleeping with your head elevated may be helpful. Tylenol (unless contraindicated) may help with the chest muscle discomfort. Follow-up is needed if you get a fever (100.4 or over), coughing blood, difficulty breathing, chestpain, confusion, wheezing, a whoop sound with cough, or any new worrisome symptom. COMPLETE ALL ANTIBIOTICS or STEROIDS as PRESCRIBED. DO NOT STOP TAKING THEM JUST BECAUSE YOU FEEL BETTER. Stopping antibiotics too soon so may make future infections harder or impossible to treat. Taking antibiotics may cause a yeast infection. Eating yogurt with active cultures or drinking Kefir may help prevent this. Taking an antibiotic or steroid decreases your ability to fight off infectionsfor several months. Wash hands often, keep hands away from face, eat healthy foods, and avoid people who are sick. * Attachments The following attachments cannot be sent through Care Everywhere. * Acute bronchitis (Liberian) * Community-Acquired Pneumonia Discharge Instructions, Adult (Liberian) documented in this encounter Progress Notes * Melba Bowen MA - 11/19/2023 10:45 AM EDT Linh Carvalho is a 28 y.o. female Pt reports cough, fever, body aches for 4 days. Fever of 104 for 3 days. Pt has not taken medication at home. * ASHLEY Collazo - 11/19/2023 10:45 AM EDT Subjective Patient ID: Linh Carvalho is a 28 y.o. female. Patient presents for evaluation of headache, sleep disturbances, congestion, cough, wheezing, body aches and rhinorrhea for the last 3-4 days. Tylenol brings down the fever for 2 hours then it return. Denies nausea, vomiting or diarrhea. No shortens of breath. Fever This is a new problem. The current episode started in the past 7 days. The problem occurs constantly. The problem has been waxing and waning. The maximum temperature noted was 103 to 103.9 F. The temperature was taken using an oral thermometer. Associated symptoms include abdominal pain, chest pain, congestion, coughing, ear pain, headaches, muscle aches, sleepiness and wheezing. Pertinent negatives include no diarrhea, nausea, rash, sore throat, urinary pain or vomiting. Risk factors: hx of cancer and sick contacts Risk factors: no contaminated food, no contaminated water, no immunosuppression, no occupational exposure, no recent sickness and no recent travel Cough Associated symptoms include chest pain, chills, ear pain, a fever, headaches, rhinorrhea and wheezing. Pertinent negatives include no myalgias, postnasal drip, rash, sore throat or shortness of breath. Review of Systems Constitutional: Positive for chills and fever. Negative for fatigue. HENT: Positive for congestion, ear pain and rhinorrhea. Negative for dental problem, ear discharge,mouth sores, postnasal drip, sinus pressure, sinus pain, sneezing and sore throat. Eyes: Negative for pain, itching and visual disturbance. Respiratory: Positive for cough and wheezing. Negative for shortness of breath. Cardiovascular: Positive for chest pain. Negative for palpitations. Gastrointestinal: Positive for abdominal pain. Negative for constipation, diarrhea, nausea and vomiting. Endocrine: Negative for polydipsia. Genitourinary: Negative for dysuria. Musculoskeletal: Negative for myalgias. Skin: Negative for rash. Neurological: Positive for headaches. Patient History Allergies: Allergies Allergen Reactions Cephalosporins Rash Sulfa Antibiotics Anaphylaxis Cefuroxime Rash Cephalexin Rash Past Medical History: Diagnosis Date Asthma Disease of thyroid gland PCOS (polycystic ovarian syndrome) Past Surgical History: Procedure Laterality Date CHOLECYSTECTOMY KNEE SURGERY Bilateral TONSILLECTOMY Social History Socioeconomic History Marital status: Spouse name: Not on file Number of [...] Dispense Refill Advair HFA 115-21 MCG/ACT inhaler clonazePAM (KlonoPIN) 0.5 MG tablet clonazepam 0.5 [...] tablet Take 80 mg by mouth. thyroid ([place] Thyroid) 90 MG tablet [place] Thyroid 90 mg tablet traZODone (Desyrel) 100 MG tablet trazodone 100 mg tablet [DISCONTINUED] albuterol (2.5 MG/3ML) 0.083% nebulizer solution albuterol sulfate 2.5 mg/3 mL (0.083 %) solution for nebulization No current facility-administered medications on file prior to visit. Objective Vitals: 11/19/23 1114 BP: 121/81 Pulse: 99 Resp: 20 Temp: (!) 39.5 ??C (103.1 ??F) SpO2: 97% Weight: 99.3 kg Height: 4' 10 PainSc: 4 LMP: 11/01/2023 LMP date is Approximate OBGYN/ Status: Having periods No results found. Physical Exam Vitals and nursing note reviewed. Constitutional: General: She is not in acute distress. Appearance: She is ill-appearing. She is not diaphoretic. HENT: Head: Normocephalic. Right Ear: Hearing and tympanic membrane normal. Left Ear: Hearing and tympanic membrane normal. Nose: Mucosal edema, congestion and rhinorrhea present. Rhinorrhea is clear. Right Sinus: No maxillary sinus tenderness or frontal sinus tenderness. Left Sinus: No maxillary sinus tenderness or frontal sinus tenderness. Mouth/Throat: Lips: [place]. Pharynx: Posterior oropharyngeal erythema present. No pharyngeal swelling. Tonsils: No tonsillar exudate. Eyes: General: No scleral icterus. Conjunctiva/sclera: Conjunctivae normal. Cardiovascular: Rate and Rhythm: Normal rate and regular rhythm. Heart sounds: Normal heart sounds. No murmur heard. No friction rub. No gallop. Pulmonary: Effort: Pulmonary effort is normal. Breath sounds: Examination of the right-middle field reveals wheezing. Examination of the right-lower field reveals wheezing. Wheezing present. No rhonchi or rales. Abdominal: General: Bowel sounds are normal. Palpations: Abdomen is soft. Tenderness: There is no abdominal tenderness. Musculoskeletal: General: Normal range of motion. Cervical back: Normal range of motion and neck supple. Lymphadenopathy: Cervical: No cervical adenopathy. Skin: General: Skin is warm and dry. Neurological: Mental Status: She is alert and oriented to person, place, and time. Psychiatric: Mood and Affect: Mood normal. Results for orders placed or performed in visit on 11/19/23 XR chest 2 views Narrative Examination Description: Chest xray, frontal and lateral views Comparisons: None provided. Findings The cardiomediastinal silhouette is within normal limits. The lungs are clear. There are subtle focal lung opacities at the right lung base in the left upperlung. No pleural effusions are seen. The tips of the lung apices are off the [id number]. The soft tissue and osseous structures appear unremarkable. Impression There are bilateral lung opacities, compatible with pneumonia. Short interval follow-up may be helpful to ensure resolution. RAPID INFLUENZA MCKESSON Component Result Rapid Influenza A Ag Negative Rapid Influenza B Ag Negative Internal Dry Roaster Pass Quickvue Covid 19 Antigen POCT Component Result Rapid Covid Negative Internal Dry [place] Pass POCT , urine manually resulted Component Result Preg Test, Ur Negative Internal Dry [place] POCT urinalysis dipstick manually resulted Component Result Color, UA Dark (A) Clarity, UA Cloudy (A) Glucose, UA Negative Bilirubin, UA 1+ (A) Ketones, UA Negative Spec Grav, UA 1.010 Blood, UA Negative pH, UA 7.5 Protein, UA 1+ (A) Urobilinogen, UA Negative Leukocytes, UA Trace (A) Nitrite, UA Negative Procedures MDM: Review of any test results: Three+ Risk:: Moderate Assessment/Plan Diagnoses and all orders for this visit: Bronchopneumonia - POCT , urine manually resulted - POCT urinalysis dipstick manually resulted - amoxicillin-clavulanate (Augmentin) 875-125 MG tablet; Take 1 tablet by mouth in the morning and 1 tablet in the evening. Do all this for 7 days. - albuterol 108 (90 Base) MCG/ACT inhaler; Inhale 2 puffs every 6 (six) hours if needed for wheezing. - albuterol (2.5 MG/3ML) 0.083% nebulizer solution; Take 3 mL (2.5 mg total) by nebulization every 6 (six) hours if needed for wheezing. Cough - POCT RAPID INFLUENZA MCKESSON - Quickvue Covid 19 Antigen POCT - XR chest 2 views Bacterial URI - wvoyarfzbmlnabf-xuciiircwptansj-SG 30-2-10 MG/5ML syrup; Take 5 mL by mouth 4 (four) times a day if needed for allergies for up to 10 days. Medication refill - albuterol (2.5 MG/3ML) 0.083% nebulizer solution; Take 3 mL (2.5 mg total) by nebulization every 6 (six) hours if needed for wheezing. Disposition Status: Home Progress note signed by ASHLEY Collazo on 11/19/23 at 3:18 PM documented in this encounter Plan of Treatment Not on file documented as of this encounter Procedures Procedure Name Priority Date/Time Associated Diagnosis Comments XR CHEST 2 VIEWS Routine 11/19/2023 12:2 0 PM EDT Cough POCT URINALYSIS DIPSTICK Routine 11/19/2023 12:02 PM EDT Bronchopneumonia POCT , URINE Routine 11/19/2023 12:01 PM EDT Bronchopneumonia POCT QUICKVUE COVID ANTIGEN TEST Routine 11/19/2023 11:31 AM EDT Cough POCT INFLUENZA A/B MCKESSON Routine 11/19/2023 11:30 AM EDT Cough documented in this encounter Results * XR chest 2 views (11/19/2023 12:20 PM EDT) Anatomical Region Laterality Modality Chest Radiographic Iveth ging 11/19/2023 2:00 PM EDT Impressions 11/19/2023 2:00 PM EDT There are bilateral lung opacities, compatible with pneumonia. Short interval follow-up may be helpful to ensure resolution. Narrative 11/19/2023 2:00 PM EDT Examination Description: Chest xray, frontal and lateral views Comparisons: None provided. ?? Findings The cardiomediastinal silhouette is within normal limits. The lungs are clear. There are subtle focal lung opacities at the right lung base in the left upper lung. No pleural effusions are seen. The tips of the lung apices are off the [id number]. The soft tissue and osseous structures appear unremarkable. Procedure Note Reading, Radiology - 11/19/2023 Examination Description: Chest xray, frontal and lateral views Comparisons: None provided. Findings The cardiomediastinal silhouette is within normal limits. The lungs are clear. There are subtle focal lung opacities at the rightlung base in the left upper lung. No pleural effusions are seen. The tips of the lung apices are off the [id number]. The soft tissue and osseous structures appear unremarkable. IMPRESSION: There are bilateral lung opacities, compatible with pneumonia. Shortinterval follow-up may be helpful to ensure resolution. Koko RAMIREZ IMG XR PROCEDURES Final Result * (ABNORMAL) POCT urinalysis dipstick manually resulted (11/19/2023 12:02 PM EDT) Color, UA Dark(A) Green, Yellow, Straw, Clear Clarity, UA Cloudy(A) Clear Glucose, UA Negative Negative, Trace Bilirubin, UA 1+(A) Negative Ketones, UA Negative Negative Spec Grav, UA 1.010 1.010, 1.015, 1.020, 1.025, Unable to interpret due to interfering substance Blood, UA Negative Negative pH, UA 7.5 5.0, 5.5, 6.0, 6.5, 7.0, 7.5, 8.0, 4.5 Protein, UA 1+(A) Negative Urobilinogen, UA Negative Negative Leukocytes, UA Trace(A) Negative Nitrite, UA Negative Negative Urine 11/19/2023 12:0 2 PM EDT Koko RAMIREZ POINT OF CARE TEST ENTER/EDIT ORDERABLES Final Result * POCT , urine manually resulted (11/19/2023 12:01 PM EDT) Preg Test, Ur Negative Negative Internal Dry Roaster Pass Pass Urine 11/19/2023 12:0 1 PM EDT Koko RAMIREZ POINT OF CARE TEST ENTER/EDIT ORDERABLES Final Result * Quickvue Covid 19 Antigen POCT (11/19/2023 11:31 AM EDT) Rapid Covid Negative Negative, Indeterminate Internal Dry [place] Pass Swab 11/19/2023 11:3 1 AM EDT Koko Oh PA POINT OF CARE TEST ENTER/EDIT ORDERABLES Final Result * POCT RAPID INFLUENZA MCKESSON (11/19/2023 11:30 AM EDT) Rapid Influenza A Ag Negative Negative, Indeterminate Rapid Influenza B Ag Negative Negative, Indeterminate Internal Dry [place] Pass Swab 11/19/2023 11:3 0 AM EDT Koko RAMIREZ POINT OF CARE TEST ENTER/EDIT ORDERABLES Final Result documented in this encounter Visit Diagnoses Diagnosis Bronchopneumonia- Primary Bronchopneumonia, organism unspecified Cough Bacterial URI Medication refill Issue of repeat prescriptions documented in this encounter Care Teams Aerospace Assembler Relationship Specialty Start Date End Date Shakira Santos MD [address] [place] [address] PCP - General Internal Medicine 04/20/21 documented as of this encounter
--- OUTSIDE RECORDS SUMMARY | 2024-03-23 13:12 | XMS_ITS | Clinical Summary ---
Author Organization [facility] Address [address] [place] [phone] Phone [phone] Care Team Providers Care Woolen Suiting Shrinker Name Role Phone Shakira Santos MD Primary Care Provide r Allergies Active Allergy Reactions Criticality Noted Date Comments Cefuroxime Rash Low 04/20/2021 Cephalexin Rash Low 04/20/2021 Cephalosporins Rash High 03/07/2014 Sulfa Antibiotics Anaphylaxis High 03/07/2014 Medications clonazePAM (KlonoPIN) 0.5 MG tablet clonazepam 0.5 mg tablet 3 Active escitalopram (Lexapro) 10 MG tablet escitalopram 10 mg tablet Active fluticasone-moe anterol (BREO ELIPTA) 100-25 MCG/INH inhaler Inhale 1 puff 1 (one) time each day. 6 Active Advair HFA 115-21 MCG/ACT inhaler 1 Active lamoTRIgine (LaMICtal) 100 MG tablet lamotrigine 100 mg tablet 0 Active metFORMIN XR (Glucophage-XR) 500 MG 24 hr tablet metformin ER 500 mg tablet,extended release 24 hr 2 Active ondansetron (Zofran) 4 MG tablet ondansetron HCl 4 mg tablet 2 Active propranolol (Inderal) 80 MG tablet Take 80 mg by mouth. Active thyroid ([place] Thyroid) 90 MG tablet [place] Thyroid 90 mg tablet 6 Active traZODone (Desyrel) 100 MG tablet trazodone 100 mg tablet 1 Active albuterol 108 (90 Base) MCG/ACT inhalerIndicati ons:Bronchopneu monia Inhale 2 puffs every 6 (six) hours if needed for wheezing. 18 g Active albuterol (2.5 MG/3ML) 0.083% nebulizer solutionIndicat ions:Bronchopne umonia,Medicati on refill Take 3 mL (2.5 mg total) by nebulization every 6 (six) hours if needed for wheezing. 75 mL 4 11/19/19 25 Active Active Problems No known active problems Family History Medical History Relation Name Comments Seizures Father Keanu Carvalho Asthma Mother Yonis Carvalho Migraines Mother Yonis Carvalho Thyroid disease Mother Yonis Carvalho Diabetes Paternal Grandmother Brittni Carvalho Relation Name Status Comments Father Keanu Carvalho Mother Yonis Carvalho Paternal Grandmother Brittni Carvalho Social History Tobacco Use Types Packs/Day Years [...] on file Sexual Orientation Not on file Last Filed Vital Signs [...] Mass Index 45.77 11/19/2023 11:14 AM EDT Plan of Treatment Health Maintenance Due Date Last Done Comments HPV Vaccines (1 - 3-dose series) 2012 Pap Smear 2018 Influenza Vaccine (#1) 2023 Insurance [facility] Care Teams Woolen Suiting Shrinker Relationship Specialty Start Date End Date Shakira Santos MD [address] [place] [address] PCP - General Internal Medicine 04/20/21
--- OUTSIDE RECORDS SUMMARY | 2024-03-23 13:12 | XMS_ITS | Encounter Summary ---
Author Organization [facility] Care Address [address] [id number] Care Team Providers Care Wax Ball Knock Out Worker Name Role Phone Unavailable Primary Care Provider Unavailabl e Encounter Details Date Type Department Care Team (Late st Contact Info) Description 02/22/2012 Orders Only [facility] [address] [phone] Blanca Jacobs MD [address] [place], [place] [phone] Social History Tobacco Use Types Packs/Day Years [...] Procedure Name Priority Date/Time Associated Diagnosis Comments ADD ON TEST - SPECIMEN IN LAB Routine 02/22/2012 3:41 PM EST documented in this encounter Results * Add On Test - Specimen In Lab (02/22/2012 3:41 PM EST) ADD-ON TO BLOOD : [facility] Comment:DUPLICATE ORDER SEE [id number] 02/22/2012 3:41 PM EST us Blanca Jacobs MD LAB ADD ON ORDERABLES Final Re sult [facility] [address] [place] [id number] documented in this encounter Visit Diagnoses Not on filedocumented in this encounter
--- OUTSIDE RECORDS SUMMARY | 2024-03-23 13:12 | XMS_ITS | Encounter Summary ---
Author Organization [facility] Address [address] [place] [address] Care Team Providers Care Bladder Blower Name Role Phone Unavailable Primary Care Provider Unavailabl e Encounter Details Date Type Department Care Team (Late st Contact Info) Description 03/07/2014 Abstract ZAYDA MILL WASHER [address] [phone] Jyoti Marin RN Social History Tobacco Use Types Packs/Day Years [...]
--- OUTSIDE RECORDS SUMMARY | 2024-03-23 13:12 | XMS_ITS | Encounter Summary ---
Author Organization [facility] Health Care Address [address] [place] [address] Care Team Providers Care Celluloid Trimmer Name Role Phone Toshia Heller MD Primary Care Provi padma ChuckeyJulito MD Primary Care Pro vider Mali Ascencio MD Primary Care Provider Reason for Visit * Reason Comments Other Encounter Details Date Type Department Care Team (Late st Contact Info) Description 05/07/2014 Refill [facility] [address] [place] [address] Teodoro Mendiola MD [address] [facility] [address] [place] [address] Social History Tobacco Use Types Packs/Day Years Used Date Smoking Tobacco: Never Alcohol Use Standard Drinks/Week Comments No 0 (1 standard drink = 0.6 oz pur e alcohol) PHQ-2 Answer Date Recorded PHQ-2 Total Score 2 09/05/2019 Comments Unknown Sex and Gender Information Value Date Recorded Sex Assigned at Not on file Legal Sex Female 11:55 PM EST Gender Identity Not on file Sexual Orientation Not on file documented as of this encounter Functional Status documented as of this encounter Plan of Treatment Not on file documented as of this encounter Visit Diagnoses Not on filedocumented in this encounter Care Teams Celluloid Trimmer Relationship Specialty Start Date End Date Toshia Heller MD PCP - General 03/13/14 09/05/19 Julito Mayo MD [address] [place] [phone] PCP - General Family Medicine 09/06/19 02/11/20 Mali Ascencio MD [address] [facility] [place] [address] PCP - General Family Medicine 02/12/20 11/19/23 documented as of this encounter
--- OUTSIDE RECORDS SUMMARY | 2024-03-23 13:12 | XMS_ITS | Referral Summary ---
Author Organization [facility] Address [address] [place] [address] Phone [phone] Care Team Providers Care Master Fisher Name Role Phone Shakira Santos MD Primary [...] Take 80 mg by mouth. Active thyroid ([place] Thyroid) 90 MG tablet [place] Thyroid 90 mg tablet 6 Active traZODone (Desyrel) 100 MG tablet trazodone 100 mg tablet 1 Active albuterol 108 (90 Base) MCG/ACT inhalerIndicati ons:Bronchopneu monia Inhale 2 puffs every 6 (six) hours if needed for wheezing. 18 g 4 Active albuterol (2.5 MG/3ML) 0.083% nebulizer solutionIndicat ions:Bronchopne umonia,Medicati on refill Take 3 mL (2.5 mg total) by nebulization every 6 (six) hours if needed for wheezing. 75 mL 4 11/19/19 25 Active Active Problems No known active problems Social History Tobacco Use Types Packs/Day Years [...] 11/19/2023 11:14 AM EDT Plan of Treatment [place] [id number] [facility] Care Teams Master Fisher Relationship Specialty Start Date End Date Shakira Santos MD [address] [place] [address] PCP - General Internal Medicine 04/20/21
--- OUTSIDE RECORDS SUMMARY | 2024-03-23 13:12 | XMS_ITS | Encounter Summary ---
Author Organization [facility] Address [address] [place] [phone] Phone [phone] Care Team Providers Care Area Loss Prevention Manager Name Role Phone Shakira Santos MD Primary Care Provide r Encounter Details Date Type Department Care Team (Latest Contact Info) Description 04/20/2021 Travel Social History Tobacco Use Types Packs/Day [...] AM EDT documented as of this encounter Plan of Treatment Not on file documented as of this encounter Visit Diagnoses Not on filedocumented in this encounter Care Teams Area Loss Prevention Manager Relationship Specialty Start Date End Date Shakira Santos MD [address] [place] [address] PCP - General Internal Medicine 04/20/21 documented as of this encounter
== END 2024-03-23 13:17 | disposition home or self-care (01) ==
PROVIDERS: Emergency Provider Registered Nurse Emergency
DX: T78.40XA Allergy, unspecified, initial encounter (principal); L50.0 Allergic urticaria
CPT/HCPCS: 96374; 96375; 99284; 99283; J1200; J2919